=== PATIENT | male | born 1975 | race Caucasian/White ===

== ENCOUNTER 2016-09-24 17:18 | Inpatient (IN) | payer MEDICAID, SELFPAY ==
[~2016-09-24] VITALS: Ht 188 cm; Wt 85.2 kg
[~2016-09-24 17:18] MED LIST: CELE20TA OR; NEUR300C OR; aleve; aleve PO
[2016-09-24 19:24] LABS: MEAN CORPUSCULAR HEMOGLOBIN 28.6 pg (27.0-33.0); MEAN CORPUSCULAR HGB CONC 33.3 g/dl (32.0-36.5); MEAN CORPUSCULAR VOLUME 85.8 fl (80.0-96.0); RED CELL DISTRIBUTION WIDTH 14.5 % (11.5-14.5); WHITE BLOOD COUNT 9.8 K/mm3 (4.0-10.0)
[2016-09-24 19:34] LABS: AMPHETAMINES LEVEL URINE NEGATIVE (NEGATIVE); BENZODIAZEPINES URINE NEGATIVE (NEGATIVE); COCAINE METABOLITE URINE NEGATIVE (NEGATIVE); CONTROL LINE INT CTR LINE PRESENT; METHADONE URINE NEGATIVE (NEGATIVE); OPIATES URINE NEGATIVE (NEGATIVE); TRICYCLIC ANTIDEPRESS URINE NEGATIVE (NEGATIVE)
[2016-09-24 19:52] LABS: ALBUMIN 4.2 GM/DL (3.2-5.2); ALBUMIN/GLOBULIN RATIO 1.31 (1.00-1.93); ALKALINE PHOSPHATASE 61 U/L (45-117); ALT/SGPT 21 U/L (12-78); ANION GAP 9 MEQ/L (8-16); AST/SGOT 15 U/L (15-37); BILIRUBIN,DIRECT 0.1 MG/DL (0.0-0.2); BILIRUBIN,TOTAL 0.3 MG/DL (0.2-1.0); BLOOD UREA NITROGEN 20 MG/DL (7-18); CALCIUM LEVEL 9.2 MG/DL (8.5-10.1); CARBON DIOXIDE LEVEL 30 MEQ/L (21-32); CHLORIDE LEVEL 103 MEQ/L (98-107); CREATININE FOR GFR 1.19 MG/DL (0.70-1.30); GLOMERULAR FILTRATION RATE > 60.0 (>60); GLUCOSE, FASTING 125 MG/DL (70-105); POTASSIUM SERUM 4.1 MEQ/L (3.5-5.1); SODIUM LEVEL 142 MEQ/L (136-145); TOTAL PROTEIN 7.4 GM/DL (6.4-8.2)
[2016-09-24] MEDS ORDERED: MOM 30ML SUSPENSION UDC PO PRN (20:15)
[2016-09-24] MEDS ORDERED: traZODone 50 MG TAB PO PRN (20:15)
[2016-09-24] MEDS ORDERED: MAALOX 30 ML SUSP *UDC PO PRN (20:15)
[2016-09-24] MEDS ORDERED: ACETAMINOPHEN TAB 650MG DOSE (2X325MG) PO PRN (20:15)
[2016-09-24 20:41] VITALS: BP 131/80
--- NOTE | 2016-09-24 20:48 | EDDOCDS ---
Physician Documentation [facility] Name: Brenda Sweeney Age: 41 yrs Sex: Male : 1975 Arrival Date: 09/24/2016 Time: 17:18 Bed [facility] Private MD: NO PRIMARY PHYSICIAN, . Disposition: 09/24/16 20:26 Hospitalization ordered by Phani Downing for Inpatient Admission. Preliminary diagnosis is Adjustment disorder with depressed mood. - Bed requested for Admit. - Status is Inpatient Admission. slm - Condition is Stable. - Problem is new. - Symptoms are unchanged. Historical: - Allergies: PENICILLINS (Hives); - Home Meds: 1. none - PMHx: Depression; Degenerative disc disease; herniated discs C6-7; - PSHx: left eye FB; - Social history: Smoking status: Patient uses tobacco products, current every day smoker. No barriers to communication noted, The patient speaks fluent Mexican. - Family history: Not pertinent. - : The pt / caregiver states he / she is not on anticoagulants. Home medication list is obtained from the patient. - Exposure Risk Screening:: None identified. Vital Signs: 09/24 17:19 BP 152 / 92; Pulse 112; Resp 20; Temp 96.0; Pulse Ox 99% ; Weight 81.65 kg / 180.01 elp lbs; Height 6 ft. 2 in. (187.96 cm); Pain 0/10; 20:28 BP 145 / 91; Pulse 83; Resp 18; Temp 97.5(O); Pulse Ox 99% ; Pain 0/10; mas 17:19 Body Mass Index 23.11 (81.65 kg, 187.96 cm) elp MDM: 17:31 REGULAR DIET PLASTIC ROBERTS+DIET ordered. EDMS 17:38 Consult PFS/PSA/Cable Dispatcher ordered. br1 17:38 Consult PFS/PSA/Cable Dispatcher: Patient's case requires discussion with on-call br1 Psychiatrist ordered. 17:38 PSA/PFS to call Nursing Lean Manager, to enter patient data on [place] Safe Act if patient br1 involuntarily admitted or transferred for SI or HI ordered. 17:38 Confirm accurate psychiatric medication list and times of last dosage ordered. br1 17:38 Detain Pt Until Medically/PFS Cleared ordered. br1 17:40 Ethyl Alcohol (ethanol) Ordered. EDMS 18:39 Acetaminophen Level Ordered. EDMS 18:39 Basic Metabolic Profile Ordered. EDMS 18:39 Complete Blood Count Ordered. EDMS 18:39 Drug Eval Toxicology ED Only Ordered. EDMS 18:39 Liver Profile Ordered. EDMS 18:39 Salicylate Level Ordered. EDMS 18:39 Thyroid Stimulating Hormone Ordered. EDMS 19:51 Complete Blood Count Reviewed. br1 19:51 Drug Eval Toxicology ED Only Reviewed. br1 20:08 Financial registration complete. zo 20:10 Consult PFS/PSA/Cable Dispatcher complete. ml4 20:10 Consult PFS/PSA/Cable Dispatcher: Patient's case requires discussion with on-call ml4 Psychiatrist complete. 20:10 PSA/PFS to call Nursing Lean Manager, to enter patient data [place] Safe [place] if patient ml4 involuntarily admitted or transferred for SI or HI complete. 20:13 Admit to [facility]: ordered. EDMS 20:14 REGULAR DIET ordered. EDMS 20:15 [facility] Legal paperwork was scanned into [employer] and attached to record. ml4 20:21 Acetaminophen Level Reviewed. br1 20:21 Basic Metabolic Profile Reviewed. br1 20:21 Salicylate Level Reviewed. br1 20:21 Liver Profile Reviewed. br1 20:21 Thyroid Stimulating Hormone Reviewed. br1 20:45 ETHYL ALCOHOL (ETHANOL) Ordered. EDMS Signatures: Dispatcher [employer] EDMS Jennie Olea, PSA PSA ml4 Nathan Pierre Brian, MD MD br1 Leti De La Vega, RN RN Martnie Do LPN LPN slm The chart was reviewed and I authenticate all verbal orders and agree with the evaluation and treatment provided.Corrections: (The following items were deleted from the chart) 17:42 17:40 ACETAMINOPHEN LEVEL+LAB ordered. EDMS EDMS 17:42 17:40 BASIC METABOLIC PROFILE+LAB ordered. EDMS EDMS 17:42 17:40 COMPLETE BLOOD COUNT+LAB ordered. EDMS EDMS 17:42 17:40 DRUG EVAL TOXICOLOGY ED ONLY+LAB ordered. EDMS EDMS MTDD
--- NOTE | 2016-09-24 20:49 | EDDOCDS ---
Nurse's Notes [facility] Name: Brenda Sweeney Age: 41 yrs Sex: Male : 1975 Arrival Date: 09/24/2016 Time: 17:18 Bed [facility] Private MD: NO PRIMARY PHYSICIAN, . Diagnosis: Adjustment disorder with depressed mood Presentation: 09/24 17:22 Presenting complaint: Patient states: increased depression over past couple weeks with jjr some SI. Mental Health Triage Level: Level 2: The patient displays active suicidal ideations. Adult Sepsis Screening: The patient does not have new or worsening altered mentation. Patient's respiratory rate is less than 22. Systolic blood pressure is greater than 100. Patient has a qSOFA score of 0- Negative Sepsis Screen. Suicide/Homicide risk assessment- The patient admits to and/or has been reported to be having suicidal ideations. The patient reports that he/she has not been admitted to an inpatient mental health facility in the last 30 days. The patient reports that he/she has a recent or current history of substance abuse. The patient reports that he/she has a prior history of suicide attempt and/or organized plan. Status: Patient is not a visitor services representative or dependent. Transition of care: patient was not received from another setting of care. 17:22 Acuity: ALO Level 3 jjr 17:22 Method Of Arrival: Walkin/Carried/Asstd jjr Triage Assessment: 17:24 General: Appears in no apparent distress, Behavior is appropriate for age, cooperative. jjr Pain: Denies pain. Pt Declines HIV testing. Historical: - Allergies: PENICILLINS (Hives); - Home Meds: 1. none - PMHx: Depression; Degenerative disc disease; herniated discs C6-7; - PSHx: left eye FB; - Social history: Smoking status: Patient uses tobacco products, current every day smoker. No barriers to communication noted, The patient speaks fluent Slovenian. - Family history: Not pertinent. - : The pt / caregiver states he / she is not on anticoagulants. Home medication list is obtained from the patient. - Exposure Risk Screening:: None identified. Screenin:17 Screening information is obtained from the patient. Fall risk: No risks identified. slm Assistance ADL's: requires no assistance with activities of daily living. Nutritional screening: No deficits noted. Advance Directives: Currently, there is no health care proxy. There is no active DNR order. There is no living will. There is no Power of Hot Metal Mixer Operator. Advance directive information has not previously been placed in an [facility] medical record. Further advance directive information is declined. 20:30 Abuse/DV Screen: The patient / caregiver reports he/she is: not in a situation that slm causes fear, pain or injury. home support is adequate. Assessment: 19:17 General: Appears in no apparent distress, comfortable, Behavior is appropriate for age, slm cooperative, quiet. General:. Respiratory: Airway is patent Respiratory effort is even, unlabored. Derm: Skin is pink, warm & dry. 19:18 General: pt sitting on stretcher quietly labs done at this time pt denies needs slm security observing . 20:09 General: Appears in no apparent distress, comfortable, Behavior is appropriate for age, slm cooperative, quiet, pt sitting on stretcher security observing . 20:29 Reassessment: Patient appears in no apparent distress at this time. [facility] Mental Health Eval: 18:40 Mental health consult is initiated at 18:30. Status: The patient is not a ml4 visitor services representative or dependent. [facility] Behavioral Health: The patient is not an established patient of [facility] Behavioral Health. Referral Information: Evaluation referral is generated by the patient himself / herself. The patient was referred for evaluation because fleeting thoughts of suicide with no specific plan. . Subjective: The patients chief complaint is pt states, "I'm just really depressed and I want to ." Pt reports suffering from suicide for the past 2 wks with no specific plan. Suicidal triggers include having relational problems with family, along with being homeless. Admits being homeless for one year in [place], then decided to move back to [place] July(2015) hoping his family would help him out. States he's been living with his Mother since July, but now has left her residence due to on-going relational problems. Pt states, "she's an alcoholic and treats me bad." Other stressors include reflecting back on his mistakes this past summer where he was abusing Meth. Admits having trouble grasping the fact he was smoking meth and feels guilty. Pt appears very depressed at bedside, tearful, continues to voice SI, no plan. . Delusions are denied. Patient's mood is depressed, hopeless, Hallucinations are denied. Mental Health history: ADHD, alcohol abuse, depression, abusing methamphetamine. Mental Health Admissions: [facility], 01/18/12 and d/c 01/24/12 after SI with plan to jump in front of a car. He was also hospitalized to [facility] following a suicide attempt(10 Vicodin tablets mixed with alcohol) on 03/26/03 and d/c 03/31/03 Current Outpatient Mental Health Services: None. Current living environment is Family / Home Support: poor family support homeless. The patient is . Patient presents to Emergency Department with the following symptoms within the past 2 weeks: agitation, anger, anxiety, decreased appetite, depressed mood, drug abuse, excessive guilt, feelings of helplessness/hopelessness, non-compliance, poor concentration, relational problem, sleep disturbance - insomnia, suicidal ideation with no plan. Substance abuse: Patient uses marijuana one joint monthly Patient uses tobacco less than a 1/2 a pack Frequency daily. Mental status exam: Patients appearance is appropriate, Patient's behavior is cooperative, Speech is slow. Affect is flat. Mood is depressed. Hallucinations are denied. Appetite is poor. Memory is good. Energy level is normal. Content of thought is depressive. due to active SI with no plan. Thought process is intact. Cognitive level is oriented to person, place, time and situation Patient's insight is fair. Judgement is fair. Rapport with interviewer is good. Suicidal Ideation is present with no specific plan. Homicidal ideation is denied. Disposition: Medically cleared for disposition by Ezekiel Murphy MD. Narrative: Awaiting psychiatric consult... 20:05 Disposition: Psychiatric Consult is performed by phone with Dr Phain Downing MD. [facility] ml4 Admission Criteria: The patient is experiencing suicidal ideation. The patient requires continuous observation and/or control to protect self, others or property. The patient's care requires a multi-modal treatment plan under close supervision and coordination due to the complexity and severity of the patient's symptoms. The patient requires administration and monitoring of psychoactive medications by skilled medical providers due to the side effects of the psychoactive medications or significant dosage adjustments. Legal Status: Patient's legal status will be Emergency admission: [place] Safe Act: [place] Safe Act is applicable to this patient. The patient poses a risk to self or other and the Nursing Animal Trainer has been notified. He/She will enter the patient's data. DSM-V Differential Diagnosis: Adjustment Disorder (F43.2) with depressed mood (F43.21). Narrative: Notice of Status and Rights, FAQ, and Bill of Rights was given at bedside. Vital Signs: 17:19 BP 152 / 92; Pulse 112; Resp 20; Temp 96.0; Pulse Ox 99% ; Weight 81.65 kg; Height 6 elp ft. 2 in. (187.96 cm); Pain 0/10; 20:28 BP 145 / 91; Pulse 83; Resp 18; Temp 97.5(O); Pulse Ox 99% ; Pain 0/10; mas 17:19 Body Mass Index 23.11 (81.65 kg, 187.96 cm) elp Vitals: 17:19 Log In Time: September 24, 2016 at 17:17. RN notified that patient meets Red Flag elp criteria. ED Course: 17:19 Patient visited by Amy Ortiz PCA. elp 17:19 NO PRIMARY PHYSICIAN, . is Private Physician. elp 17:19 Patient moved to Waiting elp 17:21 Patient visited by Amy Ortiz PCA. elp 17:23 Triage Initiated jjr 17:25 Patient moved to [facility] jjr 17:28 Ezekiel Murphy MD is Attending Physician. br1 17:35 Patient visited by Flavia Franklin PCA. tmm1 17:51 Patient visited by Flavia Franklin PCA. tmm1 18:06 Patient visited by Flavia Franklin PCA. tmm1 18:13 Patient visited by Flavia Franklin PCA. tmm1 18:17 Patient visited by Ezekiel Murphy MD. br1 18:27 Patient visited by Flavia Franklin PCA. tmm1 18:44 Patient visited by Flavia Franklin PCA. tmm1 18:56 Patient visited by Flavia Franklin PCA. tmm1 19:10 Patient visited by Viraj Cortez, Security Aide. pjf 19:17 Martine Hickman LPN is Primary Nurse. slm 19:19 Patient visited by Martine Hickman LPN. slm 19:20 Acetaminophen Level Sent. slm 19:20 Basic Metabolic Profile Sent. slm 19:20 Complete Blood Count Sent. slm 19:20 Drug Eval Toxicology ED Only Sent. slm 19:20 Liver Profile Sent. slm 19:20 Salicylate Level Sent. slm 19:20 Thyroid Stimulating Hormone Sent. slm 19:20 Ethyl Alcohol (ethanol) Sent. slm 19:30 Patient visited by Ehsan Cleaning. mas 19:48 Patient visited by Ehsan Cleaning. mas 20:02 Patient visited by Martine Hickman LPN. [facility] 20:15 [facility] Legal paperwork was scanned into [employer] and attached to record. ml4 20:16 Patient visited by Ehsan Cleaning. mas 20:26 Phani Downing MD is Hospitalizing Provider. br1 20:29 Patient visited by Ehsan Cleaning. mas 20:30 Patient visited by Martine Hickman LPN. slm 20:30 The patient / caregiver is instructed regarding the plan of care and ED course. Patient slm has correct armband on for positive identification. Placed in psych safe attire. Bed in low position. Call light in reach. Security observing. 20:30 No IV's were initiated during this patient's visit. No procedures done that require slm assistance. 20:45 Patient visited by Ehsan Cleaning. [facility] Attachments: 20:15 E Legal paperwork ml4 Order Results: Lab Order: Acetaminophen Level; SPEC'M 09/24/16 19:14 Test: ACETAMINOPHEN LEVEL; Value: < 2.0; Range: 10.0-30.0; Abnormal: Below low normal; Units: UG/ML; Status: F Lab Order: Basic Metabolic Profile; SPEC'M 09/24/16 19:14 Test: GLUCOSE, FASTING; Value: 125; Range: 70-105; Abnormal: Above high normal; Units: MG/DL; Status: F Test: BLOOD UREA NITROGEN; Value: 20; Range: 7-18; Abnormal: Above high normal; Units: MG/DL; Status: F Test: CREATININE FOR GFR; Value: 1.19; Range: 0.70-1.30; Units: MG/DL; Status: F Test: GLOMERULAR FILTRATION RATE; Value: > 60.0; Range: >60; Status: F Test: SODIUM LEVEL; Value: 142; Range: 136-145; Units: MEQ/L; Status: F Test: POTASSIUM SERUM; Value: 4.1; Range: 3.5-5.1; Units: MEQ/L; Status: F Test: CHLORIDE LEVEL; Value: 103; Range: 98-107; Units: MEQ/L; Status: F Test: CARBON DIOXIDE LEVEL; Value: 30; Range: 21-32; Units: MEQ/L; Status: F Test: ANION GAP; Value: 9; Range: 8-16; Units: MEQ/L; Status: F Test: CALCIUM LEVEL; Value: 9.2; Range: 8.5-10.1; Units: MG/DL; Status: F Test Note: ; Units are mL/min/1.73 m2 Chronic Kidney Disease Staging per NKF: Stage I & II GFR >=60 Normal to Mildly Decreased Stage III GFR 30-59 Moderately Decreased Stage IV GFR 15-29 Severely Decreased Stage V GFR <15 Very Little GFR Left ESRD GFR <15 on PAYROLL ADMINISTRATOR Lab Order: Complete Blood Count; [facility]' 09/24/16 19:14 Test: WHITE BLOOD COUNT; Value: 9.8; Range: 4.0-10.0; Units: K/mm3; Status: F Test: RED BLOOD COUNT; Value: 5.23; Range: 4.30-6.10; Units: M/mm3; Status: F Test: HEMOGLOBIN; Value: 15.0; Range: 14.0-18.0; Units: g/dl; Status: F Test: HEMATOCRIT; Value: 44.9; Range: 42.0-52.0; Units: %; Status: F Test: MEAN CORPUSCULAR VOLUME; Value: 85.8; Range: 80.0-96.0; Units: fl; Status: F Test: MEAN CORPUSCULAR HEMOGLOBIN; Value: 28.6; Range: 27.0-33.0; Units: pg; Status: F Test: MEAN CORPUSCULAR HGB CONC; Value: 33.3; Range: 32.0-36.5; Units: g/dl; Status: F Test: RED CELL DISTRIBUTION WIDTH; Value: 14.5; Range: 11.5-14.5; Units: %; Status: F Test: PLATELET COUNT, AUTOMATED; Value: 324; Range: 150-450; Units: k/mm3; Status: F Lab Order: Drug Eval Toxicology ED Only; SPEC'M 09/24/16 19:14 Test: AMPHETAMINES LEVEL URINE; Value: NEGATIVE; Range: NEGATIVE; Status: F Test: BARBITURATES URINE; Value: NEGATIVE; Range: NEGATIVE; Status: F Test: BENZODIAZEPINES URINE; Value: NEGATIVE; Range: NEGATIVE; Status: F Test: CANNABINOIDS URINE; Value: NEGATIVE; Range: NEGATIVE; Status: F Test: COCAINE METABOLITE URINE; Value: NEGATIVE; Range: NEGATIVE; Status: F Test: METHADONE URINE; Value: NEGATIVE; Range: NEGATIVE; Status: F Test: OPIATES URINE; Value: NEGATIVE; Range: NEGATIVE; Status: F Test: TRICYCLIC ANTIDEPRESS URINE; Value: NEGATIVE; Range: NEGATIVE; Status: F Test Note: ; ALL PRESUMPTIVE POSITIVE FINDINGS ARE UNCONFIRMED NORMAL VALUES THRESHOLD IN NG/ML AMPHETAMINES 1000 METHAMPHETAMINES 1000 BARBITURATES 300 BENZODIAZEPINES 300 CANNABINOIDS (THC) 50 COCAINE METABOLITE 300 METHADONE 300 OPIATES 300 PHENCYCLIDINE 25 TRICYCLIC ANTIDEPRESSANTS 1000 RESULTS ARE FOR MEDICAL PURPOSES ONLY. ALL URINE SPECIMENS WILL BE SAVED FOR 3 DAYS. IF CONFIRMATION OF A PRESUMPTIVE POSTIVE SCREEN RESULT IS DESIRED, CALL CHEMISTRY ([phone]) AND REQUEST URINE TO BE SENT TO REFERENCE LAB. FOR A LIST OF CLOSELY RELATED COMPOUNDS PLEASE CALL THE LAB. Lab Order: Liver Profile; SPEC'M 09/24/16 19:14 Test: AST/SGOT; Value: 15; Range: 15-37; Units: U/L; Status: F Test: ALT/SGPT; Value: 21; Range: 12-78; Units: U/L; Status: F Test: ALKALINE PHOSPHATASE; Value: 61; Range: 45-117; Units: U/L; Status: F Test: BILIRUBIN,TOTAL; Value: 0.3; Range: 0.2-1.0; Units: MG/DL; Status: F Test: BILIRUBIN,DIRECT; Value: 0.1; Range: 0.0-0.2; Units: MG/DL; Status: F Test: TOTAL PROTEIN; Value: 7.4; Range: 6.4-8.2; Units: GM/DL; Status: F Test: ALBUMIN; Value: 4.2; Range: 3.2-5.2; Units: GM/DL; Status: F Test: ALBUMIN/GLOBULIN RATIO; Value: 1.31; Range: 1.00-1.93; Status: F Lab Order: Salicylate Level; SPEC'M 09/24/16 19:14 Test: SALICYLATE LEVEL; Value: < 1.7; Range: 5.0-30.0; Abnormal: Below low normal; Units: MG/DL; Status: F Lab Order: Thyroid Stimulating Hormone; SPEC'M 09/24/16 19:14 Test: THYROID STIMULATING HORMONE; Value: 0.593; Range: 0.358-3.740; Units: uIU/ML; Status: F Outcome: 20:26 Decision to Hospitalize by Provider. br1 20:29 Discharge Assessment: Patient awake, alert and oriented x 3. No cognitive and/or slm functional deficits noted. Patient verbalized understanding of disposition instructions. patient administered narcotics - no. The following High Risk Discharge criteria are identified: None. Admitted to Psych accompanied by tech, via wheelchair, with chart. Condition: stable. No special radiology studies were completed. Property removed, inventory done, secured in belongings bag- placed in locked locker. 20:47 Patient left the ED. slm Signatures: Viraj Cortez, Security Aide Securpsobeidaf Jennie Olea, PSA PSA ml4 Ezekiel Murphy MD MD br1 Leti De La Vega, RN RN Ehsan Prakash Theresa, MEMORY CARE DIRECTOR MEMORY CARE DIRECTOR tmm1 Patchen, Amy, MEMORY CARE DIRECTOR MEMORY CARE DIRECTOR elp Martine Hickman,BILINGUAL ACCOUNT MANAGER BILINGUAL ACCOUNT MANAGER slm MTDD
[2016-09-25 06:08] VITALS: BP 102/58
[2016-09-25] MEDS ORDERED: NICOTINE 21MG/24HR 1 EA TRANSDERMAL TD SCH (09:00)
[2016-09-25] MEDS: SERTRALINE HCL 50 MG TAB PO SCH (10:20)
[2016-09-25 18:00] VITALS: BP 142/68
[2016-09-26 06:47] VITALS: BP 117/72
[2016-09-26] MEDS: SERTRALINE HCL 50 MG TAB PO SCH (08:28)
--- NOTE | 2016-09-26 10:48 | HPE ---
DATE OF ADMISSION: HISTORY OF PRESENT ILLNESS: Please refer to psychiatric history and evaluation for further details on this admission. This examination and history is intended for medical issues, which may need treatment, followup or consultation on this 41-year-old male. PRIMARY CARE PROVIDER: Currently he has none. ALLERGIES: PENICILLIN. SOCIAL HISTORY: He is . Her lives alone. He stays at home. ETOH, he has a history of alcohol abuse. He states he only drinks once or twice a year now. Smoking, he smokes one pack of cigarettes per day. Recreational drug use, he was using methamphetamine (meth) daily, states he has not used it for two months. Occasionally smokes marijuana. HOME MEDICATIONS: None. PAST MEDICAL HISTORY: Degenerative joint disease. PAST SURGICAL HISTORY: Removal of foreign body left eye. FAMILY HISTORY: Mother has he states alcohol problems. LABORATORY STUDIES: CBC was normal. Electrolytes were normal. BUN 20, creatinine 1.19, urine toxicology was negative. REVIEW OF SYSTEMS: Ten system review was done. Other than occasional back pain he had no complaints. PHYSICAL EXAMINATION: GENERAL: 41-year-old cooperative male in no acute distress. The patient is awake, alert and oriented times three. VITAL SIGNS: Height 74 inches, weight 81.6 kilograms, Body maximum index (BMI) 23.1, blood pressure 140/68, pulse 78, respirations 16, temperature 96.9. HEENT: Pupils equal, round, reactive to light. Extraocular muscles intact. Cornea and sclerae clear. Conjunctiva is normal. No facial asymmetry. Pharynx, tongue and gum is pink and moist. Tongue is midline. NECK: Neck is supple without lymphadenopathy. No thyromegaly. No goiter. CHEST: Clear to auscultation without wheeze or retraction. HEART: Heart is regular. ABDOMEN: Benign. Bowel sounds positive. Genitourinary ()/Rectal: Not done. Extremities: Equal strength with full range of motion. No clubbing, cyanosis, or edema. Peripheral pulses are equal and palpable bilaterally. SKIN: Warm and dry. IMPRESSION AND PLAN: 1. Psychiatric plan per psychiatry. 2. Nicotine patch available. 3. Degenerative joint disease currently stable. 4. No acute medical issues.
[2016-09-26 18:00] VITALS: BP 135/75
--- NOTE | 2016-09-26 21:48 | EDDOCDS ---
Nurse's Notes [facility] Name: Brenda Sweeney Age: 41 yrs Sex: Male : 1975 Arrival Date: 09/24/2016 Time: 17:18 Bed [facility] Private MD: NO PRIMARY PHYSICIAN, . Diagnosis: Adjustment disorder with depressed mood Presentation: 09/24 17:22 Presenting complaint: Patient states: increased depression over past couple weeks with jjr some SI. Mental Health Triage Level: Level 2: The patient displays active suicidal ideations. Adult Sepsis Screening: The patient does not have new or worsening altered mentation. Patient's respiratory rate is less than 22. Systolic blood pressure is greater than 100. Patient has a qSOFA score of 0- Negative Sepsis Screen. Suicide/Homicide risk assessment- The patient admits to and/or has been reported to be having suicidal ideations. The patient reports that he/she has not been admitted to an inpatient mental health facility in the last 30 days. The patient reports that he/she has a recent or current history of substance abuse. The patient reports that he/she has a prior history of suicide attempt and/or organized plan. Status: Patient is not a service coordinator or dependent. Transition of care: patient was not received from another setting of care. 17:22 Acuity: ALO Level 3 jjr 17:22 Method Of Arrival: Walkin/Carried/Asstd jjr Triage Assessment: 17:24 General: Appears in no apparent distress, Behavior is appropriate for age, cooperative. jjr Pain: Denies pain. Pt Declines HIV testing. Historical: - Allergies: PENICILLINS (Hives); - Home Meds: 1. none - PMHx: Depression; Degenerative disc disease; herniated discs C6-7; - PSHx: left eye FB; - Social history: Smoking status: Patient uses tobacco products, current every day smoker. No barriers to communication noted, The patient speaks fluent Maori. - Family history: Not pertinent. - : The pt / caregiver states he / she is not on anticoagulants. Home medication list is obtained from the patient. - Exposure Risk Screening:: None identified. Screenin:17 Screening information is obtained from the patient. Fall risk: No risks identified. slm Assistance ADL's: requires no assistance with activities of daily living. Nutritional screening: No deficits noted. Advance Directives: Currently, there is no health care proxy. There is no active DNR order. There is no living will. There is no Power of Real Time Analyst. Advance directive information has not previously been placed in an [facility] medical record. Further advance directive information is declined. 20:30 Abuse/DV Screen: The patient / caregiver reports he/she is: not in a situation that slm causes fear, pain or injury. home support is adequate. Assessment: 19:17 General: Appears in no apparent distress, comfortable, Behavior is appropriate for age, slm cooperative, quiet. General:. Respiratory: Airway is patent Respiratory effort is even, unlabored. Derm: Skin is pink, warm & dry. 19:18 General: pt sitting on stretcher quietly labs done at this time pt denies needs slm security observing . 20:09 General: Appears in no apparent distress, comfortable, Behavior is appropriate for age, slm cooperative, quiet, pt sitting on stretcher security observing . 20:29 Reassessment: Patient appears in no apparent distress at this time. [facility] Mental Health Eval: 18:40 Mental health consult is initiated at 18:30. Status: The patient is not a ml4 service coordinator or dependent. [facility] Behavioral Health: The patient is not an established patient of [facility] Behavioral Health. Referral Information: Evaluation referral is generated by the patient himself / herself. The patient was referred for evaluation because fleeting thoughts of suicide with no specific plan. . Subjective: The patients chief complaint is pt states, "I'm just really depressed and I want to ." Pt reports suffering from suicide for the past 2 wks with no specific plan. Suicidal triggers include having relational problems with family, along with being homeless. Admits being homeless for one year in [place], then decided to move back to [place] July(2015) hoping his family would help him out. States he's been living with his Mother since July, but now has left her residence due to on-going relational problems. Pt states, "she's an alcoholic and treats me bad." Other stressors include reflecting back on his mistakes this past summer where he was abusing Meth. Admits having trouble grasping the fact he was smoking meth and feels guilty. Pt appears very depressed at bedside, tearful, continues to voice SI, no plan. . Delusions are denied. Patient's mood is depressed, hopeless, Hallucinations are denied. Mental Health history: ADHD, alcohol abuse, depression, abusing methamphetamine. Mental Health Admissions: [facility], 01/18/12 and d/c 01/24/12 after SI with plan to jump in front of a car. He was also hospitalized to [facility] following a suicide attempt(10 Vicodin tablets mixed with alcohol) on 03/26/03 and d/c 03/31/03 Current Outpatient Mental Health Services: None. Current living environment is Family / Home Support: poor family support homeless. The patient is . Patient presents to Emergency Department with the following symptoms within the past 2 weeks: agitation, anger, anxiety, decreased appetite, depressed mood, drug abuse, excessive guilt, feelings of helplessness/hopelessness, non-compliance, poor concentration, relational problem, sleep disturbance - insomnia, suicidal ideation with no plan. Substance abuse: Patient uses marijuana one joint monthly Patient uses tobacco less than a 1/2 a pack Frequency daily. Mental status exam: Patients appearance is appropriate, Patient's behavior is cooperative, Speech is slow. Affect is flat. Mood is depressed. Hallucinations are denied. Appetite is poor. Memory is good. Energy level is normal. Content of thought is depressive. due to active SI with no plan. Thought process is intact. Cognitive level is oriented to person, place, time and situation Patient's insight is fair. Judgement is fair. Rapport with interviewer is good. Suicidal Ideation is present with no specific plan. Homicidal ideation is denied. Disposition: Medically cleared for disposition by Ezekiel Murphy MD. Narrative: Awaiting psychiatric consult... 20:05 Disposition: Psychiatric Consult is performed by phone with Dr Phani Downing MD. [facility] ml4 Admission Criteria: The patient is experiencing suicidal ideation. The patient requires continuous observation and/or control to protect self, others or property. The patient's care requires a multi-modal treatment plan under close supervision and coordination due to the complexity and severity of the patient's symptoms. The patient requires administration and monitoring of psychoactive medications by skilled medical providers due to the side effects of the psychoactive medications or significant dosage adjustments. Legal Status: Patient's legal status will be Emergency admission: [place] Safe Act: [place] Safe Act is applicable to this patient. The patient poses a risk to self or other and the Nursing Opticianry Teacher has been notified. He/She will enter the patient's data. DSM-V Differential Diagnosis: Adjustment Disorder (F43.2) with depressed mood (F43.21). Narrative: Notice of Status and Rights, FAQ, and Bill of Rights was given at bedside. Vital Signs: 17:19 BP 152 / 92; Pulse 112; Resp 20; Temp 96.0; Pulse Ox 99% ; Weight 81.65 kg; Height 6 elp ft. 2 in. (187.96 cm); Pain 0/10; 20:28 BP 145 / 91; Pulse 83; Resp 18; Temp 97.5(O); Pulse Ox 99% ; Pain 0/10; mas 17:19 Body Mass Index 23.11 (81.65 kg, 187.96 cm) elp Vitals: 17:19 Log In Time: September 24, 2016 at 17:17. RN notified that patient meets Red Flag elp criteria. ED Course: 17:19 Patient visited by Amy Ortiz PCA. elp 17:19 NO PRIMARY PHYSICIAN, . is Private Physician. elp 17:19 Patient moved to Waiting elp 17:21 Patient visited by Amy Ortiz PCA. elp 17:23 Triage Initiated jjr 17:25 Patient moved to [facility] jjr 17:28 Ezekiel Murphy MD is Attending Physician. br1 17:35 Patient visited by Flavia Franklin PCA. tmm1 17:51 Patient visited by Flavia Franklin PCA. tmm1 18:06 Patient visited by Flavia Franklin PCA. tmm1 18:13 Patient visited by Flavia Franklin PCA. tmm1 18:17 Patient visited by Ezekiel Murphy MD. br1 18:27 Patient visited by Flavia Franklin PCA. tmm1 18:44 Patient visited by Flavia Franklin PCA. tmm1 18:56 Patient visited by Flavia Franklin PCA. tmm1 19:10 Patient visited by Viraj Cortez, Security Aide. pjf 19:17 Martine Hickman LPN is Primary Nurse. slm 19:19 Patient visited by Martine Hickman LPN. slm 19:20 Acetaminophen Level Sent. slm 19:20 Basic Metabolic Profile Sent. slm 19:20 Complete Blood Count Sent. slm 19:20 Drug Eval Toxicology ED Only Sent. slm 19:20 Liver Profile Sent. slm 19:20 Salicylate Level Sent. slm 19:20 Thyroid Stimulating Hormone Sent. slm 19:20 Ethyl Alcohol (ethanol) Sent. slm 19:30 Patient visited by Ehsan Cleaning. mas 19:48 Patient visited by Ehsan Cleaning. mas 20:02 Patient visited by Martine Hickman LPN. slm 20:15 E Legal paperwork was scanned into [employer] and attached to record. ml4 20:16 Patient visited by Ehsan Cleaning. mas 20:26 Phani Downing MD is Hospitalizing Provider. br1 20:29 Patient visited by Ehsan Cleaning. mas 20:30 Patient visited by Martine Hickman LPN. slm 20:30 The patient / caregiver is instructed regarding the plan of care and ED course. Patient slm has correct armband on for positive identification. Placed in psych safe attire. Bed in low position. Call light in reach. Security observing. 20:30 No IV's were initiated during this patient's visit. No procedures done that require slm assistance. 20:45 Patient visited by Ehsan Cleaning. mas 21:06 [facility] Payment Agreement was scanned into [employer] and attached to record. zo 09/25 20:56 T-Sheet-- Draft Copy was scanned into [employer] and attached to record. klr Attachments: 09/24 20:15 E Legal paperwork ml4 Order Results: Lab Order: Acetaminophen Level; SPEC'M 09/24/16 19:14 Test: ACETAMINOPHEN LEVEL; Value: < 2.0; Range: 10.0-30.0; Abnormal: Below low normal; Units: UG/ML; Status: F Lab Order: Basic Metabolic Profile; SPEC'M 09/24/16 19:14 Test: GLUCOSE, FASTING; Value: 125; Range: 70-105; Abnormal: Above high normal; Units: MG/DL; Status: F Test: BLOOD UREA NITROGEN; Value: 20; Range: 7-18; Abnormal: Above high normal; Units: MG/DL; Status: F Test: CREATININE FOR GFR; Value: 1.19; Range: 0.70-1.30; Units: MG/DL; Status: F Test: GLOMERULAR FILTRATION RATE; Value: > 60.0; Range: >60; Status: F Test: SODIUM LEVEL; Value: 142; Range: 136-145; Units: MEQ/L; Status: F Test: POTASSIUM SERUM; Value: 4.1; Range: 3.5-5.1; Units: MEQ/L; Status: F Test: CHLORIDE LEVEL; Value: 103; Range: 98-107; Units: MEQ/L; Status: F Test: CARBON DIOXIDE LEVEL; Value: 30; Range: 21-32; Units: MEQ/L; Status: F Test: ANION GAP; Value: 9; Range: 8-16; Units: MEQ/L; Status: F Test: CALCIUM LEVEL; Value: 9.2; Range: 8.5-10.1; Units: MG/DL; Status: F Test Note: ; Units are mL/min/1.73 m2 Chronic Kidney Disease Staging per NKF: Stage I & II GFR >=60 Normal to Mildly Decreased Stage III GFR 30-59 Moderately Decreased Stage IV GFR 15-29 Severely Decreased Stage V GFR <15 Very Little GFR Left ESRD GFR <15 on MANAGER CASH Lab Order: Complete Blood Count; SPEC'M 09/24/16 19:14 Test: WHITE BLOOD COUNT; Value: 9.8; Range: 4.0-10.0; Units: K/mm3; Status: F Test: RED BLOOD COUNT; Value: 5.23; Range: 4.30-6.10; Units: M/mm3; Status: F Test: HEMOGLOBIN; Value: 15.0; Range: 14.0-18.0; Units: g/dl; Status: F Test: HEMATOCRIT; Value: 44.9; Range: 42.0-52.0; Units: %; Status: F Test: MEAN CORPUSCULAR VOLUME; Value: 85.8; Range: 80.0-96.0; Units: fl; Status: F Test: MEAN CORPUSCULAR HEMOGLOBIN; Value: 28.6; Range: 27.0-33.0; Units: pg; Status: F Test: MEAN CORPUSCULAR HGB CONC; Value: 33.3; Range: 32.0-36.5; Units: g/dl; Status: F Test: RED CELL DISTRIBUTION WIDTH; Value: 14.5; Range: 11.5-14.5; Units: %; Status: F Test: PLATELET COUNT, AUTOMATED; Value: 324; Range: 150-450; Units: k/mm3; Status: F Lab Order: Drug Eval Toxicology ED Only; SPEC'M 09/24/16 19:14 Test: AMPHETAMINES LEVEL URINE; Value: NEGATIVE; Range: NEGATIVE; Status: F Test: BARBITURATES URINE; Value: NEGATIVE; Range: NEGATIVE; Status: F Test: BENZODIAZEPINES URINE; Value: NEGATIVE; Range: NEGATIVE; Status: F Test: CANNABINOIDS URINE; Value: NEGATIVE; Range: NEGATIVE; Status: F Test: COCAINE METABOLITE URINE; Value: NEGATIVE; Range: NEGATIVE; Status: F Test: METHADONE URINE; Value: NEGATIVE; Range: NEGATIVE; Status: F Test: OPIATES URINE; Value: NEGATIVE; Range: NEGATIVE; Status: F Test: TRICYCLIC ANTIDEPRESS URINE; Value: NEGATIVE; Range: NEGATIVE; Status: F Test Note: ; ALL PRESUMPTIVE POSITIVE FINDINGS ARE UNCONFIRMED NORMAL VALUES THRESHOLD IN NG/ML AMPHETAMINES 1000 METHAMPHETAMINES 1000 BARBITURATES 300 BENZODIAZEPINES 300 CANNABINOIDS (THC) 50 COCAINE METABOLITE 300 METHADONE 300 OPIATES 300 PHENCYCLIDINE 25 TRICYCLIC ANTIDEPRESSANTS 1000 RESULTS ARE FOR MEDICAL PURPOSES ONLY. ALL URINE SPECIMENS WILL BE SAVED FOR 3 DAYS. IF CONFIRMATION OF A PRESUMPTIVE POSTIVE SCREEN RESULT IS DESIRED, CALL CHEMISTRY ([phone]) AND REQUEST URINE TO BE SENT TO REFERENCE LAB. FOR A LIST OF CLOSELY RELATED COMPOUNDS PLEASE CALL THE LAB. Lab Order: Liver Profile; SPEC'M 09/24/16 19:14 Test: AST/SGOT; Value: 15; Range: 15-37; Units: U/L; Status: F Test: ALT/SGPT; Value: 21; Range: 12-78; Units: U/L; Status: F Test: ALKALINE PHOSPHATASE; Value: 61; Range: 45-117; Units: U/L; Status: F Test: BILIRUBIN,TOTAL; Value: 0.3; Range: 0.2-1.0; Units: MG/DL; Status: F Test: BILIRUBIN,DIRECT; Value: 0.1; Range: 0.0-0.2; Units: MG/DL; Status: F Test: TOTAL PROTEIN; Value: 7.4; Range: 6.4-8.2; Units: GM/DL; Status: F Test: ALBUMIN; Value: 4.2; Range: 3.2-5.2; Units: GM/DL; Status: F Test: ALBUMIN/GLOBULIN RATIO; Value: 1.31; Range: 1.00-1.93; Status: F Lab Order: Salicylate Level; SPEC'M 09/24/16 19:14 Test: SALICYLATE LEVEL; Value: < 1.7; Range: 5.0-30.0; Abnormal: Below low normal; Units: MG/DL; Status: F Lab Order: Thyroid Stimulating Hormone; SPEC'M 09/24/16 19:14 Test: THYROID STIMULATING HORMONE; Value: 0.593; Range: 0.358-3.740; Units: uIU/ML; Status: F Lab Order: ETHYL ALCOHOL (ETHANOL); SPEC'M 09/24/16 19:12 Test: ETHYL ALCOHOL (ETHANOL); Value: < 0.003; Range: 0.000-0.010; Units: %; Status: F Outcome: 09/24 20:26 Decision to Hospitalize by Provider. br1 20:29 Discharge Assessment: Patient awake, alert and oriented x 3. No cognitive and/or slm functional deficits noted. Patient verbalized understanding of disposition instructions. patient administered narcotics - no. The following High Risk Discharge criteria are identified: None. Admitted to Psych accompanied by tech, via wheelchair, with chart. Condition: stable. No special radiology studies were completed. Property removed, inventory done, secured in belongings bag- placed in locked locker. 20:47 Patient left the ED. slm Signatures: Viraj Cortez, Security Aide Secotff Jennie Olea, PSA PSA ml4 Nathan Pierre Brian, MD MD br1 Leti De La Vega, GEORGE RN Ehsan Prakash Theresa, SPRAY FOAM INSTALLER SPRAY FOAM INSTALLER tmm1 Diana, Amy, SPRAY FOAM INSTALLER SPRAY FOAM INSTALLER elp Martine Hickman,MOLD BUILDER MOLD BUILDER slm Marilee Francis Chart Complete MTDD
--- NOTE | 2016-09-26 21:48 | EDDOCDS ---
Physician Documentation [facility] Name: Brenda Sweeney Age: 41 yrs Sex: Male : 1975 Arrival Date: 09/24/2016 Time: 17:18 Bed [facility] Private MD: NO PRIMARY PHYSICIAN, . Disposition: 09/24/16 20:26 Hospitalization ordered by Phani Downing for Inpatient Admission. Preliminary diagnosis is Adjustment disorder with depressed mood. - Bed requested for Admit. - Status is Inpatient Admission. slm - Condition is Stable. - Problem is new. - Symptoms are unchanged. Historical: - Allergies: PENICILLINS (Hives); - Home Meds: 1. none - PMHx: Depression; Degenerative disc disease; herniated discs C6-7; - PSHx: left eye FB; - Social history: Smoking status: Patient uses tobacco products, current every day smoker. No barriers to communication noted, The patient speaks fluent Libyan. - Family history: Not pertinent. - : The pt / caregiver states he / she is not on anticoagulants. Home medication list is obtained from the patient. - Exposure Risk Screening:: None identified. Vital Signs: 09/24 17:19 BP 152 / 92; Pulse 112; Resp 20; Temp 96.0; Pulse Ox 99% ; Weight 81.65 kg / 180.01 elp lbs; Height 6 ft. 2 in. (187.96 cm); Pain 0/10; 20:28 BP 145 / 91; Pulse 83; Resp 18; Temp 97.5(O); Pulse Ox 99% ; Pain 0/10; mas 17:19 Body Mass Index 23.11 (81.65 kg, 187.96 cm) elp MDM: 17:31 REGULAR DIET PLASTIC ROBERTS+DIET ordered. EDMS 17:38 Consult PFS/PSA/Wreath Maker ordered. br1 17:38 Consult PFS/PSA/Wreath Maker: Patient's case requires discussion with on-call br1 Psychiatrist ordered. 17:38 PSA/PFS to call Nursing Sap Director, to enter patient data on [place] Safe Act if patient br1 involuntarily admitted or transferred for SI or HI ordered. 17:38 Confirm accurate psychiatric medication list and times of last dosage ordered. br1 17:38 Detain Pt Until Medically/PFS Cleared ordered. br1 17:40 Ethyl Alcohol (ethanol) Ordered. EDMS 18:39 Acetaminophen Level Ordered. EDMS 18:39 Basic Metabolic Profile Ordered. EDMS 18:39 Complete Blood Count Ordered. EDMS 18:39 Drug Eval Toxicology ED Only Ordered. EDMS 18:39 Liver Profile Ordered. EDMS 18:39 Salicylate Level Ordered. EDMS 18:39 Thyroid Stimulating Hormone Ordered. EDMS 19:51 Complete Blood Count Reviewed. br1 19:51 Drug Eval Toxicology ED Only Reviewed. br1 20:08 Financial registration complete. zo 20:10 Consult PFS/PSA/Wreath Maker complete. ml4 20:10 Consult PFS/PSA/Wreath Maker: Patient's case requires discussion with on-call ml4 Psychiatrist complete. 20:10 PSA/PFS to call Nursing Sap Director, to enter patient data on [place] Safe Act if patient ml4 involuntarily admitted or transferred for SI or HI complete. 20:13 Admit to [facility]: ordered. EDMS 20:14 REGULAR DIET ordered. EDMS 20:15 [facility] Legal paperwork was scanned into [employer] and attached to record. ml4 20:21 Acetaminophen Level Reviewed. br1 20:21 Basic Metabolic Profile Reviewed. br1 20:21 Salicylate Level Reviewed. br1 20:21 Liver Profile Reviewed. br1 20:21 Thyroid Stimulating Hormone Reviewed. br1 20:45 ETHYL ALCOHOL (ETHANOL) Ordered. EDMS 21:06 [facility] Payment Agreement was scanned into [employer] and attached to record. zo 09/25 20:56 T-Sheet-- Draft Copy was scanned into [employer] and attached to record. klr Signatures: Dispatcher [employer] EDMS Jennie Olea, PSA PSA ml4 Nathan Pierre Brian, MD MD br1 Leti De La Vega, GEORGE RN Martine Do LPN LPN slm Redder, Kathie klr The chart was reviewed and I authenticate all verbal orders and agree with the evaluation and treatment provided.Corrections: (The following items were deleted from the chart) 09/24 17:42 17:40 ACETAMINOPHEN LEVEL+LAB ordered. EDMS EDMS 17:42 17:40 BASIC METABOLIC PROFILE+LAB ordered. EDMS EDMS 17:42 17:40 COMPLETE BLOOD COUNT+LAB ordered. EDMS EDMS 17:42 17:40 DRUG EVAL TOXICOLOGY ED ONLY+LAB ordered. EDMS EDMS Attachments: 21:06 [facility] Payment Agreement zo 09/25 20:56 T-Sheet-- Draft Copy klr Chart Complete MTDD
--- NOTE | 2016-09-26 21:48 | EDDOCDS ---
Physician Documentation [facility] Name: Brenda Sweeney Age: 41 yrs Sex: Male : 1975 Arrival Date: 09/24/2016 Time: 17:18 Bed [facility] Private MD: NO PRIMARY PHYSICIAN, . Disposition: 09/24/16 20:26 Hospitalization ordered by Phani Downing for Inpatient Admission. Preliminary diagnosis is Adjustment disorder with depressed mood. - Bed requested for Admit. - Status is Inpatient Admission. slm - Condition is Stable. - Problem is new. - Symptoms are unchanged. Historical: - Allergies: PENICILLINS (Hives); - Home Meds: 1. none - PMHx: Depression; Degenerative disc disease; herniated discs C6-7; - PSHx: left eye FB; - Social history: Smoking status: Patient uses tobacco products, current every day smoker. No barriers to communication noted, The patient speaks fluent Northern Irish. - Family history: Not pertinent. - : The pt / caregiver states he / she is not on anticoagulants. Home medication list is obtained from the patient. - Exposure Risk Screening:: None identified. Vital Signs: 09/24 17:19 BP 152 / 92; Pulse 112; Resp 20; Temp 96.0; Pulse Ox 99% ; Weight 81.65 kg / 180.01 elp lbs; Height 6 ft. 2 in. (187.96 cm); Pain 0/10; 20:28 BP 145 / 91; Pulse 83; Resp 18; Temp 97.5(O); Pulse Ox 99% ; Pain 0/10; mas 17:19 Body Mass Index 23.11 (81.65 kg, 187.96 cm) elp MDM: 17:31 REGULAR DIET PLASTIC ROBERTS+DIET ordered. EDMS 17:38 Consult PFS/PSA/Animal Surgeon ordered. br1 17:38 Consult PFS/PSA/Animal Surgeon: Patient's case requires discussion with on-call br1 Psychiatrist ordered. 17:38 PSA/PFS to call Nursing Sheet Layer, to enter patient data [place] Safe [place] if patient br1 involuntarily admitted or transferred for SI or HI ordered. 17:38 Confirm accurate psychiatric medication list and times of last dosage ordered. br1 17:38 Detain Pt Until Medically/PFS Cleared ordered. br1 17:40 Ethyl Alcohol (ethanol) Ordered. EDMS 18:39 Acetaminophen Level Ordered. EDMS 18:39 Basic Metabolic Profile Ordered. EDMS 18:39 Complete Blood Count Ordered. EDMS 18:39 Drug Eval Toxicology ED Only Ordered. EDMS 18:39 Liver Profile Ordered. EDMS 18:39 Salicylate Level Ordered. EDMS 18:39 Thyroid Stimulating Hormone Ordered. EDMS 19:51 Complete Blood Count Reviewed. br1 19:51 Drug Eval Toxicology ED Only Reviewed. br1 20:08 Financial registration complete. zo 20:10 Consult PFS/PSA/Animal Surgeon complete. ml4 20:10 Consult PFS/PSA/Animal Surgeon: Patient's case requires discussion with on-call ml4 Psychiatrist complete. 20:10 PSA/PFS to call Nursing Sheet Layer, to enter patient data [place] if patient ml4 involuntarily admitted or transferred for SI or HI complete. 20:13 Admit to [facility]: ordered. EDMS 20:14 REGULAR DIET ordered. EDMS 20:15 [facility] Legal paperwork was scanned into [employer] and attached to record. ml4 20:21 Acetaminophen Level Reviewed. br1 20:21 Basic Metabolic Profile Reviewed. br1 20:21 Salicylate Level Reviewed. br1 20:21 Liver Profile Reviewed. br1 20:21 Thyroid Stimulating Hormone Reviewed. br1 20:45 ETHYL ALCOHOL (ETHANOL) Ordered. EDMS 21:06 [place] Payment Agreement was scanned into [employer] and attached to record. zo 09/25 20:56 T-Sheet-- Draft Copy was scanned into [employer] and attached to record. klr Signatures: Dispatcher [employer] EDMS Jennie Olea, PSA PSA ml4 Nathan Pierre Brian, MD MD br1 Leti De La Vega, GEORGE RN Martine Do LPN LPN slm Redder, Kathie klr The chart was reviewed and I authenticate all verbal orders and agree with the evaluation and treatment provided.Corrections: (The following items were deleted from the chart) 09/24 17:42 17:40 ACETAMINOPHEN LEVEL+LAB ordered. EDMS EDMS 17:42 17:40 BASIC METABOLIC PROFILE+LAB ordered. EDMS EDMS 17:42 17:40 COMPLETE BLOOD COUNT+LAB ordered. EDMS EDMS 17:42 17:40 DRUG EVAL TOXICOLOGY ED ONLY+LAB ordered. EDMS EDMS Attachments: 21:06 [facility] Payment Agreement zo 09/25 20:56 T-Sheet-- Draft Copy klr Chart Complete MTDD
[2016-09-27 06:37] VITALS: BP 144/66
[2016-09-27] MEDS: SERTRALINE HCL 50 MG TAB PO SCH (08:43)
[2016-09-27 18:00] VITALS: BP 135/65
[2016-09-27] MEDS ORDERED: QUEtiapine FUMARATE 100 MG TAB PO SCH (21:00)
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
[2016-09-28 06:30] VITALS: BP 119/65
[2016-09-28] MEDS ORDERED: buPROPion 75 MG TAB PO SCH ×2 (08:00→21:00)
[2016-09-28 18:00] VITALS: BP 131/75
[2016-09-28] MEDS ORDERED: diphenhydrAMINE 50 MG CAP PO PRN (19:30)
[2016-09-29 06:42] VITALS: BP 128/63
[2016-09-29 18:00] VITALS: BP 145/70
--- NOTE | 2016-09-29 22:53 | IPNPDOC ---
[facility] Progress Note Progress Note DATE OF SERVICE: 09/27/16 Subjective: Patient reports improving mood. He reports fair sleep last night. Patient expresses happiness with having a dx which explains why he behaves and experiences the mood issues he does. Patient reports his inability to express his feelings, his constant feeling of being on guard, his paranoia is understandable now. He reports having feelings of guilt, but was counseled to not berate himself for a behavior he did unintentionally, symptomatic of PTSD. Patient acknowledged understanding. Patient is med compliance and denies s/e's. Patient does indorse increased anxiety on the new unit and reports increased frequency of cravings to use illicit substances. He reports no issues on the unit with peers or staff. He reports no RIOS, CP, Abd pain, or N/V/C /D. Objective: VITAL SIGNS: See below. NEW TEST RESULTS: None CURRENT MEDICATIONS: See below. MENTAL STATUS EXAMINATION: Patient is a 41-year-old male who appears stated age, calm and cooperative, in no acute distress Speech: Is regular rate and rhythm, spontaneous Thought processes: Linear, Goal directed. Thought content: Appreciative of care received at [facility], mildly anxious on starting new in substance rehab program Description of abnormal or psychotic thoughts: No perceptual issues noted or reported. Judgment: fair. Insight: fair Orientation to time, place and person. Recent and remote memory: Intact. Immediate short-term and long-term memory is: intact. Attention span and concentration: fair. Language: Normal. Fund of knowledge: good. Mood: Euthymic Affect: Bright Assessment: PTSD Amphetamine use d/o, severe Cannabis use d/o Plan: ----- - Continue Venlafaxine 75 mg by mouth daily for PTSD symptoms. - Continue Depakote 250mg po BID for PTSD mood/anger symptoms. TIME SPENT: [30] minutes. Vital Signs Vital Signs Date Time Temp Pulse Resp B/P Pulse Ox O2 Delivery O2 Flow Rate FiO2 09/29/16 18:00 97.3 75 16 145/70 Current Medications Current Medications Medications (Trade) Dose Ordered Sig/Mike Route PRN Reason Start Time Stop Time Status Last Admin Dose Admin Acetaminophen (Tylenol Tab) 650 mg Q6HP PRN PO HEADACHE or DISCOMFORT 09/24/16 20:15 10/24/16 20:14 09/27/16 15:00 Al Hydrox/Mg Hydrox/Simethicone (Mylanta) 30 ml Q4HP PRN PO HEARTBURN/INDIGESTION 09/24/16 20:15 10/24/16 20:14 Bupropion HCl (Wellbutrin) 75 mg BID PO 09/28/16 08:00 09/28/16 10:03 DC 09/28/16 07:39 Bupropion HCl (Wellbutrin) 75 mg BID PO 09/28/16 21:00 09/28/16 21:00 DC Diphenhydramine HCl (Benadryl) 50 mg Q4HP PRN PO ITCHING 09/28/16 19:30 10/28/16 19:29 09/28/16 20:22 Home Med (Med Rec Complete!) ASDIRECTED XX 09/24/16 21:00 09/24/16 21:00 DC Magnesium Hydroxide (Milk Of Magnesia) 30 ml DAILYPRN PRN PO CONSTIPATION 09/24/16 20:15 10/24/16 20:14 Nicotine (Nicoderm Cq 21mg) 1 patch DAILY TD 09/25/16 09:00 09/25/16 09:00 DC Quetiapine Fumarate (SEROquel) 100 mg QHS PO 09/27/16 21:00 09/28/16 19:25 DC 09/27/16 21:23 Sertraline HCl (Zoloft) 50 mg DAILY PO 09/25/16 09:00 09/27/16 20:31 DC 09/27/16 08:43 Trazodone HCl (Desyrel) 50 mg QHSP PRN PO INSOMNIA 09/24/16 20:15 09/27/16 20:31 DC 09/25/16 21:07 Allergies Coded Allergies: Penicillins (Verified Allergy, Intermediate, HIVES, 11/29/12) Penicillins Cross Reactors (Verified Allergy, Intermediate, HIVES, 11/29/12) PETER DANIELLE MD Sep 29, 2016 22:53
[2016-09-29] MEDS: DIVALPROEX 250 MG TAB PO SCH (23:01)
[2016-09-30 06:43] VITALS: BP 141/68
[2016-09-30] MEDS: VENLAFAXINE **XR** 75MG CAPSULE PO SCH (08:26)
--- NOTE | 2016-09-30 11:59 | IPNPDOC ---
[facility] Progress Note Progress Note DATE OF SERVICE: 09/28/16 Subjective: Patient reports his mood as "pretty good" today. Patient reports applying and hopes to be admitted prior to discharge is his focus. He reports fair appetite. He reports fair sleep last night. Patient reports ongoing cravings, triggered by thoughts of his mother and not reaching his potential in life. Patient is med compliance and denies s/e's. Patient denies SI/HI and AH/VH. Objective: VITAL SIGNS: See below. NEW TEST RESULTS: None CURRENT MEDICATIONS: See below. MENTAL STATUS EXAMINATION: Patient is a 41-year-old male who appears stated age, calm and cooperative, in no acute distress Speech: Is regular rate and rhythm, spontaneous Thought processes: Linear, Goal directed. Thought content: focused on admission into an inpt [facility] Description of abnormal or psychotic thoughts: No perceptual issues noted or reported. Judgment: fair. Insight: fair Orientation to time, place and person. Recent and remote memory: Intact. Immediate short-term and long-term memory is: intact. Attention span and concentration: fair. Language: Normal. Fund of knowledge: good. Mood: Euthymic Affect: broad Assessment: PTSD Amphetamine use d/o, severe Cannabis use d/o Plan: ----- - Continue Venlafaxine 75 mg by mouth daily for PTSD symptoms. - Continue Depakote 250mg po BID for PTSD mood/anger symptoms. TIME SPENT: [30] minutes. Vital Signs Vital Signs Date Time Temp Pulse Resp B/P Pulse Ox O2 Delivery O2 Flow Rate FiO2 09/30/16 06:43 96.3 75 16 141/68 Current Medications Current Medications Medications (Trade) Dose Ordered Sig/Mike Route PRN Reason Start Time Stop Time Status Last Admin Dose Admin Acetaminophen (Tylenol Tab) 650 mg Q6HP PRN PO HEADACHE or DISCOMFORT 09/24/16 20:15 10/24/16 20:14 09/27/16 15:00 Al Hydrox/Mg Hydrox/Simethicone (Mylanta) 30 ml Q4HP PRN PO HEARTBURN/INDIGESTION 09/24/16 20:15 10/24/16 20:14 Bupropion HCl (Wellbutrin) 75 mg BID PO 09/28/16 08:00 09/28/16 10:03 DC 09/28/16 07:39 Bupropion HCl (Wellbutrin) 75 mg BID PO 09/28/16 21:00 09/28/16 21:00 DC Diphenhydramine HCl (Benadryl) 50 mg Q4HP PRN PO ITCHING 09/28/16 19:30 10/28/16 19:29 09/28/16 20:22 Divalproex Sodium (Depakote) 250 mg QHS PO 09/29/16 21:00 10/29/16 20:59 09/29/16 23:01 Home Med (Med Rec Complete!) ASDIRECTED XX 09/24/16 21:00 09/24/16 21:00 DC Magnesium Hydroxide (Milk Of Magnesia) 30 ml DAILYPRN PRN PO CONSTIPATION 09/24/16 20:15 10/24/16 20:14 Nicotine (Nicoderm Cq 21mg) 1 patch DAILY TD 09/25/16 09:00 09/25/16 09:00 DC Quetiapine Fumarate (SEROquel) 100 mg QHS PO 09/27/16 21:00 09/28/16 19:25 DC 09/27/16 21:23 Sertraline HCl (Zoloft) 50 mg DAILY PO 09/25/16 09:00 09/27/16 20:31 DC 09/27/16 08:43 Trazodone HCl (Desyrel) 50 mg QHSP PRN PO INSOMNIA 09/24/16 20:15 09/27/16 20:31 DC 09/25/16 21:07 Venlafaxine HCl (Effexor Xr) 75 mg DAILY PO 09/30/16 09:00 10/30/16 08:59 09/30/16 08:26 Allergies Coded Allergies: Penicillins (Verified Allergy, Intermediate, HIVES, 413) Penicillins Cross Reactors (Verified Allergy, Intermediate, HIVES, 11/29/13) PETER DANIELLE MD Sep 30, 2016 11:59 Allergies Coded Allergies: Penicillins (Verified Allergy, Intermediate, HIVES, /13) Penicillins Cross Reactors (Verified Allergy, Intermediate, HIVES, 13) PETER DANIELLE MD Sep 30, 2016 11:59
--- NOTE | 2016-09-30 11:59 | IPNPDOC ---
[facility] Progress Note Progress Note DATE OF SERVICE: 09/29/16 Subjective: Patient reports his mood as "good" today. Patient reports improving mood, some anxiety today. Patient reports he is apprehensive about calling his mom, afraid she will drop his mood. Patient wants to inform her of his application to inpatient rehab programs. He reports no other issues. Patient is more social with peers, visible more in the dayroom. He reports fair appetite. He reports fair sleep last night. Patient reports ongoing cravings. Patient is med compliance and denies s/e's. Patient denies SI/ HI and AH/VH. Objective: VITAL SIGNS: See below. NEW TEST RESULTS: None CURRENT MEDICATIONS: See below. MENTAL STATUS EXAMINATION: Patient is a 41-year-old male who appears stated age, calm and cooperative, in no acute distress Speech: Is regular rate and rhythm, spontaneous Thought processes: Linear, Goal directed. Thought content: apprehensive about calling his mom, afraid she will drop his mood Description of abnormal or psychotic thoughts: No perceptual issues noted or reported. Judgment: fair. Insight: fair Orientation to time, place and person. Recent and remote memory: Intact. Immediate short-term and long-term memory is: intact. Attention span and concentration: fair. Language: Normal. Fund of knowledge: good. Mood: Euthymic Affect: broad Assessment: PTSD Amphetamine use d/o, severe Cannabis use d/o Plan: ----- - Continue Venlafaxine 75 mg by mouth daily for PTSD symptoms. - Continue Depakote 250mg po BID for PTSD mood/anger symptoms. TIME SPENT: 30 minutes. Vital Signs Vital Signs Date Time Temp Pulse Resp B/P Pulse Ox O2 Delivery O2 Flow Rate FiO2 09/30/16 06:43 96.3 75 16 141/68 Current Medications Current Medications Medications (Trade) Dose Ordered Sig/Mike Route PRN Reason Start Time Stop Time Status Last Admin Dose Admin Acetaminophen (Tylenol Tab) 650 mg Q6HP PRN PO HEADACHE or DISCOMFORT 09/24/16 20:15 10/24/16 20:14 09/27/16 15:00 Al Hydrox/Mg Hydrox/Simethicone (Mylanta) 30 ml Q4HP PRN PO HEARTBURN/INDIGESTION 09/24/16 20:15 10/24/16 20:14 Bupropion HCl (Wellbutrin) 75 mg BID PO 09/28/16 08:00 09/28/16 10:03 DC 09/28/16 07:39 Bupropion HCl (Wellbutrin) 75 mg BID PO 09/28/16 21:00 09/28/16 21:00 DC Diphenhydramine HCl (Benadryl) 50 mg Q4HP PRN PO ITCHING 09/28/16 19:30 10/28/16 19:29 09/28/16 20:22 Divalproex Sodium (Depakote) 250 mg QHS PO 09/29/16 21:00 10/29/16 20:59 09/29/16 23:01 Home Med (Med Rec Complete!) ASDIRECTED XX 09/24/16 21:00 09/24/16 21:00 DC Magnesium Hydroxide (Milk Of Magnesia) 30 ml DAILYPRN PRN PO CONSTIPATION 09/24/16 20:15 10/24/16 20:14 Nicotine (Nicoderm Cq 21mg) 1 patch DAILY TD 09/25/16 09:00 09/25/16 09:00 DC Quetiapine Fumarate (SEROquel) 100 mg QHS PO 09/27/16 21:00 09/28/16 19:25 DC 09/27/16 21:23 Sertraline HCl (Zoloft) 50 mg DAILY PO 09/25/16 09:00 09/27/16 20:31 DC 09/27/16 08:43 Trazodone HCl (Desyrel) 50 mg QHSP PRN PO INSOMNIA 09/24/16 20:15 09/27/16 20:31 DC 09/25/16 21:07 Venlafaxine HCl (Effexor Xr) 75 mg DAILY PO 09/30/16 09:00 10/30/16 08:59 09/30/16 08:26 Allergies Coded Allergies: Penicillins (Verified Allergy, Intermediate, HIVES, 11/29/12) Penicillins Cross Reactors (Verified Allergy, Intermediate, HIVES, 11/29/12) PETER DANIELLE MD Sep 30, 2016 11:59 Sertraline HCl (Zoloft) 50 mg DAILY PO 09/25/16 09:00 09/27/16 20:31 DC 09/27/16 08:43 Trazodone HCl (Desyrel) 50 mg QHSP PRN PO INSOMNIA 09/24/16 20:15 09/27/16 20:31 DC 09/25/16 21:07 Venlafaxine HCl (Effexor Xr) 75 mg DAILY PO 09/30/16 09:00 10/30/16 08:59 09/30/16 08:26 Allergies Coded Allergies: Penicillins (Verified Allergy, Intermediate, HIVES, 11/29/12) Penicillins Cross Reactors (Verified Allergy, Intermediate, HIVES, 11/29/12) PETER DANIELLE MD Sep 30, 2016 11:59
--- NOTE | 2016-09-30 12:00 | IPNPDOC ---
[facility] Progress Note Progress Note DATE OF SERVICE: 09/30/16 Subjective: Patient reports his mood as "pretty good" today. Patient reports much improved mood and anxiety today. Patient reports he will likely discharge to [facility] inpatient [facility] on . Patient reports being happy with insights / coping skills gained from groups. Patient continues to be more social with peers, visible more in the dayroom. He reports fair appetite. He reports fair sleep last night. Patient reports ongoing cravings. Patient is med compliance and denies s/e's. Patient denies SI/HI and AH/VH. Objective: VITAL SIGNS: See below. NEW TEST RESULTS: None CURRENT MEDICATIONS: See below. MENTAL STATUS EXAMINATION: Patient is a 41-year-old male who appears stated age, calm and cooperative, in no acute distress Speech: Is regular rate and rhythm, spontaneous Thought processes: Linear, Goal directed. Thought content: happy with insights / coping skills gained from groups Description of abnormal or psychotic thoughts: No perceptual issues noted or reported. Judgment: fair. Insight: fair Orientation to time, place and person. Recent and remote memory: Intact. Immediate short-term and long-term memory is: intact. Attention span and concentration: fair. Language: Normal. Fund of knowledge: good. Mood: Euthymic Affect: broad Assessment: PTSD Amphetamine use d/o, severe Cannabis use d/o Plan: ----- - Continue Venlafaxine 75 mg by mouth daily for PTSD symptoms. - Continue Depakote 250mg po BID for PTSD mood/anger symptoms. - Observe patient over the weekend at current med doses as patient displaying benefit to meds. Estimated date of discharge: Monday10/04/16 TIME SPENT: 30 minutes. Vital Signs Vital Signs Date Time Temp Pulse Resp B/P Pulse Ox O2 Delivery O2 Flow Rate FiO2 09/30/16 06:43 96.3 75 16 141/68 Current Medications Current Medications Medications (Trade) Dose Ordered Sig/Mike Route PRN Reason Start Time Stop Time Status Last Admin Dose Admin Acetaminophen (Tylenol Tab) 650 mg Q6HP PRN PO HEADACHE or DISCOMFORT 09/24/16 20:15 10/24/16 20:14 09/27/16 15:00 Al Hydrox/Mg Hydrox/Simethicone (Mylanta) 30 ml Q4HP PRN PO HEARTBURN/INDIGESTION 09/24/16 20:15 10/24/16 20:14 Bupropion HCl (Wellbutrin) 75 mg BID PO 09/28/16 08:00 09/28/16 10:03 DC 09/28/16 07:39 Bupropion HCl (Wellbutrin) 75 mg BID PO 09/28/16 21:00 09/28/16 21:00 DC Diphenhydramine HCl (Benadryl) 50 mg Q4HP PRN PO ITCHING 09/28/16 19:30 10/28/16 19:29 09/28/16 20:22 Divalproex Sodium (Depakote) 250 mg QHS PO 09/29/16 21:00 10/29/16 20:59 09/29/16 23:01 Home Med (Med Rec Complete!) ASDIRECTED XX 09/24/16 21:00 09/24/16 21:00 DC Magnesium Hydroxide (Milk Of Magnesia) 30 ml DAILYPRN PRN PO CONSTIPATION 09/24/16 20:15 10/24/16 20:14 Nicotine (Nicoderm Cq 21mg) 1 patch DAILY TD 09/25/16 09:00 09/25/16 09:00 DC Quetiapine Fumarate (SEROquel) 100 mg QHS PO 09/27/16 21:00 09/28/16 19:25 DC 09/27/16 21:23 Sertraline HCl (Zoloft) 50 mg DAILY PO 09/25/16 09:00 09/27/16 20:31 DC 09/27/16 08:43 Trazodone HCl (Desyrel) 50 mg QHSP PRN PO INSOMNIA 09/24/16 20:15 09/27/16 20:31 DC 09/25/16 21:07 Venlafaxine HCl (Effexor Xr) 75 mg DAILY PO 09/30/16 09:00 10/30/16 08:59 09/30/16 08:26 Allergies Coded Allergies: Penicillins (Verified Allergy, Intermediate, HIVES, 11/29/12) Penicillins Cross Reactors (Verified Allergy, Intermediate, HIVES, 11/29/12) PETER DANIELLE MD Sep 30, 2016 12:00
[2016-09-30 18:00] VITALS: BP 145/93
[2016-09-30] MEDS: DIVALPROEX 250 MG TAB PO SCH (20:17)
[2016-10-01 06:39] VITALS: BP 121/62
[2016-10-01] MEDS: VENLAFAXINE **XR** 75MG CAPSULE PO SCH (08:26)
[2016-10-01 18:00] VITALS: BP 173/77
[2016-10-01] MEDS: DIVALPROEX 250 MG TAB PO SCH (20:03)
[2016-10-02 06:23] VITALS: BP 122/67
[2016-10-02] MEDS: VENLAFAXINE **XR** 75MG CAPSULE PO SCH (08:27)
[2016-10-02 18:00] VITALS: BP 150/79
[2016-10-02] MEDS: DIVALPROEX 250 MG TAB PO SCH (20:39)
[2016-10-03 06:30] VITALS: BP 139/67
[2016-10-03] MEDS: VENLAFAXINE **XR** 75MG CAPSULE PO SCH (08:19)
--- NOTE | 2016-10-03 16:10 | IPNPDOC ---
[facility] Progress Note Progress Note DATE OF SERVICE: 10/03/16 Subjective: Patient reports his mood as "real good" today. Patient is full in affect and smiles at times during the interview. Narcisa reports being anxious about new living arrangements and new set of peers as patient will discharge and be admitted to an inpatient [facility] tomorrow. He reports no other concerns. Patient reports fair appetite. He reports fair sleep last night. Patient reports ongoing cravings. Patient is med compliance and denies s/e's. Patient denies SI/HI and AH/VH. Objective: VITAL SIGNS: See below. NEW TEST RESULTS: None CURRENT MEDICATIONS: See below. MENTAL STATUS EXAMINATION: Patient is a 41-year-old male who appears stated age, calm and cooperative, in no acute distress Speech: Is regular rate and rhythm, spontaneous Thought processes: Linear, Goal directed. Thought content: anxious about new living arrangements and new set of peers as patient will discharge and be admitted to and inpatient [facility]. Description of abnormal or psychotic thoughts: No perceptual issues noted or reported. Judgment: fair. Insight: fair Orientation to time, place and person. Recent and remote memory: Intact. Immediate short-term and long-term memory is: intact. Attention span and concentration: fair. Language: Normal. Fund of knowledge: good. Mood: Euthymic Affect: full Assessment: PTSD Amphetamine use d/o, severe Cannabis use d/o Plan: ----- - Continue Venlafaxine 75 mg by mouth daily for PTSD symptoms. - Increase Depakote from 250mg to 500mg po QHS for PTSD mood/anger symptoms. Estimated date of discharge: Monday10/04/16 TIME SPENT: 30 minutes. Vital Signs Vital Signs Date Time Temp Pulse Resp B/P Pulse Ox O2 Delivery O2 Flow Rate FiO2 10/03/16 06:30 97.4 61 18 139/67 Current Medications Current Medications Medications (Trade) Dose Ordered Sig/Mike Route PRN Reason Start Time Stop Time Status Last Admin Dose Admin Acetaminophen (Tylenol Tab) 650 mg Q6HP PRN PO HEADACHE or DISCOMFORT 09/24/16 20:15 10/24/16 20:14 09/27/16 15:00 Al Hydrox/Mg Hydrox/Simethicone (Mylanta) 30 ml Q4HP PRN PO HEARTBURN/INDIGESTION 09/24/16 20:15 10/24/16 20:14 Bupropion HCl (Wellbutrin) 75 mg BID PO 09/28/16 08:00 09/28/16 10:03 DC 09/28/16 07:39 Bupropion HCl (Wellbutrin) 75 mg BID PO 09/28/16 21:00 09/28/16 21:00 DC Diphenhydramine HCl (Benadryl) 50 mg Q4HP PRN PO ITCHING 09/28/16 19:30 10/28/16 19:29 09/28/16 20:22 Divalproex Sodium (Depakote) 250 mg QHS PO 09/29/16 21:00 10/29/16 20:59 10/02/16 20:39 Home Med (Med Rec Complete!) ASDIRECTED XX 09/24/16 21:00 09/24/16 21:00 DC Magnesium Hydroxide (Milk Of Magnesia) 30 ml DAILYPRN PRN PO CONSTIPATION 09/24/16 20:15 10/24/16 20:14 Nicotine (Nicoderm Cq 21mg) 1 patch DAILY TD 09/25/16 09:00 09/25/16 09:00 DC Quetiapine Fumarate (SEROquel) 100 mg QHS PO 09/27/16 21:00 09/28/16 19:25 DC 09/27/16 21:23 Sertraline HCl (Zoloft) 50 mg DAILY PO 09/25/16 09:00 09/27/16 20:31 DC 09/27/16 08:43 Trazodone HCl (Desyrel) 50 mg QHSP PRN PO INSOMNIA 09/24/16 20:15 09/27/16 20:31 DC 09/25/16 21:07 Venlafaxine HCl (Effexor Xr) 75 mg DAILY PO 09/30/16 09:00 10/30/16 08:59 10/03/16 08:19 Allergies Coded Allergies: Penicillins (Verified Allergy, Intermediate, HIVES, 11/29/12) Penicillins Cross Reactors (Verified Allergy, Intermediate, HIVES, 11/29/12) PETER DANIELLE MD Oct 03, 2016 16:09
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
[2016-10-03 18:15] VITALS: BP 127/60
[2016-10-03] MEDS ORDERED: DIVALPROEX 500 MG TAB PO SCH (21:00)
[2016-10-04 06:23] VITALS: BP 121/61
[2016-10-04] MEDS ORDERED: DEPA1TAB3 PO (07:45)
[2016-10-04] MEDS ORDERED: EFFE75CA75 PO (07:45)
[2016-10-04] MEDS: VENLAFAXINE **XR** 75MG CAPSULE PO SCH (08:19)
== END 2016-10-04 08:55 | DRG 755 ==
LOC: M ED 17:18 → M PSY 20:35
PROVIDERS: ADMIT Psychiatry & Neurology Psychiatry; ATTEND Psychiatry & Neurology Psychiatry
DX: F43.10 Post-traumatic stress disorder, unspecified (principal); F17.210 Nicotine dependence, cigarettes, uncomplicated; F15.90 Other stimulant use, unspecified, uncomplicated; F12.90 Cannabis use, unspecified, uncomplicated; Z88.0 Allergy status to penicillin

== ENCOUNTER 2017-01-12 03:31 | Inpatient (IN) | payer OTHER ==
[~2017-01-12] VITALS: Ht 188 cm; Wt 89.8 kg
[~2017-01-12 03:31] MED LIST changes: +DEPA1TAB3 PO; +EFFE75CA75 PO
[2017-01-12 04:11] LABS: MEAN CORPUSCULAR HEMOGLOBIN 30.1 pg (27.0-33.0); MEAN CORPUSCULAR HGB CONC 33.8 g/dl (32.0-36.5); RED CELL DISTRIBUTION WIDTH 12.9 % (11.5-14.5); WHITE BLOOD COUNT 7.7 K/mm3 (4.0-10.0)
[2017-01-12 04:30] LABS: METHADONE URINE NEGATIVE (NEGATIVE)
[2017-01-12 04:39] LABS: ALBUMIN 4.3 GM/DL (3.2-5.2); ALKALINE PHOSPHATASE 55 U/L (45-117); ALT/SGPT 24 U/L (12-78); ANION GAP 11 MEQ/L (8-16); AST/SGOT 15 U/L (15-37); BILIRUBIN,DIRECT < 0.1 MG/DL (0.0-0.2); BILIRUBIN,TOTAL 0.2 MG/DL (0.2-1.0); BLOOD UREA NITROGEN 14 MG/DL (7-18); CALCIUM LEVEL 8.6 MG/DL (8.5-10.1); CARBON DIOXIDE LEVEL 22 MEQ/L (21-32); CHLORIDE LEVEL 111 MEQ/L (98-107); CREATININE FOR GFR 1.18 MG/DL (0.70-1.30); GLOMERULAR FILTRATION RATE > 60.0 (>60); GLUCOSE, FASTING 82 MG/DL (70-105); POTASSIUM SERUM 3.9 MEQ/L (3.5-5.1); SODIUM LEVEL 144 MEQ/L (136-145); TOTAL PROTEIN 7.6 GM/DL (6.4-8.2)
[2017-01-12 16:48] VITALS: BP 135/70
[2017-01-12] MEDS ORDERED: ACETAMINOPHEN TAB 650MG DOSE (2X325MG) PO PRN (18:15)
[2017-01-12] MEDS ORDERED: MOM 30ML SUSPENSION UDC PO PRN (18:15)
[2017-01-12] MEDS ORDERED: MAALOX 30 ML SUSP *UDC PO PRN (18:15)
[2017-01-12] MEDS ORDERED: OLANZapine ORAL DISINTEGRATING TAB 5MG PO PRN (18:15)
[2017-01-12] MEDS ORDERED: zolPIDEM TARTRATE 10MG TAB PO ONE (18:15)
[2017-01-13 06:27] VITALS: BP 121/65
--- NOTE | 2017-01-13 09:37 | HPEPDOC ---
Medical History and Physical Date of Admission January 12, 2017 at 12:38 History and Physical PCP: None ATTENDING: Dr. Angelito Rodriguez HPI: 41yoM admitted to [facility] for other specified depressive disorder, being medically examined today. No acute medical complaints today. Denies any fevers, chills, weakness, fatigue, RIOS, CP, SOB, cough, palpitations, abdominal pain, N/V /D or changes in bowel or bladder habits. PMHx: Anxiety Depression Cervical DDD Substance use PSHX: Left eye foreign body SOCHX: Resides in: [facility] Marital Status: Single Kids: 2 Employment: Unemployed Tobacco use: Denies ETOH: Denies Illicit Drugs: Methamphetamine, states he last used 08/12. Attended rehabilitation at [facility]. IV Drug Use: Methamphetamine Tattoos done unprofessionally: Denies FAMHX: Mother: Alive, well age secondary to Father: Alive, well Siblings: Alive, well Children: Alive, well Unexpected deaths due to medical reasons: None. ROS: As noted in HPI, otherwise 11pt ROS of systems reviewed and unremarkable. PE: GEN: 41yoM, appears stated age. Well-nourished, well developed. No acute distress. Alert and oriented x 3. Flat affect, avoids answering questions, avoids eye contact. HEENT: Normocephalic, atraumatic. Pupils are equal, round, and reactive to light. Extraocular movements are intact. No nystagmus appreciated. Sclera are nonicteric. Conjunctiva without injection. Nose midline. Nasal turbinates without bogginess. EACs both patent BL. TMs both visualized and toussaint with good cone of light, no bulging or erythema. No facial asymmetry. Moist mucous membranes. Dentition fair. Pharynx pink and moist, no cobblestoning. Neck supple , trachea midline. No lymphadenopathy or thyromegaly appreciated. CHEST: Regular rate and rhythm, +S1, +S2 LUNGS: Clear to auscultation bilaterally. No wheezes, rales, or rhonchi. Breathing appears symmetric and easy. Patient is speaking in full sentences. No accessory muscle use. ABD: Round, soft, non-tender, non-distended. +Bowel sounds throughout. No rebound or guarding. No costovertebral angle tenderness. EXT: Pulses 2+ bilaterally dorsalis pedis and radial. No lower extremity edema appreciated. SKIN: [place], dry, warm. Capillary refill <2sec. No rashes. NEURO: Alert and oriented x 3. Cranial nerves III-XII are intact. No focal deficits appreciated. EKG: Pending. A&P: 41yoM admitted to [facility] for other specified depressive disorder 1. Psych. Plan per Psychiatry. Obtain baseline EKG to assure the safety of psychiatric medications as they can prolong the QT interval. 2. History of cervical DDD. Tylenol as needed. Patient denies any pain at this time. 3. History of IVDU. Patient declines HIV/hepatitis screening stating it was completed at rehabilitation earlier this year. Patient states this testing was negative. 4. Follow up. No Primary Care Provider. Will attempt to establish PCP on discharge. 5. Substance use. Per psychiatry. 6. Staff member Jeison present throughout exam. Vital Signs Vital Signs Date Time Temp Pulse Resp B/P (MAP) Pulse Ox O2 Delivery O2 Flow Rate FiO2 01/13/17 06:27 97.6 56 18 121/65 (83) 01/12/17 16:48 96 Room Air Laboratory Data Labs 24H Item Value Date Time White Blood Count 7.7 K/mm3 01/12/17357 Red Blood Count 5.27 M/mm3 01/12/17357 Hemoglobin 15.9 g/dl 01/12/17357 Hematocrit 46.9 % 01/12/17357 Mean Corpuscular Volume 89.0 fl 01/12/17357 Mean Corpuscular Hemoglobin 30.1 pg 01/12/17357 Mean Corpuscular Hemoglobin Concent 33.8 g/dl 01/12/17357 Red Cell Distribution Width 12.9 % 01/12/17357 Platelet Count 369 k/mm3 01/12/17357 Sodium Level 144 MEQ/L 01/12/17357 Potassium Level 3.9 MEQ/L 01/12/17357 Chloride Level 111 MEQ/L H 01/12/17357 Carbon Dioxide Level 22 MEQ/L 01/12/17357 Anion Gap 11 MEQ/L 01/12/17357 Blood Urea Nitrogen 14 MG/DL 01/12/17357 Creatinine 1.18 MG/DL 01/12/17357 Glomerular Filtration Rate > 60.0 01/12/17357 Fasting Glucose 82 MG/DL 01/12/17357 Calcium Level 8.6 MG/DL 01/12/17357 Total Bilirubin 0.2 MG/DL 01/12/17357 Direct Bilirubin < 0.1 MG/DL 01/12/17357 Aspartate Amino Transf (AST/SGOT) 15 U/L 01/12/17357 Alanine Aminotransferase (ALT/SGPT) 24 U/L 01/12/17357 Alkaline Phosphatase 55 U/L 01/12/17357 Total Protein 7.6 GM/DL 01/12/17357 Albumin 4.3 GM/DL 01/12/17357 Albumin/Globulin Ratio 1.30 01/12/17357 Thyroid Stimulating Hormone (TSH) 2.770 uIU/ML 01/12/17357 Salicylates Level < 1.7 MG/DL L 01/12/17357 Urine Opiates Screen NEGATIVE 01/12/17399 Urine Methadone Screen NEGATIVE 01/12/17399 Acetaminophen Level < 2.0 UG/ML L 01/12/17357 Urine Barbiturates Screen NEGATIVE 01/12/17 0400 Urine Phencyclidine Screen NEGATIVE 01/12/17399 Urine Amphetamines Screen NEGATIVE 01/12/17399 Urine Benzodiazepines Screen NEGATIVE 01/12/17399 Urine Cocaine Metabolite Screen NEGATIVE 01/12/17399 Urine Cannabinoids Screen NEGATIVE 01/12/17399 Ethyl Alcohol Level 0.179 % H 01/12/17357 Home Medications No Active Prescriptions or Reported Meds Allergies Coded Allergies: Penicillins (Verified Allergy, Intermediate, HIVES, 11/29/12) Penicillins Cross Reactors (Verified Allergy, Intermediate, HIVES, 11/29/12) Quetiapine (Verified Adverse Reaction, Intermediate, Insomnia and restless legs, 01/12/17) Trazodone (Verified Adverse Reaction, Intermediate, Insomnia and restless legs, 01/12/17) Pat Yu January 13, 2017 09:37
[2017-01-13] MEDS ORDERED: VENLAFAXINE **XR** 37.5 MG CAPSULE PO ONE (12:30)
[2017-01-13] MEDS: hydrOXYzine 50 MG TAB PO PRN (13:20)
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
--- NOTE | 2017-01-13 17:12 | ECGEPIP ---
Stationary ECG Study [facility] Test Date: 2017-01-13 Pat Name: JANAE QUINN Department: Room: [place] [address] Gender: M Telecom Analyst: BARBARA : 1975 Requested By: Pat Yu Order Number: [id number] Reading MD: Lynette Rainey Measurements Intervals [place] Rate: 77 P: 62 DE: 159 QRS: 79 QRSD: 105 T: 67 QT: 377 QTc: 427 Interpretive Statements SINUS RHYTHM WITH SINUS ARRHYTHMIA POSSIBLE LEFT ATRIAL ENLARGEMENT RATE SLOWER MORE MARKED EARLY REPOLAR CHANGES Electronically Signed On 01-13-2017 17:11:57 EDT by Lynette Rainey
[2017-01-13 18:02] VITALS: BP 138/65
[2017-01-13] MEDS ORDERED: DIVALPROEX 250MG *ER* TAB PO SCH (21:00)
[2017-01-13] MEDS ORDERED: zolPIDEM TARTRATE 10MG TAB PO ONE (21:30)
[2017-01-14 06:31] VITALS: BP 131/86
[2017-01-14] MEDS: hydrOXYzine 50 MG TAB PO PRN ×2 (08:02→22:01)
[2017-01-14] MEDS: VENLAFAXINE **XR** 75MG CAPSULE PO SCH (08:02)
[2017-01-14] MEDS ORDERED: LIDOCAINE 5% (LIDODERM) PATCH TD PRN (12:30)
[2017-01-14] MEDS ORDERED: IBUPROFEN 600 MG TAB PO PRN (12:30)
[2017-01-14 18:06] VITALS: BP 134/72
[2017-01-14] MEDS: **NOTE PATIENT COMMENT** MISC XX SCH (21:07)
[2017-01-14] MEDS: DIVALPROEX 500MG *ER* TAB PO SCH (22:01)
--- NOTE | 2017-01-14 22:32 | MHIPNPDOC ---
[facility] Progress Note Progress Note DATE OF SERVICE: 01/14/17 INTERVAL HISTORY: Medication Side effects: the patient reports no side effects from venlafaxine or Depakote Behavior/events: has been reclusive to his room sleeping the majority of the day. It was seen later in the day doing arts and crafts playing a guitar. Group Attendance: has attended groups Psychiatric Symptoms: reports that his sleeping problems continue as well as his depression and anxiety. He describes it is improving since the restart of his venlafaxine and Depakote. Describes that he had stopped taking it as an outpatient as he felt "better". He was able to identify that this was the treatment being effective and that he perceived incorrectly. VITAL SIGNS: See below. NEW TEST RESULTS: See below CURRENT MEDICATIONS: See below. MENTAL STATUS EXAMINATION: General: disheveled Speech: sparse Thought processes: coherent Thought content: reserved Abstract reasoning, and computation: intact Description of associations: intact Description of abnormal or psychotic thoughts:Denies any suicidal or homicidal ideation. Denies any auditory or visual hallucinations. Does not appear to be responding to internal stimuli. Does not appear to be endorsing any bizarre or paranoid ideation. Judgment: limited Insight: limited Orientation: alert and oriented times 3 Recent and remote memory: intact Attention span and concentration: intact Fund of knowledge: adequate Mood: "fine" Affect: blunted DIAGNOSES: 1. Unspecified depressive disorder. 2. Poly substance use disorder, severe 3. Unspecified anxiety disorder. ASSESSMENT: improving MANAGEMENT PLAN: Medications: continued venlafaxine and Depakote current dosages. Liver function tests are normal Psychotherapy: encourage group Social: none Misc: none Disposition: The patient will need of further inpatient stay to address medication restart severe depressive symptoms. TIME SPENT: 15 minutes. Vital Signs Vital Signs Date Time Temp Pulse Resp B/P (MAP) Pulse Ox O2 Delivery O2 Flow Rate FiO2 01/14/17 18:06 98.3 72 18 134/72 (92) 01/12/17 16:48 96 Room Air Current Medications Current Medications Acetaminophen (Tylenol Tab) 650 mg Q6HP PRN PO HEADACHE or DISCOMFORT Last administered on 01/13/17t 20:15; Start 01/12/17 at 18:15; Stop 02/11/17 at 18:14 Al Hydrox/Mg Hydrox/Simethicone (Mylanta) 30 ml Q4HP PRN PO HEARTBURN/ INDIGESTION; Start 01/12/17 at 18:15; Stop 02/11/17 at 18:14 Divalproex Sodium (Depakote Er) 250 mg QHS PO Last administered on 01/13/17 21 :09; Start 01/13/17 at 21:00; Stop 01/13/17 at 22:00; Status DC Divalproex Sodium (Depakote Er) 500 mg QHS PO Last administered on 01/14/17 22 :01; Start 01/14/17 at 21:00; Stop 02/13/17 at 20:59 Home Med (Med Rec Complete!) ASDIRECTED XX ; Start 01/12/17 at 12:00; Stop at 12:00; Status DC Hydroxyzine HCl (Atarax) 50 mg Q6HP PRN PO ANXIETY/AGITATION Last administered on 01/14/17 22:01; Start 01/13/17 at 12:30; Stop 02/12/17 at 12:29 Ibuprofen (Advil) 600 mg Q8HP PRN PO PAIN; Start 01/14/17 at 12:30; Stop at 12:29 Lidocaine (Lidoderm Patch) 1 patch DAILY PRN TD BACK PAIN Last administered on 01/14/17 16:41; Start 01/14/17 at 12:30; Stop 02/13/17 at 12:29 Magnesium Hydroxide (Milk Of Magnesia) 30 ml DAILYPRN PRN PO CONSTIPATION; Start 01/12/17 at 18:15; Stop 02/11/17 at 18:14 Non-Formulary Medication ( See Comment Field Below ) REMOVE LIDODERM PATCH... DAILY@21 XX Last administered on 01/14/17 21:07; Start 01/14/17 at 21 :00; Stop 02/13/17 at 20:59 Olanzapine (ZyPREXA ZYDIS) 5 mg Q4HP PRN PO ANXIETY; Start 01/12/17 at 18: 15; Stop 01/13/17 at 12:32; Status DC Venlafaxine HCl (Effexor Xr) 75 mg QAM PO Last administered on 01/14/17 08 :02; Start 01/14/17 at 09:00; Stop 02/13/17 at 08:59 Allergies Coded Allergies: Penicillins (Verified Allergy, Intermediate, HIVES, 11/29/12) Penicillins Cross Reactors (Verified Allergy, Intermediate, HIVES, 11/29/12) Quetiapine (Verified Adverse Reaction, Intermediate, Insomnia and restless legs, 01/12/17) Trazodone (Verified Adverse Reaction, Intermediate, Insomnia and restless legs, 01/12/17) GME ATTESTATION My preceptor for this patient encounter was physically present in the building during the encounter and was fully available. As needed, all aspects of the patient interview, examination, medical decision making process, and medical care plan development were reviewed and approved by the preceptor. Preceptor is aware and concurs with the plan as stated in the body of this note and will attest to such by his/her cosignature. JOHN SANCHEZ DO January 14, 2017 22:32
[2017-01-15 06:23] VITALS: BP 142/74
[2017-01-15] MEDS: VENLAFAXINE **XR** 75MG CAPSULE PO SCH (08:12)
[2017-01-15 18:00] VITALS: BP 123/63
[2017-01-15] MEDS: DIVALPROEX 500MG *ER* TAB PO SCH (20:39)
[2017-01-15] MEDS: hydrOXYzine 50 MG TAB PO PRN (20:39)
[2017-01-15] MEDS: **NOTE PATIENT COMMENT** MISC XX SCH (20:40)
[2017-01-16 06:00] VITALS: BP_SYST 115; BP_SYST 118; BP_DIAS 63; BP_DIAS 75
[2017-01-16] MEDS: VENLAFAXINE **XR** 75MG CAPSULE PO SCH (08:07)
--- NOTE | 2017-01-16 08:46 | MHIPNPDOC ---
[facility] Progress Note Progress Note DATE OF SERVICE: 01/16/17 HISTORY: Patient is a 41-year-old male, who presented to the ER after experiencing suicidal ideation with plan to jump in the river. Per ER report, patient went to [facility] of the [place] after consuming alcohol and contemplated ending his life. Patient states he has been admitted for psychiatric treatment to [facility] 3 in the past, was last discharged in August 2016, then attended inpatient substance abuse treatment 30 days, he continued to take his medications for approximately one month after that, then stopped medications due to feeling he no longer needed them. Semaphore Operator met with patient today to assess treatment progress on the inpatient unit. Patient reports current anxiety level of 4/10, depression 5/10, notes he feels "better," denies suicidal and homicidal ideation, denies audiovisual hallucinations, denies urge to engage in self-injurious behavior. Patient indicates medication restart of venlafaxine and Depakote is helping to reduce symptoms of irritability, impulsivity, and mood lability, denies medication side effects and denies need for dosing adjustment. Patient states he struggled with sleep over the weekend but last night took his PRN hydroxyzine for symptoms of anxiety at bedtime, notes medication worked well and also improved his sleep, denies nightmares symptoms, and further denies need for alternative sleep aid. Patient reports improvement in energy level, concentration and focus , and appetite. Patient states his girlfriend visited over the weekend noting visit was "a big relief," states he is uncertain but thinks he may discharge to home with her when prepared. Patient presents with no signs of acute distress at time of interaction. PAST MEDICAL/SURGICAL HISTORY: Cervical DDD and history of left eye foreign body. Patient denies history of seizure or head injury. Labs on admission indicated elevated chloride. UDS EtOH 0.179 01/13/17 EKG sinus rhythm with sinus arrhythmia possible left atrial enlargement rate slower more marked early repolarization changes. Patient is asymptomatic and PA is aware. Repeat LFTs and Depakote level on 01/18/17 MENTAL STATUS EXAMINATION: General appearance: Patient is a 41-year old male, who is less withdrawn and lethargic, appears less disheveled, dressed in hospital clothing, makes fair eye contact, ambulates with steady gait, appears stated age. Speech: Regular rate, rhythm, low volume, coherent, some delay. Thought processes: Linear, logical, goal-directed. Thought content: Rational, logical, no paranoia noted at time of assessment. Abstract reasoning and computation: Appear intact. Description of associations: Intact. Description of abnormal or psychotic thoughts: Denies current suicidal or homicidal ideation, denies auditory or visual hallucinations, does not appear to be responding to internal stimuli, does not endorse bizarre or paranoid ideation, and denies preoccupation with violence or obsessions. Judgment: Limited. Insight: Limited, some improvement noted. Orientation: A and O 3. Recent and remote memory: Appear intact. Attention span and concentration: Adequate. Fund of knowledge: Appears adequate. Mood: "I'm feeling a little better today, I'm hoping my girlfriend let me move back." Patient appears less depressed and less anxious, no mood lability noted Affect: Blunted DIAGNOSES: Unspecified mood disorder, polysubstance use disorder, rule out MDD, rule out bipolar disorder, rule out anxiety disorder, rule out ADHD, rule out PTSD ASSESSMENT: Patient appears to be adjusting to unit, remains isolative to room at times, but is at other times visible, engages selectively with peers and staff, is participating in most unit programming. Patient reports symptoms improvement with restart of Depakote and Effexor, denies medication side effects and is declining dosing adjustment. Patient denies irritability, agitation, impulsivity, and mood lability, further denies symptoms of suicidal or homicidal thinking and verbalizes awareness of how to access supportive services on the unit if needed. The importance of medication compliance was again reviewed with patient who verbalized understanding. Will monitor patient's response to medications and for medication side effects, and will evaluate patient's safety, resolution of suicidal thinking, and discharge readiness. Patient minimizes alcohol abuse, continues to deny need for inpatient or outpatient substance abuse treatment. Patient reiterates today that his discharge destination remains unknown due to patient not knowing if he can return home with girlfriend and not wanting to return home with mother who is reportedly a chronic and excessive alcohol consumer, indicates he may present to [facility] is homeless for assistance. HCR case management and TLS referrals have been initiated, and patient indicates he wants to go to [facility] for outpatient psychotherapy and medication management services. Patient is aware that discharge is tentatively planned for mid to late of this week. MANAGEMENT PLAN: Continue Depakote ER 500 mg po q hs, Effexor XR 75 mg po q am, and hydroxyzine 50 mg Po q 6 hours PRN anxiety/agitation Repeat LFTs and Depakote level on 01/18/17 Maintain safety precautions Patient to attend groups and participate in unit programming to develop coping strategies Engage patient in discharge planning process and arrange meeting with support system to ensure safe discharge planning when appropriate Patient to follow up with PCM upon discharge TIME SPENT: 35 minutes Vital Signs Vital Signs Date Time Temp Pulse Resp B/P (MAP) Pulse Ox O2 Delivery O2 Flow Rate FiO2 01/16/17 06:00 97.9 59 16 118/63 (81) 01/12/17 16:48 96 Room Air Current Medications Current Medications Acetaminophen (Tylenol Tab) 650 mg Q6HP PRN PO HEADACHE or DISCOMFORT Last administered on 01/13/17 20:15; Start 01/12/17 at 18:15; Stop 02/11/17 at 18:14 Al Hydrox/Mg Hydrox/Simethicone (Mylanta) 30 ml Q4HP PRN PO HEARTBURN/ INDIGESTION; Start 01/12/17 at 18:15; Stop 02/11/17 at 18:14 Divalproex Sodium (Depakote Er) 250 mg QHS PO Last administered on 01/13/17 21 :09; Start 01/13/17 at 21:00; Stop 01/13/17 at 22:00; Status DC Divalproex Sodium (Depakote Er) 500 mg QHS PO Last administered on 01/15/17 20 :39; Start 01/14/17 at 21:00; Stop 02/13/17 at 20:59 Home Med (Med Rec Complete!) ASDIRECTED XX ; Start 01/12/17 at 12:00; Stop at 12:00; Status DC Hydroxyzine HCl (Atarax) 50 mg Q6HP PRN PO ANXIETY/AGITATION Last administered on 01/15/17 20:39; Start 01/13/17 at 12:30; Stop 02/12/17 at 12:29 Ibuprofen (Advil) 600 mg Q8HP PRN PO PAIN; Start 01/14/17 at 12:30; Stop at 12:29 Lidocaine (Lidoderm Patch) 1 patch DAILY PRN TD BACK PAIN Last administered on 01/14/17 16:41; Start 01/14/17 at 12:30; Stop 02/13/17 at 12:29 Magnesium Hydroxide (Milk Of Magnesia) 30 ml DAILYPRN PRN PO CONSTIPATION; Start 01/12/17 at 18:15; Stop 02/11/17 at 18:14 Non-Formulary Medication ( See Comment Field Below ) REMOVE LIDODERM PATCH... DAILY@21 XX Last administered on 01/14/17 21:07; Start 01/14/17 at 21 :00; Stop 02/13/17 at 20:59 Olanzapine (ZyPREXA ZYDIS) 5 mg Q4HP PRN PO ANXIETY; Start 01/12/17 at 18: 15; Stop 01/13/17 at 12:32; Status DC Venlafaxine HCl (Effexor Xr) 75 mg QAM PO Last administered on 01/16/17 08 :07; Start 01/14/17 at 09:00; Stop 02/13/17 at 08:59 Allergies Coded Allergies: Penicillins (Verified Allergy, Intermediate, HIVES, 11/29/12) Penicillins Cross Reactors (Verified Allergy, Intermediate, HIVES, 11/29/12) Quetiapine (Verified Adverse Reaction, Intermediate, Insomnia and restless legs, 01/12/17) Trazodone (Verified Adverse Reaction, Intermediate, Insomnia and restless legs, 01/12/17) Eliza Marinelli January 16, 2017 08:46
[2017-01-16 18:00] VITALS: BP 136/68
[2017-01-16] MEDS: **NOTE PATIENT COMMENT** MISC XX SCH (20:52)
[2017-01-16] MEDS: hydrOXYzine 50 MG TAB PO PRN (20:53)
[2017-01-16] MEDS: DIVALPROEX 500MG *ER* TAB PO SCH (20:53)
--- NOTE | 2017-01-16 21:33 | IPN ---
DATE OF VISIT: 01/15/2017 MEDICATION SIDE EFFECTS: The patient reports no side effects from Venlafaxine or Depakote. BEHAVIOR EVENTS: The patient has been isolated in his room, he has not been socializing or interacting much with staff or peers; although he has attended groups. PSYCHIATRIC SYMPTOMS: Her reports that his anxiety and post traumatic stress disorder (PTSD) symptoms have improved although he stills feels depressed but he denies suicidal ideations. He wakes up during the night with a panic attack but he cannot remember dreams. He believes that he is doing better now that he has been taking his venlafaxine and Depakote. He was seen with his upon his request and both of them admitted that he has stopped taking his medications several months ago and he has not taken them for a long time while he decided to stop them, that was in proximity about two months ago. Now that he is taking them he is beginning to feel that he is improving. MENTAL STATUS EXAMINATION: He presented to the interview room dressed in personal clothes, disheveled, with poor eye contact. He does not speak much, only what is necessary but he is not incoherent, he is not tangential and he is not circumstantial. Thought content negative for homicidal ideation, negative for psychotic thoughts and negative for active suicidal thoughts or passive suicidal thoughts. DESCRIPTION OF CONSULTATION: Abstract reasoning and computation intact. DESCRIPTION OF ABNORMAL OR PSYCHOTIC THOUGHTS: Not present. Insight and judgment are poor. ORIENTATION: He is alert and oriented times three. Recent and remote memory is intact. Attention span and concentration intact. Fund of knowledge full. Mood "better." Affect constricted. DIAGNOSES: 1. Unspecified depressive disorder. 2. Polysubstance use disorder severe. 3. Unspecified anxiety disorder. ASSESSMENT: Improving. MANAGEMENT PLAN: Continue venlafaxine and Depakote at the current dosages. Liver function tests are normal but at the end of this week he should be evaluated again. At the end of this week, he should reconsider the next blood draw for liver function tests. PSYCHOTHERAPY : Encourage groups. PLAN: The patient will need to continue to be hospitalized to stabilize him with medications and with psychotherapy. TIME SPENT: 50 minutes.
[2017-01-17 06:44] VITALS: BP 116/58
[2017-01-17] MEDS: VENLAFAXINE **XR** 75MG CAPSULE PO SCH (08:27)
--- NOTE | 2017-01-17 09:18 | MHIPNPDOC ---
[facility] [place] Progress Note DATE OF SERVICE: 01/17/17 HISTORY: Patient is a 41-year-old male, who presented to the ER after experiencing suicidal ideation with plan to jump in the river. Per ER report, patient went to [facility] of the [employer] after consuming alcohol and contemplated ending his life. Patient states he has been admitted for psychiatric treatment to [facility] 3 in the past, was last discharged in August 2016, then attended inpatient substance abuse treatment 30 days, he continued to take his medications for approximately one month after that, then stopped medications due to feeling he no longer needed them. Birth Certificate Clerk met with patient today to assess treatment progress on the inpatient unit. Patient reports current anxiety level of 2/10, depression 2/10, notes he experienced notable improvement symptoms of anxiety and depression, denies suicidal and homicidal ideation, denies audiovisual hallucinations, denies urge to engage in self-injurious behavior. Patient indicates medication restart of venlafaxine and Depakote is "very helpful" in reducing symptoms of irritability , impulsivity, and mood lability, denies medication side effects and denies need for dosing adjustment. Patient reports improvement to sleep with utilization of hydroxyzine hs, denies nightmares symptoms, indicates he no longer has need for alternative sleep aid. Patient reports improvement in energy level, concentration and focus, and appetite. Patient reiterates today he and girlfriend have resolved relationship tension and plan is for him now to discharge back home with her. Patient presents with no signs of acute distress at time of interaction. PAST MEDICAL/SURGICAL HISTORY: Cervical DDD and history of left eye foreign body. Patient denies history of seizure or head injury. Labs on admission indicated elevated chloride. UDS EtOH 0.179 01/13/17 EKG sinus rhythm with sinus arrhythmia possible left atrial enlargement rate slower more marked early repolarization changes. Patient is asymptomatic, clinical consultation sought, patient to follow-up outpatient. Repeat LFTs and Depakote level on 01/18/17 MENTAL STATUS EXAMINATION: General appearance: Patient is a 41-year old male, who is less engageable, presents with adequate hygiene, dressed in hospital clothing, makes adequate eye contact, ambulates with steady gait, appears stated age. Speech: Regular rate, rhythm, normal volume, coherent, spontaneous Thought processes: Linear, logical, goal-directed. Thought content: Rational, logical, no paranoia noted at time of assessment. Abstract reasoning and computation: Appear intact. Description of associations: Intact. Description of abnormal or psychotic thoughts: Denies current suicidal or homicidal ideation, denies auditory or visual hallucinations, does not appear to be responding to internal stimuli, does not endorse bizarre or paranoid ideation, and denies preoccupation with violence or obsessions. Judgment: Adequate, has improved during treatment Insight: Fair, has improved during treatment Orientation: A and O 3. Recent and remote memory: Appear intact. Attention span and concentration: Adequate. Fund of knowledge: Appears adequate. Mood: "I'm feeling better; I'm excited about going home." Patient appears less depressed and less anxious, no mood lability noted Affect: Constricted, brightens at times, congruent with mood DIAGNOSES: Unspecified mood disorder, polysubstance use disorder, rule out MDD, rule out bipolar disorder, rule out anxiety disorder, rule out ADHD, rule out PTSD ASSESSMENT: Patient has adjusted to unit, remains quiet but is visible and engageable, socializes with select peers, attends groups. Patient reports symptoms improvement with restart of Depakote and Effexor, denies medication side effects and is declining dosing adjustment. Patient denies irritability, agitation, impulsivity, and mood lability, further denies symptoms of suicidal or homicidal thinking and verbalizes awareness of how to access supportive services on the unit if needed. The importance of medication compliance was again reviewed with patient who verbalized understanding. Patient today verbalizes some insight into events and behavior which led to current hospitalization, however, continues to decline participation in inpatient or outpatient substance abuse treatment post discharge noting he has completed treatment before. Patient denies he currently has substance abuse problem, reiterates he had been clean and sober since completing rehabilitation until recent relapse on alcohol which he attributes to being around alcoholic mother. Will continue to monitor patient's response to medications and for medication side effects, and will evaluate patient's safety, resolution of suicidal thinking, and discharge readiness. Patient indicates today he and girlfriend have discussed discharge and plan is for patient to discharge to home with girlfriend with whom he was living until recently moving in with mother. Patient remains interested in receiving HCR case management and TLS referral has been completed for outpatient psychotherapy and medication management services. Patient is aware the family meeting has been scheduled for tomorrow in preparation for tentative discharge to home tomorrow. MANAGEMENT PLAN: Continue Depakote ER 500 mg po q hs, Effexor XR 75 mg po q am, and hydroxyzine 50 mg Po q 6 hours PRN anxiety/agitation Repeat LFTs and Depakote level on 01/18/17 Maintain safety precautions Patient to attend groups and participate in unit programming to develop coping strategies Engage patient in discharge planning process and arrange meeting with support system to ensure safe discharge planning when appropriate Patient to follow up with PCM upon discharge TIME SPENT: 35 minutes Vital Signs Vital Signs Date Time Temp Pulse Resp B/P (MAP) Pulse Ox O2 Delivery O2 Flow Rate FiO2 01/17/17 06:44 97.9 56 16 116/58 (77) 01/12/17 16:48 96 Room Air Current Medications Current Medications Acetaminophen (Tylenol Tab) 650 mg Q6HP PRN PO HEADACHE or DISCOMFORT Last administered on 01/13/17 20:15; Start 01/12/17 at 18:15; Stop 02/11/17 at 18:14 Al Hydrox/Mg Hydrox/Simethicone (Mylanta) 30 ml Q4HP PRN PO HEARTBURN/ INDIGESTION; Start 01/12/17 at 18:15; Stop 02/11/17 at 18:14 Divalproex Sodium (Depakote Er) 250 mg QHS PO Last administered on 01/13/17 21 :09; Start 01/13/17 at 21:00; Stop 01/13/17 at 22:00; Status DC Divalproex Sodium (Depakote Er) 500 mg QHS PO Last administered on 01/16/17 20 :53; Start 01/14/17 at 21:00; Stop 02/13/17 at 20:59 Home Med (Med Rec Complete!) ASDIRECTED XX ; Start 01/12/17 at 12:00; Stop at 12:00; Status DC Hydroxyzine HCl (Atarax) 50 mg Q6HP PRN PO ANXIETY/AGITATION Last administered on 01/16/17 20:53; Start 01/13/17 at 12:30; Stop 02/12/17 at 12:29 Ibuprofen (Advil) 600 mg Q8HP PRN PO PAIN; Start 01/14/17 at 12:30; Stop at 12:29 Lidocaine (Lidoderm Patch) 1 patch DAILY PRN TD BACK PAIN Last administered on 01/14/17 16:41; Start 01/14/17 at 12:30; Stop 02/13/17 at 12:29 Magnesium Hydroxide (Milk Of Magnesia) 30 ml DAILYPRN PRN PO CONSTIPATION; Start 01/12/17 at 18:15; Stop 02/11/17 at 18:14 Non-Formulary Medication ( See Comment Field Below ) REMOVE LIDODERM PATCH... DAILY@21 XX Last administered on 01/14/17 21:07; Start 01/14/17 at 21 :00; Stop 02/13/17 at 20:59 Olanzapine (ZyPREXA ZYDIS) 5 mg Q4HP PRN PO ANXIETY; Start 01/12/17 at 18: 15; Stop 01/13/17 at 12:32; Status DC Venlafaxine HCl (Effexor Xr) 75 mg QAM PO Last administered on 01/17/17 08 :27; Start 01/14/17 at 09:00; Stop 02/13/17 at 08:59 Allergies Coded Allergies: Penicillins (Verified Allergy, Intermediate, HIVES, 11/29/12) Penicillins Cross Reactors (Verified Allergy, Intermediate, HIVES, 11/29/12) Quetiapine (Verified Adverse Reaction, Intermediate, Insomnia and restless legs, 01/12/17) Trazodone (Verified Adverse Reaction, Intermediate, Insomnia and restless legs, 01/12/17) Eliza Marinelli January 17, 2017 09:18
[2017-01-17 18:00] VITALS: BP 137/65
[2017-01-17] MEDS: **NOTE PATIENT COMMENT** MISC XX SCH (21:00)
[2017-01-17] MEDS: DIVALPROEX 500MG *ER* TAB PO SCH (21:20)
[2017-01-18 06:40] VITALS: BP 132/58
[2017-01-18 08:13] LABS: ALBUMIN 3.9 GM/DL (3.2-5.2); ALBUMIN/GLOBULIN RATIO 1.3 (1.00-1.93); BILIRUBIN,DIRECT 0.1 MG/DL (0.0-0.2); BILIRUBIN,TOTAL 0.5 MG/DL (0.2-1.0); TOTAL PROTEIN 6.9 GM/DL (6.4-8.2)
[2017-01-18] MEDS: VENLAFAXINE **XR** 75MG CAPSULE PO SCH (08:27)
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
[2017-01-18] MEDS ORDERED: HYDRO50TAB PO (11:30)
[2017-01-18] MEDS ORDERED: DEPA500T2 PO (11:30)
[2017-01-18] MEDS ORDERED: VENL75CA PO (11:30)
== END 2017-01-18 15:15 | disposition home or self-care (01) | DRG 753 ==
LOC: M ED 04:48 → M ED INP 12:38 → M PSY 16:42
PROVIDERS: ADMIT Psychiatry & Neurology Psychiatry; ATTEND Psychiatry & Neurology Psychiatry
DX: F39 Unspecified mood [affective] disorder (principal); F32.9 Major depressive disorder, single episode, unspecified; F31.9 Bipolar disorder, unspecified; F41.9 Anxiety disorder, unspecified; F90.9 Attention-deficit hyperactivity disorder, unspecified type; F43.10 Post-traumatic stress disorder, unspecified; Z88.0 Allergy status to penicillin; Z79.899 Other long term (current) drug therapy; Z88.8 Allergy status to other drugs, medicaments and biological substances; M50.90 Cervical disc disorder, unspecified, unspecified cervical region

== ENCOUNTER 2017-02-03 15:45 | Emergency (ER) | payer OTHER ==
[~2017-02-03] VITALS: Ht 188 cm; Wt 90.7 kg
[~2017-02-03 15:45] MED LIST changes: +DEPA500T2 PO; +HYDRO50TAB PO; +VENL75CA PO
[2017-02-03] MEDS ORDERED: NORCO, ANEXSIA 5/325MG TABLET (HYDROcodone/ACETAMINOPHEN) PO ONE (17:00)
[2017-02-03] MEDS ORDERED: KETOROLAC 60 MG/2 ML VIAL (J1885) IM ONE (17:00)
--- NOTE | 2017-02-03 17:57 | REP ---
Right ribs and PA chest: Comparison is the PA and lateral chest dated 05/20/2012. Right ribs four views: There is no rib fracture or other rib abnormality. PA chest: There is no pneumothorax, hemothorax or pulmonary contusion. Lung restrepo are clear. Cardiac size is normal. The nehemiah, mediastinum, bony thorax unremarkable. No change from the comparison study. Signed by Rashid Inman MD 02/03/2017 05:48 P
[2017-02-03] MEDS ORDERED: NORCOTAB PO (18:04)
[2017-02-03] MEDS ORDERED: NAPR500T2 PO (18:04)
[2017-02-03 18:16] VITALS: BP 137/89
== END 2017-02-03 18:17 | disposition home or self-care (01) ==
LOC: M ED 18:05
DX: S20.211A Contusion of right front wall of thorax, initial encounter (principal); X58.XXXA Exposure to other specified factors, initial encounter; Y92.89 Other specified places as the place of occurrence of the external cause; Y93.83 Activity, rough housing and horseplay; Y99.8 Other external cause status; G89.29 Other chronic pain; M54.9 Dorsalgia, unspecified; F41.9 Anxiety disorder, unspecified; F33.9 Major depressive disorder, recurrent, unspecified; D68.59 Other primary thrombophilia; Z79.899 Other long term (current) drug therapy; Z88.0 Allergy status to penicillin; Z88.8 Allergy status to other drugs, medicaments and biological substances; Z87.891 Personal history of nicotine dependence

== ENCOUNTER 2017-10-31 15:15 | Inpatient (IN) | payer SELFPAY ==
[2017-10-31 16:53] LABS: HEMATOCRIT 50.1 % (42.0-52.0); HEMOGLOBIN 16.9 g/dl (14.0-18.0); MEAN CORPUSCULAR HEMOGLOBIN 29.5 pg (27.0-33.0); MEAN CORPUSCULAR HGB CONC 33.7 g/dl (32.0-36.5); MEAN CORPUSCULAR VOLUME 87.4 fl (80.0-96.0); PLATELET COUNT, AUTOMATED 373 10^3/uL (150-450); RED BLOOD COUNT 5.73 10^6/uL (4.30-6.10); WHITE BLOOD COUNT 11.8 10^3/uL (4.0-10.0)
[2017-10-31 17:11] LABS: ACETAMINOPHEN LEVEL < 2.0 UG/ML (10.0-30.0); ALBUMIN 4.6 GM/DL (3.2-5.2); ALBUMIN/GLOBULIN RATIO 1.39 (1.00-1.93); ALKALINE PHOSPHATASE 50 U/L (45-117); ALT/SGPT 26 U/L (12-78); ANION GAP 9 MEQ/L (8-16); AST/SGOT 20 U/L (7-37); BILIRUBIN,DIRECT 0.1 MG/DL (0.0-0.2); BILIRUBIN,TOTAL 0.6 MG/DL (0.2-1.0); BLOOD UREA NITROGEN 23 MG/DL (7-18); CALCIUM LEVEL 9.7 MG/DL (8.5-10.1); CARBON DIOXIDE LEVEL 26 MEQ/L (21-32); CHLORIDE LEVEL 108 MEQ/L (98-107); CREATININE FOR GFR 1.16 MG/DL (0.70-1.30); ETHYL ALCOHOL (ETHANOL) < 0.003 % (0.000-0.010); GLOMERULAR FILTRATION RATE > 60.0 (>60); GLUCOSE, FASTING 88 MG/DL (70-100); POTASSIUM SERUM 4.2 MEQ/L (3.5-5.1); SALICYLATE LEVEL < 1.7 MG/DL (5.0-30.0); SODIUM LEVEL 143 MEQ/L (136-145); TOTAL PROTEIN 7.9 GM/DL (6.4-8.2)
[2017-10-31 17:15] LABS: AMPHETAMINES LEVEL URINE NEGATIVE (NEGATIVE); BARBITURATES URINE NEGATIVE (NEGATIVE); BENZODIAZEPINES URINE NEGATIVE (NEGATIVE); CANNABINOIDS URINE POSITIVE (NEGATIVE); COCAINE METABOLITE URINE NEGATIVE (NEGATIVE); METHADONE URINE NEGATIVE (NEGATIVE); OPIATES URINE NEGATIVE (NEGATIVE); PHENCYCLIDINE URINE NEGATIVE (NEGATIVE)
[2017-10-31] MEDS ORDERED: MAALOX 30 ML SUSP *UDC PO (18:30)
[2017-10-31] MEDS ORDERED: MOM 30ML SUSPENSION UDC PO (18:30)
[2017-10-31] MEDS ORDERED: traZODone 50 MG TAB PO (18:30)
[2017-10-31] MEDS ORDERED: zolPIDEM TARTRATE 10MG TAB PO (22:00)
[2017-11-01] MEDS ORDERED: hydrOXYzine 50 MG TAB PO (09:45)
[2017-11-01] MEDS: INFLUENZA QUADRIVALENT PF VACCINE 0.5ML SYRINGE (90686) IM (10:24)
[2017-11-01] MEDS: PARoxetine 10MG TABLET PO (10:24)
[2017-11-01 10:38] LABS: BASO # 0.1 10^3/uL (0.0-0.2); BASO % 0.6 % (0.0-1.0); EOS # 0.4 10^3/uL (0.0-0.50); EOS % 4.5 % (0.0-3.0); HEMATOCRIT 50.3 % (42.0-52.0); HEMOGLOBIN 17.1 g/dl (14.0-18.0); IMMATURE GRANULOCYTE % 0.5 % (0-3.0); LYMPH # 2.8 10^3/uL (1.5-4.5); MEAN CORPUSCULAR HEMOGLOBIN 29.7 pg (27.0-33.0); MEAN CORPUSCULAR VOLUME 87.5 fl (80.0-96.0); MONO # 0.7 10^3/uL (0.0-0.8); MONO % 7.7 % (0.0-5.0); NEUTROPHILS # 4.6 10^3/uL (1.8-7.7); NEUTROPHILS % 53.7 % (36.0-66.0); PLATELET COUNT, AUTOMATED 371 10^3/uL (150-450); RED BLOOD COUNT 5.75 10^6/uL (4.30-6.10); RED CELL DISTRIBUTION WIDTH 12.8 % (11.5-14.5); WHITE BLOOD COUNT 8.6 10^3/uL (4.0-10.0)
[2017-11-01 11:08] LABS: ALBUMIN 4.6 GM/DL (3.2-5.2); ALBUMIN/GLOBULIN RATIO 1.39 (1.00-1.93); ALKALINE PHOSPHATASE 53 U/L (45-117); ALT/SGPT 25 U/L (12-78); ANION GAP 8 MEQ/L (8-16); AST/SGOT 21 U/L (7-37); BILIRUBIN,TOTAL 0.8 MG/DL (0.2-1.0); BLOOD UREA NITROGEN 22 MG/DL (7-18); CALCIUM LEVEL 9.5 MG/DL (8.5-10.1); CARBON DIOXIDE LEVEL 29 MEQ/L (21-32); CHLORIDE LEVEL 102 MEQ/L (98-107); CREATININE FOR GFR 1.14 MG/DL (0.70-1.30); GLOMERULAR FILTRATION RATE > 60.0 (>60); GLUCOSE, FASTING 79 MG/DL (70-100); POTASSIUM SERUM 4.5 MEQ/L (3.5-5.1); SODIUM LEVEL 139 MEQ/L (136-145); TOTAL PROTEIN 7.9 GM/DL (6.4-8.2)
[2017-11-01 15:23] LABS: KETONE, URINE AUTO RFX NEGATIVE (NEGATIVE); LEUKOCYTE ESTERASE UR AUTO RFX NEGATIVE (NEGATIVE); MUCUS, URINE RFX SMALL (NEGATIVE); NITRITE, URINE AUTO RFX NEGATIVE (NEGATIVE); RBC, URINE AUTO RFX 0 /HPF (0-3); SPECIFIC GRAVITY UR AUTO RFX 1.015 (1.002-1.035); SQUAM EPITHELIAL CELL UR AURFX 0 /HPF (0-6); WBC, URINE AUTO RFX 0 /HPF (0-3)
[2017-11-01] MEDS: ACETAMINOPHEN TAB 650MG DOSE (2X325MG) PO (18:50)
[2017-11-01] MEDS: hydrOXYzine 50 MG TAB PO (21:43)
[2017-11-02] MEDS: PARoxetine 10MG TABLET PO (08:45)
[2017-11-02] MEDS: ESCITALOPRAM OXALATE 5MG TABLET (LEXAPRO) PO (14:43)
[2017-11-03] MEDS: ESCITALOPRAM OXALATE 5MG TABLET (LEXAPRO) PO (08:14)
[2017-11-03] MEDS: ESCITALOPRAM OXALATE 10 MG TAB (LEXAPRO) PO (09:00)
[2017-11-03] MEDS: hydrOXYzine 50 MG TAB PO (22:23)
[2017-11-04] MEDS: ESCITALOPRAM OXALATE 10 MG TAB (LEXAPRO) PO (08:38)
[2017-11-05] MEDS: ESCITALOPRAM OXALATE 10 MG TAB (LEXAPRO) PO (09:02)
[2017-11-05] MEDS: hydrOXYzine 50 MG TAB PO (21:45)
[2017-11-06] MEDS: ESCITALOPRAM OXALATE 10 MG TAB (LEXAPRO) PO (08:26)
== END 2017-11-06 13:15 | disposition home or self-care (01) | DRG 755 ==
LOC: M ED 15:15 → M ED INP 18:16 → M PSY 20:45
DX: F43.23 Adjustment disorder with mixed anxiety and depressed mood (principal); F19.94 Other psychoactive substance use, unspecified with psychoactive substance-induced mood disorder; F12.20 Cannabis dependence, uncomplicated; R10.9 Unspecified abdominal pain; Z88.0 Allergy status to penicillin; Z88.8 Allergy status to other drugs, medicaments and biological substances

== ENCOUNTER 2017-12-22 12:34 | Emergency (ER) | payer OTHER, SELFPAY ==
[2017-12-22] MEDS: NAPROXEN 250 MG TAB PO (13:04)
[2017-12-22 13:12] LABS: BASO # 0.1 10^3/uL (0.0-0.2); BASO % 0.5 % (0.0-1.0); EOS # 0.5 10^3/uL (0.0-0.50); HEMATOCRIT 44.2 % (42.0-52.0); HEMOGLOBIN 14.8 g/dl (13.5-17.5); IMMATURE GRANULOCYTE % 0.5 % (0-3.0); LYMPH # 2.6 10^3/uL (1.5-4.5); MEAN CORPUSCULAR HEMOGLOBIN 29.7 pg (27.0-33.0); MEAN CORPUSCULAR HGB CONC 33.5 g/dl (32.0-36.5); MEAN CORPUSCULAR VOLUME 88.8 fl (80.0-96.0); MONO # 0.9 10^3/uL (0.0-0.8); MONO % 7.1 % (0.0-5.0); NEUTROPHILS # 8.4 10^3/uL (1.8-7.7); NEUTROPHILS % 66.9 % (36.0-66.0); PLATELET COUNT, AUTOMATED 367 10^3/uL (150-450); RED BLOOD COUNT 4.98 10^6/uL (4.30-6.10); RED CELL DISTRIBUTION WIDTH 13.3 % (11.5-14.5); WHITE BLOOD COUNT 12.5 10^3/uL (4.0-10.0)
[2017-12-22 13:36] LABS: ANION GAP 7 MEQ/L (8-16); BLOOD UREA NITROGEN 17 MG/DL (7-18); CARBON DIOXIDE LEVEL 25 MEQ/L (21-32); CHLORIDE LEVEL 111 MEQ/L (98-107); CREATININE FOR GFR 0.95 MG/DL (0.70-1.30); GLOMERULAR FILTRATION RATE > 60.0 (>60); GLUCOSE, FASTING 92 MG/DL (70-100); POTASSIUM SERUM 4.4 MEQ/L (3.5-5.1); SODIUM LEVEL 143 MEQ/L (136-145); URIC ACID 4.6 MG/DL (3.5-7.2)
== END 2017-12-22 14:15 | disposition home or self-care (01) ==
LOC: M ED 12:34
DX: S66.911A Strain of unspecified muscle, fascia and tendon at wrist and hand level, right hand, initial encounter (principal); X58.XXXA Exposure to other specified factors, initial encounter; Y92.89 Other specified places as the place of occurrence of the external cause; D68.51 Activated protein C resistance; Z87.891 Personal history of nicotine dependence; Z88.8 Allergy status to other drugs, medicaments and biological substances; Z88.0 Allergy status to penicillin; Z79.899 Other long term (current) drug therapy
CPT/HCPCS: 84550

== ENCOUNTER 2018-02-01 09:17 | Emergency (ER) | payer OTHER | END 2018-02-01 10:06 | disposition home or self-care (01) | LOC: M ED 09:17 | DX: H65.03 Acute serous otitis media, bilateral (principal); J30.9 Allergic rhinitis, unspecified; Z88.0 Allergy status to penicillin; Z88.8 Allergy status to other drugs, medicaments and biological substances; F17.210 Nicotine dependence, cigarettes, uncomplicated | CPT/HCPCS: 87880 ==

== ENCOUNTER 2018-04-12 23:24 | Inpatient (IN) | payer OTHER ==
[2018-04-12] MEDS: LORazepam 2 MG/ML VIAL (J2060) IM (23:30)
[2018-04-12] MEDS: HALOPERIDOL 5 MG/ML VIAL (J1630) IM (23:43)
[2018-04-12] MEDS: diphenhydrAMINE INJ 50MG/ML VIAL (J1200) IM (23:43)
[2018-04-13 00:39] LABS: HEMATOCRIT 50.4 % (42.0-52.0); MEAN CORPUSCULAR HGB CONC 33.7 g/dl (32.0-36.5); MEAN CORPUSCULAR VOLUME 88.9 fl (80.0-96.0); PLATELET COUNT, AUTOMATED 356 10^3/uL (150-450); RED BLOOD COUNT 5.67 10^6/uL (4.30-6.10); RED CELL DISTRIBUTION WIDTH 13.6 % (11.5-14.5); WHITE BLOOD COUNT 8.6 10^3/uL (4.0-10.0)
[2018-04-13 00:52] LABS: ALBUMIN 3.9 GM/DL (3.2-5.2); ALBUMIN/GLOBULIN RATIO 1.18 (1.00-1.93); ALKALINE PHOSPHATASE 55 U/L (45-117); ALT/SGPT 24 U/L (12-78); ANION GAP 11 MEQ/L (8-16); AST/SGOT 16 U/L (7-37); BILIRUBIN,DIRECT < 0.1 MG/DL (0.0-0.2); BILIRUBIN,TOTAL 0.3 MG/DL (0.2-1.0); BLOOD UREA NITROGEN 14 MG/DL (7-18); CALCIUM LEVEL 8.6 MG/DL (8.5-10.1); CARBON DIOXIDE LEVEL 23 MEQ/L (21-32); CHLORIDE LEVEL 107 MEQ/L (98-107); CREATININE FOR GFR 0.95 MG/DL (0.70-1.30); ETHYL ALCOHOL (ETHANOL) 0.022 % (0.000-0.010); GLOMERULAR FILTRATION RATE > 60.0 (>60); GLUCOSE, FASTING 88 MG/DL (70-100); POTASSIUM SERUM 3.8 MEQ/L (3.5-5.1); SALICYLATE LEVEL 4.3 MG/DL (5.0-30.0); SODIUM LEVEL 141 MEQ/L (136-145); TOTAL PROTEIN 7.2 GM/DL (6.4-8.2)
[2018-04-13 00:54] LABS: ACETAMINOPHEN LEVEL < 2.0 UG/ML (10.0-30.0)
[2018-04-13 05:04] LABS: AMPHETAMINES LEVEL URINE NEGATIVE (NEGATIVE); BARBITURATES URINE NEGATIVE (NEGATIVE); BENZODIAZEPINES URINE NEGATIVE (NEGATIVE); CANNABINOIDS URINE POSITIVE (NEGATIVE); COCAINE METABOLITE URINE NEGATIVE (NEGATIVE); METHADONE URINE NEGATIVE (NEGATIVE); OPIATES URINE NEGATIVE (NEGATIVE); PHENCYCLIDINE URINE NEGATIVE (NEGATIVE)
[2018-04-13] MEDS: NICOTINE 21MG/24HR 1 EA TRANSDERMAL TD (09:00)
[2018-04-13] MEDS ORDERED: MOM 30ML SUSPENSION UDC PO (09:30)
[2018-04-13] MEDS ORDERED: MAALOX 30 ML SUSP *UDC PO (09:30)
[2018-04-13] MEDS ORDERED: traZODone 50 MG TAB PO (09:30)
[2018-04-13] MEDS: PROPRANOLOL 10 MG TAB PO ×2 (15:05→21:00)
[2018-04-13] MEDS: ESCITALOPRAM OXALATE 10 MG TAB (LEXAPRO) PO (21:00)
[2018-04-14] MEDS: NICOTINE 21MG/24HR 1 EA TRANSDERMAL TD (09:00)
[2018-04-14] MEDS: PROPRANOLOL 10 MG TAB PO ×4 (09:00→20:34)
[2018-04-14] MEDS: hydrOXYzine 50 MG TAB PO (11:26)
[2018-04-14] MEDS ORDERED: LORazepam 2 MG TAB As Ordered (13:09)
[2018-04-14] MEDS: LORazepam 2 MG TAB PO (13:16)
[2018-04-14] MEDS: ESCITALOPRAM OXALATE 10 MG TAB (LEXAPRO) PO (20:33)
[2018-04-14] MEDS: DOXEPIN 25 MG CAP PO (21:11)
[2018-04-15] MEDS: NICOTINE 21MG/24HR 1 EA TRANSDERMAL TD (08:45)
[2018-04-15] MEDS: PROPRANOLOL 10 MG TAB PO ×3 (08:45→20:29)
[2018-04-15 09:34] LABS: BEDSIDE GLUCOSE 115 MG/DL (70-105)
[2018-04-15] MEDS ORDERED: HALOPERIDOL 5 MG TAB PO (10:45)
[2018-04-15] MEDS: ACETAMINOPHEN TAB 650MG DOSE (2X325MG) PO (17:46)
[2018-04-15] MEDS: ESCITALOPRAM OXALATE 10 MG TAB (LEXAPRO) PO (20:29)
[2018-04-15] MEDS: DOXEPIN 25 MG CAP PO (21:42)
[2018-04-16] MEDS: NICOTINE 21MG/24HR 1 EA TRANSDERMAL TD (08:17)
[2018-04-16] MEDS: PROPRANOLOL 10 MG TAB PO ×3 (08:17→20:49)
[2018-04-16] MEDS: HALOPERIDOL 5 MG TAB PO ×2 (11:55→20:49)
[2018-04-16] MEDS: ESCITALOPRAM OXALATE 10 MG TAB (LEXAPRO) PO (20:49)
[2018-04-17] MEDS: NICOTINE 21MG/24HR 1 EA TRANSDERMAL TD (09:00)
[2018-04-17] MEDS: HALOPERIDOL 5 MG TAB PO ×2 (09:03→21:14)
[2018-04-17] MEDS: PROPRANOLOL 10 MG TAB PO ×3 (09:04→21:00)
[2018-04-17] MEDS: ESCITALOPRAM OXALATE 10 MG TAB (LEXAPRO) PO (21:14)
[2018-04-18] MEDS: NICOTINE 21MG/24HR 1 EA TRANSDERMAL TD (08:04)
[2018-04-18] MEDS: HALOPERIDOL 5 MG TAB PO (08:04)
[2018-04-18] MEDS: PROPRANOLOL 10 MG TAB PO (08:06)
== END 2018-04-18 13:00 | disposition home or self-care (01) | DRG 755 ==
LOC: M PSY 04-17 19:26 → M ED 23:24 → M ED INP 04-13 09:25 → M PSY 04-13 10:30
DX: F43.22 Adjustment disorder with anxiety (principal); R45.850 Homicidal ideations; R45.851 Suicidal ideations; F23 Brief psychotic disorder; Z79.899 Other long term (current) drug therapy; Z88.0 Allergy status to penicillin; Z88.8 Allergy status to other drugs, medicaments and biological substances; F17.210 Nicotine dependence, cigarettes, uncomplicated; M50.30 Other cervical disc degeneration, unspecified cervical region

== ENCOUNTER 2018-05-29 17:59 | Emergency (ER) | payer OTHER ==
[2018-05-29] MEDS: KETOROLAC TROMETHAMINE 10 MG TAB PO (19:46)
== END 2018-05-29 19:50 | disposition home or self-care (01) ==
LOC: M ED 17:59
DX: S60.221A Contusion of right hand, initial encounter (principal); W23.0XXA Caught, crushed, jammed, or pinched between moving objects, initial encounter; Y92.009 Unspecified place in unspecified non-institutional (private) residence as the place of occurrence of the external cause; D68.51 Activated protein C resistance; F33.9 Major depressive disorder, recurrent, unspecified; F41.9 Anxiety disorder, unspecified; F17.200 Nicotine dependence, unspecified, uncomplicated; Z88.8 Allergy status to other drugs, medicaments and biological substances; Z88.0 Allergy status to penicillin; Z79.899 Other long term (current) drug therapy
CPT/HCPCS: 73130

== ENCOUNTER 2018-09-13 08:11 | Emergency (ER) | payer OTHER ==
[~2018-09-13] VITALS: Ht 188 cm; Wt 84.1 kg
[~2018-09-13 08:11] MED LIST changes: +DIVA250T67; +DOXE25CA PO; +EFFE75CA2 PO; -EFFE75CA75 PO; +ESCI10TA2 PO; +ESCI20TA; +FLON1SPR; +HALO5TA PO; +KETO10TAB PO; +LEXA1TAB2 PO; +MOBI15TA PO; +MUCI600T37 PO; +NAPR-50 PO; +NAPR-885 PO; +NORCOTAB PO; +PROP10TA56 PO; +RANI15TA PO; +ROBA500T PO; +SUDA30TA8 PO; -VENL75CA PO; +VENL75CA2 PO; +ZYRT10CA5 PO
[2018-09-13] MEDS ORDERED: ACET32TAB PO (08:15)
[2018-09-13] MEDS ORDERED: KETOROLAC TROMETHAMINE 10 MG TAB PO ONE (09:00)
[2018-09-13] MEDS ORDERED: LIDOCAINE VISCOUS 2% SOLN 15ML UDC MT ONE (09:00)
[2018-09-13] MEDS ORDERED: CLINDAMYCIN 150 MG CAP PO ONE (09:00)
[2018-09-13] MEDS ORDERED: KETO10TAB PO (09:19)
[2018-09-13] MEDS ORDERED: NORCOTAB PO (09:19)
[2018-09-13] MEDS ORDERED: CLEO300C2 PO (09:19)
[2018-09-13 09:26] VITALS: BP 118/70
== END 2018-09-13 09:28 | disposition home or self-care (01) ==
LOC: M ED 08:11
DX: K04.7 Periapical abscess without sinus (principal); S02.5XXA Fracture of tooth (traumatic), initial encounter for closed fracture; X58.XXXA Exposure to other specified factors, initial encounter; Y92.9 Unspecified place or not applicable; Y93.9 Activity, unspecified; Y99.9 Unspecified external cause status; D68.2 Hereditary deficiency of other clotting factors; F41.9 Anxiety disorder, unspecified; F32.9 Major depressive disorder, single episode, unspecified; Z72.0 Tobacco use; Z88.0 Allergy status to penicillin; Z88.8 Allergy status to other drugs, medicaments and biological substances

== ENCOUNTER 2018-10-31 11:36 | Inpatient (IN) | payer OTHER ==
[~2018-10-31] VITALS: Ht 188 cm; Wt 81.4 kg
[2018-10-31] MEDS: NICOTINE 21MG/24HR 1 EA TRANSDERMAL TD SCH (09:00)
[~2018-10-31 11:36] MED LIST changes: +ACET32TAB PO; +CLEO300C2 PO
[2018-10-31 13:20] LABS: HEMOGLOBIN 16.1 g/dl (13.5-17.5); MEAN CORPUSCULAR HEMOGLOBIN 29.1 pg (27.0-33.0); MEAN CORPUSCULAR HGB CONC 32.9 g/dl (32.0-36.5); MEAN CORPUSCULAR VOLUME 88.6 fl (80.0-96.0); PLATELET COUNT, AUTOMATED 347 10^3/uL (150-450); RED BLOOD COUNT 5.53 10^6/uL (4.30-6.10); WHITE BLOOD COUNT 8.6 10^3/uL (4.0-10.0)
[2018-10-31 13:46] LABS: AMPHETAMINES LEVEL URINE NEGATIVE (NEGATIVE); BARBITURATES URINE NEGATIVE (NEGATIVE); BENZODIAZEPINES URINE NEGATIVE (NEGATIVE); CANNABINOIDS URINE POSITIVE (NEGATIVE); COCAINE METABOLITE URINE POSITIVE (NEGATIVE); METHADONE URINE NEGATIVE (NEGATIVE); OPIATES URINE NEGATIVE (NEGATIVE); PHENCYCLIDINE URINE NEGATIVE (NEGATIVE)
[2018-10-31 14:10] LABS: ACETAMINOPHEN LEVEL < 2.0 UG/ML (10.0-30.0); ALBUMIN 3.8 GM/DL (3.2-5.2); ALT/SGPT 19 U/L (12-78); BILIRUBIN,DIRECT 0.1 MG/DL (0.0-0.2); BILIRUBIN,TOTAL 0.2 MG/DL (0.2-1.0); BLOOD UREA NITROGEN 13 MG/DL (7-18); CALCIUM LEVEL 8.4 MG/DL (8.5-10.1); CARBON DIOXIDE LEVEL 29 MEQ/L (21-32); CHLORIDE LEVEL 111 MEQ/L (98-107); CREATININE FOR GFR 1.14 MG/DL (0.70-1.30); ETHYL ALCOHOL (ETHANOL) < 0.003 % (0.000-0.010); GLOMERULAR FILTRATION RATE > 60.0 (>60); GLUCOSE, FASTING 88 MG/DL (70-100); POTASSIUM SERUM 4.2 MEQ/L (3.5-5.1); SALICYLATE LEVEL 3.5 MG/DL (5.0-30.0); SODIUM LEVEL 142 MEQ/L (136-145); TOTAL PROTEIN 6.7 GM/DL (6.4-8.2)
[2018-10-31] MEDS ORDERED: MAALOX 30 ML SUSP *UDC PO PRN (15:00)
[2018-10-31] MEDS ORDERED: ACETAMINOPHEN TAB 650MG DOSE (2X325MG) PO PRN (15:00)
[2018-10-31] MEDS ORDERED: MOM 30ML SUSPENSION UDC PO PRN (15:00)
[2018-10-31] MEDS ORDERED: traZODone 50 MG TAB PO PRN (15:00)
[2018-10-31 16:12] VITALS: BP 135/84
[2018-11-01 06:39] VITALS: BP 148/81
[2018-11-01] MEDS: NICOTINE 21MG/24HR 1 EA TRANSDERMAL TD SCH (09:00)
--- NOTE | 2018-11-01 09:42 | HPEPDOC ---
[facility] Medical History & Physical Date of Admission Oct 31, 2018 History and Physical PCP: None ATTENDING: Dr. Isi Proctor HPI: 43yoM admitted to [facility] for unspecified depression, being medically examined today. Pt reported in ED that he had stopped his psych meds about 8 mo ago because he did not feel he needed them. Pt reports no verbalized concerns at this time. Denies any fevers, chills, weakness, fatigue, RIOS, CP, SOB, cough, palpitations, abdominal pain, N/V/D or changes in bowel or bladder habits. PMHx: Anxiety Depression H/O SI Cervical DDD Substance use Factor V deficiency. Pt denies any bleeding. PSHX: Left eye foreign body SOCHX: Resides in: [facility] Marital Status: Single Kids: 2 Employment: unemployed Tobacco use: 1 ppd ETOH: denies Illicit Drugs: Marijuana daily. History of Methamphetamine. Attended re habilitation at [facility] in past. IV Drug Use: Methamphetamine in past. Tattoos done unprofessionally: Denies FAMHX: Mother: Alive, well Father: Alive, well Siblings: Alive, well Children: Alive, well Unexpected deaths due to medical reasons: None. ROS: As noted in HPI, otherwise 11pt ROS of systems reviewed and unremarkable. Pt denies any recent bleeding, epistaxis, bruising. PE: GEN: 43yoM, appears stated age. Appears unkept. No acute distress. Alert and o riented x 3. Flat affect, 1-2 word answers, avoids eye contact. HEENT: Normocephalic, atraumatic. Pupils are equal, round, and reactive to light. Extraocular movements are intact. No nystagmus appreciated. Sclera are nonicteric. Conjunctiva without injection. Nose midline. Nasal turbinates without bogginess. EACs both patent BL. TMs both visualized and toussaint with good cone of light, no bulging or erythema. No facial asymmetry. Moist mucous membranes. Dentition fair. Pharynx pink and moist. Neck supple, trachea midline. No lymphadenopathy or thyromegaly appreciated. CHEST: Regular rate and rhythm, +S1, +S2 LUNGS: Clear to auscultation bilaterally. No wheezes, rales, or rhonchi. Breathing appears symmetric and easy. Patient is speaking in full sentences. No accessory muscle use. ABD: Round, soft, mild tenderness in the left lower quadrant and right lower quadrant diffusely, non-distended. +Bowel sounds throughout. No rebound or guarding. No costovertebral angle tenderness. EXT: Pulses 2+ bilaterally dorsalis pedis and radial. No lower extremity edema appreciated. SKIN: [place], dry, warm. Capillary refill <2sec. No rashes. NEURO: Alert and oriented x 3. Cranial nerves III-XII are intact. No focal deficits appreciated. EKG: SINUS BRADYCARDIA otherwise within normal limits Electronically Signed On 04-13-2018 16:37:12 EDT by Angelito Lea A&P: 43yoM admitted to [facility] for unspecified depression. 1. Psych. Plan per Psychiatry. EKG on file. 2. History of cervical DDD. Tylenol as needed. Patient denies any pain at this time. 3. History of IVDU. Patient declines HIV/hepatitis screening. Patient states previous testing was negative. 4. Follow up. No Primary Care Provider. Will attempt to establish PCP on discharge. 5. Substance use. Management per psychiatry. 6. Staff member Ed present throughout exam. Vital Signs Vital Signs Date Time Temp Pulse Resp B/P (MAP) Pulse Ox O2 Delivery O2 Flow Rate FiO2 11/01/18 06:39 99.1 56 14 148/81 (103) 10/31/18 15:23 97 Room Air Laboratory Data Labs 24H Laboratory Tests 2 10/31/18 12:14: Urine Amphetamines Screen NEGATIVE, Urine Benzodiazepines Screen NEGATIVE, Urine Opiates Screen NEGATIVE, Urine Methadone Screen NEGATIVE, Urine Barbiturates Screen NEGATIVE, Urine Phencyclidine Screen NEGATIVE, Urine Cocaine Metabolite Screen POSITIVEH, Urine Cannabinoids Screen POSITIVEH 10/31/18 12:59: Nucleated Red Blood Cells % (auto) 0.0, Anion Gap 2L, Glomerular Filtration Rate > 60.0, Calcium Level 8.4L, Aspartate Amino Transf (AST/SGOT) 17, Alanine Aminotransferase (ALT/SGPT) 19, Alkaline Phosphatase 51, Total Bilirubin 0.2, Direct Bilirubin 0.1, Total Protein 6.7, Albumin 3.8, Albumin/Globulin Ratio 1.31, Thyroid Stimulating Hormone (TSH) 0.560, Salicylates Level 3.5L, Acetaminophen Level < 2.0L, Ethyl Alcohol Level < 0.003 CBC/BMP Laboratory Tests 10/31/18 12:59 Red Blood Count 5.53, Mean Corpuscular Volume 88.6, Mean Corpuscular Hemoglobin 29.1, Mean Corpuscular Hemoglobin Concent 32.9, Red Cell Distribution Width 13.2 Home Medications No Active Prescriptions or Reported Meds Allergies Coded Allergies: Penicillins (Verified Allergy, Intermediate, HIVES, 11/29/12) Penicillins Cross Reactors (Verified Allergy, Intermediate, HIVES, 11/29/12) Quetiapine (Verified Adverse Reaction, Intermediate, Insomnia and restless legs, 01/12/17) Trazodone (Verified Adverse Reaction, Intermediate, Insomnia and restless legs, 01/12/17) Pat Yu Nov 01, 2018 09:42
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
[2018-11-01] MEDS: DULoxetine 30 MG CAP (CYMBALTA) PO SCH (11:36)
[2018-11-01 18:00] VITALS: BP 139/83
[2018-11-02 06:00] VITALS: BP 102/64
[2018-11-02] MEDS: DULoxetine 30 MG CAP (CYMBALTA) PO SCH (09:02)
[2018-11-02 18:04] VITALS: BP 132/83
[2018-11-02] MEDS: MIRTAZAPINE 15 MG TAB PO SCH (21:00)
--- NOTE | 2018-11-02 21:42 | MHIPNPDOC ---
[facility] Progress Note Progress Note DATE OF SERVICE: 11/02/18 HISTORY: CHIEF COMPLAINT: "I can't live like this anymore" HISTORY OF PRESENT ILLNESS: Patient is a 43-year-old male, who according to ED report: PT comes to ED stating he has been depressed overwhelmed for over a month. He states he does not wish to actively kill himself but is hopeful that he wouldn't wake up in the morning or that a truck would hit and kill him. He states he ended a relationship about a month ago as he didn't want to deal with it anymore. He currently is suffering with racing thoughts, paranoia and social anxiety to the point he rarely leaves his home. PT has flat affect and feels if discharged he will be at risk of harming himself "I can't live like this anymore". PT decided about 8 months ago to wean himself off all of his medications without notifying his psychiatrist via the [facility] as he no longer felt he needed them. PT cannot CFS" VITAL SIGNS: See below. NEW TEST RESULTS: See below CURRENT MEDICATIONS: See below. MENTAL STATUS EXAMINATION: General Appearance: unkempt, appears stated age, hospital scrubs/clothing Build: average Demeanor: defiant, angry, irritable Eye Contact: poor Activity: psychomotor retardation, patient is laying in be and states: "I won't get up, I won't attend groups" Behavior: defiant, angry, uncooperative Speech: clear, spontaneous, normal rate. rhythm, tone an volume Mood: angry/irritable Mood angry Affect: congruent with mood Thought Process: logical/linear, intact Thought Content (Delusions): admits to feel "paranoid"at times Thought Content (Other): admits to have suicidal thoughts where he wishes to be (passive SI) Thought Content (Aggressive): none reported Perception (Hallucinations): none reported Perception (Other): flashbacks Cognition (Impairment of): none reported Cognition(Intelligence Est.): average Oriented: Awake, Alert, Oriented times three Insight: poor Judgment: Fair Psychosis: Denies Diagnoses 1. Other specified mood disorder 2. Social Anxiety disorder 3. Panic disorder 4. PTSD 5. cocaine use disorder 6. Marihuana use disorder 7. R/O substance induced mood disorder ASSESSMENT: Patient is angry and irritable today. He is laying in bed saying that he won't attend groups, he says nobody will make him attend, complains about how cold the lounge feels, about the noise. Says that he is going to request being discharged and transferred somewhere else because "this place sucks". Patient tested positive for cocaine and marihuana while at the ED. Yesterday he reported some symptoms that could be congruent with bipolar disorder, or with borderline personality or with a substance induced mood disorder. I believe he might be experiencing the "cocaine crash", depression that people experience after stopping cocaine and probably will feel irritable and depressed for some time. Will increase Abilify, will start him on Remeron 30 mgs PO QHS at bedtime and Inderal 10 mgs PO TIDP for anxiety/agitation/panic attacks MANAGEMENT PLAN: Cymbalta 30 mgs PO QAM Abilify 2.5 mgs PO QAM Abilify 5 mgs Po QHS Remeron 30 mgs PO QHS Propranolol 10 mgs PO TIDP for anxiety/agitation/panic attacks TIME SPENT: 15 minutes. Vital Signs Vital Signs Date Time Temp Pulse Resp B/P (MAP) Pulse Ox O2 Delivery O2 Flow Rate FiO2 11/02/18 18:04 98.1 62 16 132/83 (99) 10/31/18 15:23 97 Room Air Current Medications Current Medications Acetaminophen (Tylenol Tab) 650 mg Q6HP PRN PO HEADACHE or DISCOMFORT; Start 10/31/18 at 15:00 Al Hydrox/Mg Hydrox/Simethicone (Mylanta) 30 ml Q4HP PRN PO HEARTBURN/INDIG ESTION; Start 10/31/18 at 15:00 Aripiprazole (AbiLIFY) 2.5 mg BID PO Last administered on 11/02/18at 09:02; Start 11/01/18 at 09:00; Stop 11/02/18 at 13:19; Status DC Aripiprazole (AbiLIFY) 2.5 mg QAM PO ; Start 11/03/18 at 09:00 Aripiprazole (AbiLIFY) 5 mg QHS PO Last administered on 11/02/18at 21:07; Start 11/02/18 at 21:00 Duloxetine HCl (Cymbalta) 30 mg QAM PO Last administered on 11/02/18at 09:02; Start 11/01/18 at 09:00; Stop 11/02/18 at 13:29; Status DC Duloxetine HCl (Cymbalta) 40 mg DAILY PO ; Start 11/03/18 at 09:00 Home Med (Med Rec Complete!) ASDIRECTED XX ; Start 10/31/18 at 15:30; Stop 10/31/18 at 15:30; Status DC Magnesium Hydroxide (Milk Of Magnesia) 30 ml DAILYPRN PRN PO CONSTIPATION; Start 10/31/18 at 15:00 Nicotine (Nicoderm Cq 21mg) 1 patch DAILY TD ; Start 10/31/18 at 09:00; Stop 11/01/18 at 10:39; Status DC Trazodone HCl (Desyrel) 50 mg QHSP PRN PO INSOMNIA; Start 10/31/18 at 15:00; Status Cancel Allergies Coded Allergies: Penicillins (Verified Allergy, Intermediate, HIVES, 11/29/12) Penicillins Cross Reactors (Verified Allergy, Intermediate, HIVES, 11/29/12) Quetiapine (Verified Adverse Reaction, Intermediate, Insomnia and restless legs, 01/12/17) Trazodone (Verified Adverse Reaction, Intermediate, Insomnia and restless legs, 01/12/17) FLORIDALMA SLADE MD Nov 02, 2018 21:24
[2018-11-02] MEDS ORDERED: PROPRANOLOL 10 MG TAB PO PRN (21:45)
[2018-11-03 06:18] VITALS: BP 140/81
[2018-11-03] MEDS: NICOTINE 21MG/24HR 1 EA TRANSDERMAL TD SCH (08:10)
[2018-11-03] MEDS: DULoxetine 20 MG CAP (CYMBALTA) PO SCH (08:12)
[2018-11-03 18:37] VITALS: BP 144/76
[2018-11-03] MEDS: MIRTAZAPINE 15 MG TAB PO SCH (20:33)
[2018-11-04 06:13] VITALS: BP 124/80
[2018-11-04] MEDS: NICOTINE 21MG/24HR 1 EA TRANSDERMAL TD SCH (08:41)
[2018-11-04] MEDS: DULoxetine 20 MG CAP (CYMBALTA) PO SCH (08:42)
[2018-11-04 18:00] VITALS: BP 142/90
[2018-11-04] MEDS: MIRTAZAPINE 15 MG TAB PO SCH (20:28)
[2018-11-05 06:20] VITALS: BP 144/88
[2018-11-05] MEDS: PILL CRUSHER/CUTTER 1 EACH XX PRN (08:34)
[2018-11-05] MEDS: DULoxetine 20 MG CAP (CYMBALTA) PO SCH (08:35)
[2018-11-05] MEDS: NICOTINE 21MG/24HR 1 EA TRANSDERMAL TD SCH (08:36)
[2018-11-05] MEDS ORDERED: MIRTAZAPINE 15 MG TAB PO PRN (14:30)
--- NOTE | 2018-11-05 15:47 | IPN ---
DATE: 11/04/2018 The patient today states that he is still having a lot of anxiety, but he is not as depressed. He says that his mood is about a 5 out of 10 where the closest to 10 is the most depressed. Today, he says that he is trying to keep himself up as opposed to yesterday when he was sleeping more through the day. MENTAL STATUS EXAMINATION: He is alert and oriented times three. Eye contact is fair. Psychomotor activity is decreased. He is verbally spontaneous. There is no formal thought disorder noted. Mood is anxious and depressed. Affect is full range and appropriate. He is not psychotic, suicidal or homicidal. Concentration is fair. Memory intact. Insight and judgment fair. DIAGNOSES: 1. Unspecified mood disorder. 2. Social anxiety. 3. Panic disorder. 4. Posttraumatic stress disorder (PTSD). TREATMENT PLAN: We will continue to monitor the patient for continued elevation and stabilization of his mood and for continued resolution of any suicidal ideations. We will await further response from his Cymbalta and Abilify, which were just started.
--- NOTE | 2018-11-05 15:50 | MHIPN ---
DATE: 11/03/2018 The patient today states "My anxiety is pretty high." He is also depressed. His mood is 8/10, where the closest to 10 is the most depressed. He is feeling hopeless and helpless. He says he has been sleeping most of the day. MENTAL STATUS EXAMINATION: He is alert and oriented times three. Eye contact is fair. Psychomotor activity is decreased. He is verbally spontaneous. There is no formal thought disorder noted. Mood is depressed and anxious. Affect full range and appropriate. He is not psychotic, suicidal, homicidal. Concentration is fair. Memory intact. Insight and judgment is fair. DIAGNOSES: 1. Other specified mood disorder. 2. Social anxiety panic disorder. 3. Posttraumatic stress disorder (PTSD). TREATMENT PLAN: The patient just has started on Cymbalta and Abilify and so we will wait for the clinical response to those medications and we will continue to monitor for continued elevation and stabilization of his mood and continued resolution of suicidal ideation.
[2018-11-05 18:00] VITALS: BP 136/78
--- NOTE | 2018-11-05 21:51 | MHIPNPDOC ---
[facility] Progress Note Progress Note DATE OF SERVICE: 11/05/18 HISTORY: CHIEF COMPLAINT: "I can't live like this anymore" HISTORY OF PRESENT ILLNESS: Patient is a 43-year-old male, who according to ED report: PT comes to ED stating he has been depressed overwhelmed for over a month. He states he does not wish to actively kill himself but is hopeful that he wouldn't wake up in the morning or that a truck would hit and kill him. He states he ended a relationship about a month ago as he didn't want to deal with it anymore. He currently is suffering with racing thoughts, paranoia and social anxiety to the point he rarely leaves his home. PT has flat affect and feels if discharged he will be at risk of harming himself "I can't live like this anymore". PT decided about 8 months ago to wean himself off all of his medications without notifying his psychiatrist via the [facility] as he no longer felt he needed them. PT cannot CFS" VITAL SIGNS: See below. NEW TEST RESULTS: See below CURRENT MEDICATIONS: See below. MENTAL STATUS EXAMINATION: General Appearance: unkempt, appears stated age, hospital scrubs/clothing Build: average Demeanor: pleasant, cooperative Eye Contact: poor Activity: active in the Unit, he has been attending groups and socializing in the Unit Behavior: cooperative, calm Speech: clear, spontaneous, normal rate. rhythm, tone an volume Mood: angry/irritable Mood euthymic Affect: congruent with mood Thought Process: logical/linear, intact Thought Content (Delusions): he reports he has not been feeling paranoid lately Thought Content (Other): denies SI/HI Thought Content (Aggressive): none reported Perception (Hallucinations): none reported Perception (Other): flashbacks Cognition (Impairment of): none reported Cognition(Intelligence Est.): average Oriented: Awake, Alert, Oriented times three Insight: poor Judgment: Fair Psychosis: Denies Diagnoses 1. Other specified mood disorder 2. Social Anxiety disorder 3. Panic disorder 4. PTSD 5. cocaine use disorder 6. Marihuana use disorder 7. R/O substance induced mood disorder ASSESSMENT: Patient was playing the guitar at the Activity group, he was pleasant and cooperative, totally different than Monday. His speech was spontaneous and fluent. He said he had a good response to medications, he requested Remeron to be PRN instead of scheduled. He said his anxiety and depression were both, decreased, he was goal orientated, he was deterined, he said, not to smoke cigarettes again. MANAGEMENT PLAN: Cymbalta 30 mgs PO QAM Abilify 2.5 mgs PO QAM Abilify 5 mgs Po QHS Remeron 30 mgs PO QHS Propranolol 10 mgs PO TIDP for anxiety/agitation/panic attacks TIME SPENT: 15 minutes. Vital Signs Vital Signs Date Time Temp Pulse Resp B/P (MAP) Pulse Ox O2 Delivery O2 Flow Rate FiO2 11/05/18 18:00 98.1 86 16 136/78 (97) 10/31/18 15:23 97 Room Air Current Medications Current Medications Acetaminophen (Tylenol Tab) 650 mg Q6HP PRN PO HEADACHE or DISCOMFORT; Start 10/31/18 at 15:00 Al Hydrox/Mg Hydrox/Simethicone (Mylanta) 30 ml Q4HP PRN PO HEARTBURN/INDIGESTION; Start 10/31/18 at 15:00 Aripiprazole (AbiLIFY) 2.5 mg BID PO Last administered on 11/02/18at 09:02; Start 11/01/18 at 09:00; Stop 11/02/18 at 13:19; Status DC Aripiprazole (AbiLIFY) 2.5 mg QAM PO Last administered on 11/05/18at 08:35; Start 11/03/18 at 09:00 Aripiprazole (AbiLIFY) 5 mg QHS PO Last administered on 11/05/18at 20:36; Start 11/02/18 at 21:00 Duloxetine HCl (Cymbalta) 30 mg QAM PO Last administered on 11/02/18at 09:02; Start 11/01/18 at 09:00; Stop 11/02/18 at 13:29; Status DC Duloxetine HCl (Cymbalta) 40 mg DAILY PO Last administered on 11/05/18at 08:35; Start 11/03/18 at 09:00 Home Med (Med Rec Complete!) ASDIRECTED XX ; Start 10/31/18 at 15:30; Stop 10/31/18 at 15:30; Status DC Magnesium Hydroxide (Milk Of Magnesia) 30 ml DAILYPRN PRN PO CONSTIPATION; Start 10/31/18 at 15:00 Mirtazapine (Remeron) 30 mg QHS PO Last administered on 11/04/18at 20:28; Start 11/02/18 at 21:00; Stop 11/05/18 at 14:20; Status DC Mirtazapine (Remeron) 30 mg QHSP PRN PO INSOMNIA; Start 11/05/18 at 14:30 Nicotine (Nicoderm Cq 21mg) 1 patch DAILY TD ; Start 10/31/18 at 09:00; Stop 11/01/18 at 10:39; Status DC Nicotine (Nicoderm Cq 21mg) 1 patch DAILY TD ; Start 11/03/18 at 09:00 Propranolol HCl (Inderal) 10 mg TIDP PRN PO ANXIETY/AGITATION; Start 11/02/18 at 21:45 Trazodone HCl (Desyrel) 50 mg QHSP PRN PO INSOMNIA; Start 10/31/18 at 15:00; Status Cancel Allergies Coded Allergies: Penicillins (Verified Allergy, Intermediate, HIVES, 11/29/12) Penicillins Cross Reactors (Verified Allergy, Intermediate, HIVES, 11/29/12) Quetiapine (Verified Adverse Reaction, Intermediate, Insomnia and restless legs, 01/12/17) Trazodone (Verified Adverse Reaction, Intermediate, Insomnia and restless legs, 01/12/17) FLORIDALMA SLADE MD Nov 05, 2018 21:51
[2018-11-05 22:03] VITALS: BP 134/78
[2018-11-06 06:45] VITALS: BP 137/77
[2018-11-06] MEDS: PILL CRUSHER/CUTTER 1 EACH XX PRN (08:16)
[2018-11-06] MEDS: NICOTINE 21MG/24HR 1 EA TRANSDERMAL TD SCH (08:17)
[2018-11-06] MEDS: DULoxetine 20 MG CAP (CYMBALTA) PO SCH (08:17)
[2018-11-06] MEDS ORDERED: NICO21PAT TD (10:51)
[2018-11-06] MEDS ORDERED: PROP10TAB PO (10:51)
[2018-11-06] MEDS ORDERED: CYMB1CAP4 PO (10:51)
[2018-11-06] MEDS ORDERED: ARIP5TA PO ×2 (10:51)
[2018-11-06] MEDS ORDERED: MIRT15TA3 PO (10:51)
--- NOTE | 2018-11-11 17:03 | MHDSPDOC ---
[facility] Discharge Summary Discharge Summary DATE OF ADMISSION: Oct 31, 2018 at 14:47 DATE OF DISCHARGE: Nov 06, 2018 at 13:20 DISCHARGE DIAGNOSES: 1. Other specified mood disorder 2. Social Anxiety disorder 3. Panic disorder 4. PTSD 5. cocaine use disorder 6. Marihuana use disorder 7. R/O substance induced mood disorder REASON FOR ADMISSION: CHIEF COMPLAINT: "I can't live like this anymore" HISTORY OF PRESENT ILLNESS: Patient is a 43-year-old male, who according to ED report: PT comes to ED stating he has been depressed overwhelmed for over a month. He states he does not wish to actively kill himself but is hopeful that he wouldn't wake up in the morning or that a truck would hit and kill him. He states he ended a relationship about a month ago as he didn't want to deal with it anymore. He currently is suffering with racing thoughts, paranoia and social anxiety to the point he rarely leaves his home. PT has flat affect and feels if discharged he will be at risk of harming himself "I can't live like this anymore". PT decided about 8 months ago to wean himself off all of his medications without notifying his psychiatrist via the [facility] as he no longer felt he needed them. PT cannot CFS" CONSULTANTS INVOLVED: None TREATMENT AND PROGRESS ON THE UNIT : Patient was very depressed, had poor eye contact, flat/sad affect, helplessness, hopelessness, low energy. During his second day of hospitalization, he was feeling irritable, angry, said he didn't like [facility], he complained of being cold, bored, angry, but his improved during the next couple of days, he was happier, he was enjoying playing the SolarReserver at the activity room, he was interacting with other patients, was pleasant and cooperative, started going to groups and he had previously said he was not going to attend. Patient had a good response to medications. TW felt that he fulfilled criteria for PTSD and he had failed many antidepressants before but that probably was because he had used drugs for a long period of time and the drugs most likely interfered with the medications. He received Abilify to boost the an tidepressant effect of Cymbalta, which was the first time he was using (Cymbalta), since he had a history of antidepressants resistance. He also received Propranolol PRN for severe anxiety/panic attacks and Mirtazapine 30 mgs PO QHSP for insomnia. HOSPITAL COURSE: As above DISCHARGE ASSESSMENT: Patient was not homicidal, not suicidal and not psychotic. He was future orientated, he wanted to quit drugs but he thought he would not benefit from going to Rehab because he had been in Rehab many times and he had failed, he thought he didn't have purpose before and now he wanted to change for him and for his family. MENTAL STATUS EXAMINATION ON DISCHARGE: General Appearance: unkempt, appears stated age, hospital scrubs/clothing Build: average Demeanor: pleasant, cooperative Eye Contact: poor Activity: active in the Unit, he has been attending groups and socializing in the Unit Behavior: cooperative, calm Speech: clear, spontaneous, normal rate. rhythm, tone an volume Mood: angry/irritable Mood euthymic Affect: congruent with mood Thought Process: logical/linear, intact Thought Content (Delusions): he reports he has not been feeling paranoid lately Thought Content (Other): denies SI/HI Thought Content (Aggressive): none reported Perception (Hallucinations): none reported Perception (Other): flashbacks Cognition (Impairment of): none reported Cognition(Intelligence Est.): average Oriented: Awake, Alert, Oriented times three Insight: improved Judgment: Fair Psychosis: Denies Diagnoses 1. Other specified mood disorder 2. Social Anxiety disorder 3. Panic disorder 4. PTSD 5. cocaine use disorder 6. Marihuana use disorder 7. R/O substance induced mood disorder MEDICATIONS ON DISCHARGE: Scheduled Aripiprazole (Aripiprazole) 5 Mg Tab, 5 MG PO QHS for mood, #7 Aripiprazole (Aripiprazole) 5 Mg Tab, 2.5 MG PO QAM for mood, #4 Duloxetine HCl (Cymbalta) 20 Mg Cap, 40 MG PO DAILY for depression, #14 Nicotine (Nicotine Transdermal Syst) 21 Mg/24 Hr Dis, 1 PATCH TD DAILY for nicotine withdrawals, #7 Scheduled PRN Mirtazapine (Mirtazapine) 15 Mg Tab, 30 MG PO QHSP PRN for INSOMNIA, #14 Propranolol HCl (Propranolol HCl) 10 Mg Tab, 10 MG PO TIDP PRN for ANXIETY/AGITATION, #21 PLAN/FOLLOWUP ARRANGEMENTS: Follow Up Care Education Label * Mental Health Appt 1 * [facility] * Established With This Provider No * Therapist CRISTY CONDON LCSW * Date Nov 07, 2018 * Time 09:15 * Follow Up Care Education Label * Chemical Dependency Appt1 * Chemical Dependency [facility] * Address of Clinic or Practice [address] [place] [address] * * Additional information Walk in hours from Monday through Monday 8am-4pm Follow Up Care Education Label * Chemical Dependency Appt2 * Address of Clinic or Practice [address] [place] [id number] * * Additional information Walk in hours Monday through Monday from 730am-1230pm Follow Up Care Education Label * Smoking Cessation * Mental Health [facility] * Smoking Cessation [facility] Smoking Cessation * Additional information see attached form Follow Up Care Education Label * Medical * Medical Follow Up [facility]: DR. CHELSI CARR * Established With This Provider No NEW PATIENT APPOINTMENT * Date Nov 13, 2018 * Time 15:00 * The amount of time spent in the coordination of care for this patient was approximately 30 minutes. Vital Signs/I&Os Vital Signs Date Time Temp Pulse Resp B/P (MAP) Pulse Ox O2 Delivery O2 Flow Rate FiO2 11/06/18 08:26 Room Air 11/06/18 06:45 97.3 54 14 137/77 (97) Medications Scheduled Aripiprazole (Aripiprazole) 5 Mg Tab, 5 MG PO QHS for mood, #7 Aripiprazole (Aripiprazole) 5 Mg Tab, 2.5 MG PO QAM for mood, #4 Duloxetine HCl (Cymbalta) 20 Mg Cap, 40 MG PO DAILY for depression, #14 Nicotine (Nicotine Transdermal Syst) 21 Mg/24 Hr Dis, 1 PATCH TD DAILY for nicotine withdrawals, #7 Scheduled PRN Mirtazapine (Mirtazapine) 15 Mg Tab, 30 MG PO QHSP PRN for INSOMNIA, #14 Propranolol HCl (Propranolol HCl) 10 Mg Tab, 10 MG PO TIDP PRN for ANXIETY/AGIT ATION, #21 Allergies Coded Allergies: Penicillins (Verified Allergy, Intermediate, HIVES, 11/29/12) Penicillins Cross Reactors (Verified Allergy, Intermediate, HIVES, 11/29/12) Quetiapine (Verified Adverse Reaction, Intermediate, Insomnia and restless legs, 01/12/17) Trazodone (Verified Adverse Reaction, Intermediate, Insomnia and restless legs, 01/12/17) FLORIDALMA SLADE MD Nov 11, 2018 16:59
== END 2018-11-06 13:20 | disposition home or self-care (01) | DRG 774 ==
LOC: M ED 11:36 → M ED INP 14:47 → M PSY 15:30
PROVIDERS: ADMIT Psychiatry & Neurology Psychiatry; ATTEND Psychiatry & Neurology Psychiatry
DX: F19.94 Other psychoactive substance use, unspecified with psychoactive substance-induced mood disorder (principal); D68.2 Hereditary deficiency of other clotting factors; F14.90 Cocaine use, unspecified, uncomplicated; F12.90 Cannabis use, unspecified, uncomplicated; F43.10 Post-traumatic stress disorder, unspecified; F41.0 Panic disorder [episodic paroxysmal anxiety]; Z88.0 Allergy status to penicillin; Z88.8 Allergy status to other drugs, medicaments and biological substances; M50.30 Other cervical disc degeneration, unspecified cervical region; F17.200 Nicotine dependence, unspecified, uncomplicated

== ENCOUNTER → 2020-08-24 | Outpatient (REF) | payer OTHER, MEDICAID ==
[~2020-08-24] MED LIST changes: +ACET325T43 PO; -ACET32TAB PO; +ARIP1TAB6 PO; +BACT800T5 PO; +CYMB1CAP4 PO; +HYDR-3715 PO; +HYDR1TAB33 PO; -HYDRO50TAB PO; +MIRT15TA3 PO; -NAPR-50 PO; +NAPR-837 PO; +NICO21PAT TD; -NORCOTAB PO; +PROP10TA55 PO
== END ==
LOC: M LAB REF 16:11
PROVIDERS: ATTEND Physician Assistant Medical
DX: Z11.59 Encounter for screening for other viral diseases (principal)

== ENCOUNTER 2020-10-13 04:09 | Inpatient (IN) | payer MEDICAID, OTHER ==
[~2020-10-13] VITALS: Ht 193 cm; Wt 71.4 kg
[~2020-10-13 04:09] MED LIST changes: +ESCI10TA16 PO; -ESCI10TA2 PO; -ESCI20TA; +ESCI20TA16
--- OUTSIDE RECORDS SUMMARY | 2020-10-13 04:15 | CCD ---
Author Author [facility] Organization [facility] Address Unknown Phone Unavailable Care Team Providers Care Oracle Identity Management Consultant Name Role Phone Meredith Bhattsusi FULTON LOG HAUL OPERATOR Unavailable Unavailable Re-disclosure Warning The records that you are about to access may contain information from federally-assisted alcohol or drug abuse programs. If such information is present, then the following federally mandated warning applies: This information has been disclosed to you from records protected by federal confidentiality rules (42 CFR part 2). The federal rules prohibit you from making any further disclosure of this information unless further disclosure is expressly permitted by the written consent of the person to whom it pertains or as otherwise permitted by 42 CFR part 2. A general authorization for the release of medical or other information is NOT sufficient for this purpose. The Federal rules restrict any use of the information to criminally investigate or prosecute any alcohol or drug abuse patient.The records that you are about to access may contain highly sensitive health information, the redisclosure of which is protected by Article 27-F of the [facility] Public Health law. If you continue you may have access to information: Regarding HIV / AIDS; Provided by facilities licensed or operated by the [facility] Office of Mental Health; or Provided by the [facility] Office for People With Developmental Disabilities. If such information is present, then the following [facility] mandated warning applies: This information has been disclosed to you from confidential records which are protected by state law. State law prohibits you from making any further disclosure of this information without the specific written consent of the person to whom it pertains, or as otherwise permitted by law. Any unauthorized further disclosure in violation of state law may result in a fine or senior living sentence or both. A general authorization for the release of medical or other information is NOT sufficient authorization for further disc losure. Encounters Encounter Providers Location Date Indications Data Source(s ) Outpatient Attender: DONALDO MEREDITH 02/04/2020 07:51:[address] [facility] Health Insurance Providers Payer name Policy type / Coverage type Policy ID Covered republican ID Covered republican's relationship to mathews Policy Mathews Plan Information EMEDNY [id number] SP [id number] [facility] MCDO [id number] SP [id number] [place] [id number] SP [id number] LENARD [id number] SP [id number] 300 MEDICAID [id number] SP [id number] SELF PAY ONLY [id number] SP [id number] MEDICAID M [id number] MEDICARE C [id number] S [id number] A SELF PAY ONLY UNAVAILABLE U[place] AILABLE [place] O [id number] S [id number] SELF PAY UNAVAILABLE SP UNAVAILA BLE LENARD [id number] SP [id number] Results ID Date Data Source [id number] 08/24/2020 03:30:00 PM EST [facility] Name Value Range Interpretation Code Description Data Angela rce(s) Supporting Document(s) SARS-CoV-2 (COVID 19) [facility] This lab was ordered by [facility] a nd reported by [facility]. Procedure
[2020-10-13 04:50] LABS: HEMATOCRIT 44.9 % (42.0-52.0); HEMOGLOBIN 14.5 g/dl (13.5-17.5); MEAN CORPUSCULAR HEMOGLOBIN 29.7 pg (27.0-33.0); MEAN CORPUSCULAR HGB CONC 32.3 g/dl (32.0-36.5); MEAN CORPUSCULAR VOLUME 91.8 fl (80.0-96.0); PLATELET COUNT, AUTOMATED 366 10^3/uL (150-450); RED BLOOD COUNT 4.89 10^6/uL (4.30-6.10); WHITE BLOOD COUNT 9.9 10^3/uL (4.0-10.0)
[2020-10-13 05:09] LABS: AMPHETAMINES LEVEL URINE NEGATIVE (NEGATIVE); BARBITURATES URINE NEGATIVE (NEGATIVE); BENZODIAZEPINES URINE NEGATIVE (NEGATIVE); CANNABINOIDS URINE POSITIVE (NEGATIVE); COCAINE METABOLITE URINE NEGATIVE (NEGATIVE); METHADONE URINE NEGATIVE (NEGATIVE); OPIATES URINE NEGATIVE (NEGATIVE); PHENCYCLIDINE URINE NEGATIVE (NEGATIVE)
[2020-10-13 05:55] LABS: ACETAMINOPHEN LEVEL < 2.0 UG/ML (10.0-30.0); ALT/SGPT 24 U/L (12-78); BILIRUBIN,DIRECT < 0.1 MG/DL (0.0-0.2); BILIRUBIN,TOTAL 0.1 MG/DL (0.2-1.0); BLOOD UREA NITROGEN 14 MG/DL (7-18); CALCIUM LEVEL 8.6 MG/DL (8.5-10.1); CARBON DIOXIDE LEVEL 23 MEQ/L (21-32); CHLORIDE LEVEL 113 MEQ/L (98-107); CREATININE FOR GFR 0.89 MG/DL (0.70-1.30); ETHYL ALCOHOL (ETHANOL) 0.126 % (0.000-0.010); GLOMERULAR FILTRATION RATE > 60.0 (>60); GLUCOSE, FASTING 101 MG/DL (70-100); SALICYLATE LEVEL 3.3 MG/DL (5.0-30.0); SODIUM LEVEL 144 MEQ/L (136-145); TOTAL PROTEIN 6.8 GM/DL (6.4-8.2)
[2020-10-13 08:32] LABS: RSV AMPLIFICATION NEGATIVE (NEGATIVE)
--- OUTSIDE RECORDS SUMMARY | 2020-10-13 09:17 | CCD ---
Author Author [facility] Organization [facility] Address Unknown Phone Unavailable Care Team Providers Care Handle Maker Name Role Phone Quiana Bhatt ELECTRICAL TRANSMISSION ENGINEER Unavailable Unavailable Re-disclosure Warning The records that [...] is protected by Article 27-F of the [facility] Public Health law. If you continue you may have access to information: Regarding HIV / AIDS; Provided by facilities licensed or operated by the [facility] Office of Mental Health; or Provided by the [facility] Office for People With Developmental Disabilities. If such information is present, then the following [facility] mandated warning applies: This information has been [...] law may result in a fine or assisted sentence or both. A general authorization for the release of medical or other information is NOT sufficient authorization for further disc losure. Encounters Encounter Providers Location Date Indications Data Source(s ) Outpatient Attender: DONALDO MEREDITH 02/04/2020 07:51:46 P M EDT [facility] Health Insurance Providers Payer name Policy type / Coverage type Policy ID Covered constitution party ID Covered constitution party's relationship to mathews Policy Mathews Plan Information [facility]AN [facility] [id number] SP [id number] EMEDNY [id number] SP [id number] [place] [id number] SP [id number] [facility] [id number] SP [id number] 300 MEDICAID [id number] SP [id number] SELF PAY ONLY [id number] SP [id number] MEDICAID M [id number] S [id number] MEDICARE C [id number] S [id number] A SELF PAY ONLY UNAVAILABLE UNA[place] AILABLE [place] O [id number] S [id number] SELF PAY UNAVAILABLE SP UNAVAILA BLE LENARD [id number] SP [id number] Results ID Date Data Source [id number] 08/24/2020 03:30:00 PM EST [facility] Name Value Range Interpretation Code Description Data Angela rce(s) Supporting Document(s) SARS-CoV-2 (COVID 19) [facility] This lab was ordered by [facility] a nd reported by [facility]. Procedure
[2020-10-13] MEDS ORDERED: MAALOX 30 ML SUSP *UDC PO PRN (14:30)
[2020-10-13] MEDS ORDERED: ACETAMINOPHEN TAB 650MG DOSE (2X325MG) PO PRN (14:30)
[2020-10-13] MEDS ORDERED: MOM 30ML SUSPENSION UDC PO PRN (14:30)
--- OUTSIDE RECORDS SUMMARY | 2020-10-13 14:50 | CCD ---
Author Author [facility] Organization [facility] Address Unknown Phone Unavailable Care Team Providers Care Forge Shop Machine Repairer Name Role Phone Quiana Bhatt TELEPHONE SALES REPRESENTATIVE Unavailable Unavailable Re-disclosure Warning The records that [...] is protected by Article 27-F of the [facility] Public Health law. If you continue you may have access to information: Regarding HIV / AIDS; Provided by facilities licensed or operated by the [facility] Office of Mental Health; or Provided by the [facility] Office for People With Developmental Disabilities. If such information is present, then the following [facility] mandated warning applies: This information has [...] law may result in a fine or fdc sentence or both. A general authorization for the release of medical or other information is NOT sufficient authorization for further disc losure. Encounters Encounter Providers Location Date Indications Data Source(s ) Outpatient Attender: DONALDO MEREDITH 02/04/2020 07:51:46 P M EDT [facility] Health Insurance Providers Payer name Policy type / Coverage type Policy ID Covered libertarian ID Covered libertarian's relationship to mathews Policy Mathews Plan Information [facility]AN [facility] [id number] SP [id number] [facility] COMM[facility]AN [facility] [id number] SP [id number] EMEDNY [id number] SP [id number] [facility] [id number] SP [id number] LENARD [id number] SP [id number] 300 MEDICAID [id number] SP [id number] SELF PAY ONLY [id number] SP [id number] MEDICAID M [id number] S [id number] MEDICARE C [id number] S [id number] A SELF PAY ONLY UNAVAILABLE UNAV AILABLE [place]ARE [place] O [id number] S [id number] SELF PAY UNAVAILABLE SP UNAVAILA BLE LENARD [id number] SP [id number] Results ID Date Data Source [id number] 08/24/2020 03:30:00 PM EST [facility] Name Value Range Interpretation Code Description Data Angela rce(s) Supporting Document(s) SARS-CoV-2 (COVID 19) [facility] This lab was ordered by [facility] a nd reported by [facility]. Procedure
[2020-10-13 17:44] VITALS: BP 118/76
[2020-10-14 06:13] VITALS: BP 137/74
--- NOTE | 2020-10-14 12:28 | HPEPDOC ---
[facility] Medical History & Physical Date of Admission Oct 13, 2020 Date of Service: Oct 14, 2020 History and Physical CHIEF COMPLAINT: routine medical exam HISTORY OF PRESENT ILLNESS: 45 y/o M w pmh significant for factor V leiden mutation, anxiety, depression, suicide ideation, cervical DDD, substance abuse admitted to [facility] for depression, now being evaluated fro a routine medical examination.Pt refused ROS. "I'm alright. Nothing is bothering me. Leave me alone." PAST MEDICAL HISTORY: factor V leiden mutation, anxiety, depression, suicide ideation, cervical DDD, substance abuse PAST SURGICAL HISTORY: left eye foreign body SOCIAL HISTORY: single, 2 children, unemployed 1ppd smoking, h/o methamphetamine, marijuana use s/p rehab at [facility]. FAMILY HISTORY: Father: alive and well Mother:alive and well ALLERGIES: Please see below. REVIEW OF SYSTEMS: refused HOME MEDICATIONS: Please see below. PHYSICAL EXAMINATION: VITAL SIGNS: see below refused exam LABORATORY DATA: See below. MICROBIOLOGY: Please see below. ASSESSMENT: 45 y/o M w pmh significant for factor V deficiency, anxiety, depression, suicide ideation, cervical DDD, substance abuse admitted to [facility], now being evaluated fro a routine medical examination. Factor V leiden mutation : denies prior history of dvt/pe. no c/o. anxiety/depression: managed by psychiatrist substance abuse: counselling provided Cervical DDD: PRN pain meds Hospitalist signing off . pls. call [facility] for a new consult if new acute medical issues arise. Vital Signs Vital Signs Date Time Temp Pulse Resp B/P (MAP) Pulse Ox O2 Delivery O2 Flow Rate FiO2 10/14/20 06:13 98.1 55 20 137/74 (95) 10/13/20 17:44 Room Air 10/13/20 13:03 99 Home Medications No Active Prescriptions or Reported Meds Allergies Coded Allergies: quetiapine (Verified Allergy, Intermediate, insomnia, 08/09/19) trazodone (Verified Allergy, Intermediate, insomnia and restless leg, 08/09/19) Penicillins (Verified Allergy, Unknown, 08/09/19) A-FIB/CHADSVASC A-FIB History Current/History of A-Fib/PAF?: No Current PO Anticoag Therapy: No Age/Risk Factor Scoring CHADSVASC: CHADSVASC Response (Comments) Value Age Risk Factor Age < 65 years old 0 Gender Risk Factor Male 0 Hx of CHF No 0 Hx of HTN No 0 Hx of Stroke/TIA/or VTE No 0 Hx of Diabetes No 0 Hx of Vascular Disease No 0 Total 0 Treatment Treatment ordered: NONE BASIM COLLAZO MD Oct 14, 2020 12:11
[2020-10-14 16:01] VITALS: BP 124/84
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
[2020-10-15 06:33] VITALS: BP 130/66
--- NOTE | 2020-10-15 13:36 | MHIPNPDOC ---
[facility] Progress Note Progress Note DATE OF SERVICE: 10/15/20 HISTORY: 45-year-old male with a history of depression and substance abuse. VITAL SIGNS: See below. NEW TEST RESULTS:. Toxicology positive for marijuana and alcohol. CURRENT MEDICATIONS: See below. MENTAL STATUS EXAMINATION: Patient is a 45-year-old male-year old male, who is complaining of chronic thoughts of wanting to . Speech: Is quiet. Language skills are, normal. Thought processes including: Focused on wanting to . Thought content: Sad. Abstract reasoning, and computation: Able to abstract. Description of associations: Loose associations. Description of abnormal or psychotic thoughts:, No psychotic thoughts. Judgment: Poor Insight:, Poor. Orientation: 3. Recent and remote memory: Intact. Attention span and concentration: Fair. Language:. No difficulties. Fund of knowledge: Full. Mood: Sad. Affect: Downcast. DIAGNOSES: 1. Major depressive illness, recurrent. 2.. Dysthymic personality. 3., Substance abuse. ASSESSMENT: 45-year-old male, with 13-year-old daughter and possible new baby by another woman with poor self-esteem a job failure in general self loathing MANAGEMENT PLAN: At this point, patient does not want a medication. He was able to discuss deep interest in music and guitars. I am hoping he will be more amenable to medication which might include Cymbalta, which Dr. Henao used on his last visit. TIME SPENT:, 35 minutes. Vital Signs Vital Signs Date Time Temp Pulse Resp B/P (MAP) Pulse Ox O2 Delivery O2 Flow Rate FiO2 10/15/20 06:33 98.4 52 18 130/66 (87) 98 Room Air Current Medications Current Medications Medications (Trade) Dose Ordered Sig/Mike Route PRN Reason Start Time Stop Time Status Last Admin Dose Admin Acetaminophen (Tylenol Tab) 650 mg Q6HP PRN PO HEADACHE or DISCOMFORT 10/13/20 14:30 Al Hydrox/Mg Hydrox/Simethicone (Mylanta) 30 ml Q4HP PRN PO HEARTBURN/INDIGESTION 10/13/20 14:30 Home Med (Med Rec Complete!) ASDIRECTED XX 10/13/20 12:00 10/13/20 11:56 DC Magnesium Hydroxide (Milk Of Magnesia) 30 ml DAILYPRN PRN PO CONSTIPATION 10/13/20 14:30 Olanzapine (ZyPREXA ZYDIS) 5 mg Q6HP PRN PO AGITATION 10/13/20 14:30 Allergies Coded Allergies: quetiapine (Verified Allergy, Intermediate, insomnia, 08/09/19) trazodone (Verified Allergy, Intermediate, insomnia and restless leg, 08/09/19) Penicillins (Verified Allergy, Unknown, 08/09/19) PREMA GARDNER MD Oct 15, 2020 13:36
[2020-10-15] MEDS ORDERED: NAPROXEN 250 MG TAB PO PRN (14:45)
[2020-10-15] MEDS ORDERED: IBUPROFEN 200MG TAB PO PRN (14:45)
[2020-10-15] MEDS ORDERED: diphenhydrAMINE 50MG CAP PO PRN (15:00)
[2020-10-15] MEDS: hydrOXYzine 25 MG TAB PO SCH ×2 (15:56→20:48)
[2020-10-15 19:06] VITALS: BP 140/86
[2020-10-16 06:22] VITALS: BP 129/78
[2020-10-16] MEDS: VENLAFAXINE **XR** 75MG CAPSULE PO SCH (08:38)
[2020-10-16] MEDS: hydrOXYzine 25 MG TAB PO SCH ×3 (08:38→20:22)
--- NOTE | 2020-10-16 14:18 | MHIPNPDOC ---
[facility] Progress Note Progress Note DATE OF SERVICE: 10/16/20 HISTORY: Duran is a 45-year-old male, , who was had repetitive admissions for severe depression. Today his mood seems better. He was placed on Effexo this morning and was given Vistaril for anxiety during the day. Today, he discussed guitars, music and says he is trying to suppress any depressive thoughts VITAL SIGNS: See below. NEW TEST RESULTS: None. CURRENT MEDICATIONS: See below. MENTAL STATUS EXAMINATION: Patient is a 45-year old male, who is, admitted for severe depression. Speech: Is improved and normal. Today. Language skills are, intact. Thought processes including: Suicidal thoughts and wanting to kill self on admission. Thought content: Today suppressing any negative thoughts. Abstract reasoning, and computation: Able to abstract and compute. Description of associations: Loose associations. Description of abnormal or psychotic thoughts:. No psychotic thought. Today. Judgment:, Fair. Insight: Poor. Orientation: 3. Recent and remote memory:. No disturbance. Attention span and concentration: Needs to be evaluated. Language:. No disturbance. Fund of knowledge: Full. Mood: Neutral. Affect: bright. DIAGNOSES: 1. Major depression, recurrent. 2.. Rule out substance abuse. 3., Numerous family stressors. ASSESSMENT:. Patient seems improved today from admission, and his previous adm ission under the care of Dr. Oliveros also showed improvement, but patient was in significant depression. With much suicidal thought. On admission. So the question will be what brought about the recurrence and if patient can be brought to get decent follow-up MANAGEMENT PLAN: As above. Will titrate Effexor. TIME SPENT: 35 minutes. Vital Signs Vital Signs Date Time Temp Pulse Resp B/P (MAP) Pulse Ox O2 Delivery O2 Flow Rate FiO2 10/16/20 06:22 98.2 59 16 129/78 (95) 100 Room Air Current Medications Current Medications Medications (Trade) Dose Ordered Sig/Mike Route PRN Reason Start Time Stop Time Status Last Admin Dose Admin Acetaminophen (Tylenol Tab) 650 mg Q6HP PRN PO HEADACHE or DISCOMFORT 10/13/20 14:30 Al Hydrox/Mg Hydrox/Simethicone (Mylanta) 30 ml Q4HP PRN PO HEARTBURN/INDIGESTION 10/13/20 14:30 Diphenhydramine HCl (Benadryl) 50 mg QHSP PRN PO INSOMNIA 10/15/20 15:00 Home Med (Med Rec Complete!) ASDIRECTED XX 10/13/20 12:00 10/13/20 11:56 DC Hydroxyzine HCl (Atarax) 25 mg TID PO 10/15/20 16:00 10/16/20 08:38 Ibuprofen (Advil) 200 mg Q4HP PRN PO PAIN 10/15/20 14:45 10/15/20 15:03 DC Magnesium Hydroxide (Milk Of Magnesia) 30 ml DAILYPRN PRN PO CONSTIPATION 10/13/20 14:30 Naproxen (Naprosyn) 500 mg BIDP PRN PO PAIN 10/15/20 14:45 10/15/20 15:21 Olanzapine (ZyPREXA ZYDIS) 5 mg Q6HP PRN PO AGITATION 10/13/20 14:30 Venlafaxine HCl (Effexor Xr) 75 mg DAILY PO 10/16/20 09:00 10/16/20 08:38 Allergies Coded Allergies: quetiapine (Verified Allergy, Intermediate, insomnia, 08/09/19) trazodone (Verified Allergy, Intermediate, insomnia and restless leg, 08/09/19) Penicillins (Verified Allergy, Unknown, 08/09/19) PREMA GARDNER MD Oct 16, 2020 14:18
[2020-10-16 17:02] VITALS: BP 129/76
[2020-10-16] MEDS: OLANZapine ORAL DISINTEGRATING TAB 5MG PO PRN (20:45)
[2020-10-17 07:03] VITALS: BP 119/78
[2020-10-17] MEDS: hydrOXYzine 25 MG TAB PO SCH ×3 (08:49→20:34)
[2020-10-17] MEDS: VENLAFAXINE **XR** 75MG CAPSULE PO SCH (08:49)
--- NOTE | 2020-10-17 15:29 | MHIPNPDOC ---
[facility] Progress Note Progress Note DATE OF SERVICE: 10/17/20 HISTORY: Mr. Sweeney discussed more in detail about his life. Apparently, there've been many episodes of homelessness, although he did have a girlfriend. He had a home with once, which burned and he moved with a girl to [place] and they had a home for a while. Other descriptions by him include many episodes of homelessness and presently now he is "staying with friends". He has frequently lived out of backpacks and statement tense and homeless areas. He states she's had a hard time keeping a job takes when he has a job. His depression and a nxiety kick in and he screws up or "gets fired. In addition, at times he just doesn't show up at work and he states she's had good jobs. Patient describes although without norm is detail that he used to drink a lot. He still is drinking even though he's been to AA and "all that BS". He also smokes dope. He states in order to develop the courage to come here this visit, he drank.. VITAL SIGNS: See below. NEW TEST RESULTS: None. CURRENT MEDICATIONS: See below. MENTAL STATUS EXAMINATION: Patient is a 45-year old male, who is, suffers from episodic depression with numerous episodes of homelessness, alcohol and marijuana use. Patient also at times sold drugs. Speech: Is. Normal. Language skills are normal. Thought processes including: Description of his life's failures. Thought content: As above. Abstract reasoning, and computation: Able to abstract. Description of associations:. No loose associations. Description of abnormal or psychotic thoughts:. No psychotic thought. Judgment: Poor Insight: Fair. Orientation: 3. Recent and remote memory: Intact. Attention span and concentration: Intact. Language:. No abnormalities. Fund of knowledge:. Full. Mood: Euthymic. Affect:, Congruent. DIAGNOSES: 1., Depression, anxiety. 2., Alcohol and drug abuse. 3. None. ASSESSMENT:. Patient states she is calmer with use of Vistaril, but long history of homelessness and alcoholism seemed to be poorly prognostic for this patient's global improvement MANAGEMENT PLAN:. Continue therapy. Continue medication. We will discuss housing issues with discharge planners. TIME SPENT: 35 minutes. Vital Signs Vital Signs Date Time Temp Pulse Resp B/P (MAP) Pulse Ox O2 Delivery O2 Flow Rate FiO2 10/17/20 11:09 Room Air 10/17/20 07:03 97.3 51 16 119/78 (92) 97 Current Medications Current Medications Medications (Trade) Dose Ordered Sig/Mike Route PRN Reason Start Time Stop Time Status Last Admin Dose Admin Acetaminophen (Tylenol Tab) 650 mg Q6HP PRN PO HEADACHE or DISCOMFORT 10/13/20 14:30 Al Hydrox/Mg Hydrox/Simethicone (Mylanta) 30 ml Q4HP PRN PO HEARTBURN/INDIGESTION 10/13/20 14:30 Diphenhydramine HCl (Benadryl) 50 mg QHSP PRN PO INSOMNIA 10/15/20 15:00 Home Med (Med Rec Complete!) ASDIRECTED XX 10/13/20 12:00 10/13/20 11:56 DC Hydroxyzine HCl (Atarax) 25 mg TID PO 10/15/20 16:00 10/17/20 08:49 Ibuprofen (Advil) 200 mg Q4HP PRN PO PAIN 10/15/20 14:45 10/15/20 15:03 DC Magnesium Hydroxide (Milk Of Magnesia) 30 ml DAILYPRN PRN PO CONSTIPATION 10/13/20 14:30 Naproxen (Naprosyn) 500 mg BIDP PRN PO PAIN 10/15/20 14:45 10/15/20 15:21 Olanzapine (ZyPREXA ZYDIS) 5 mg Q6HP PRN PO AGITATION 10/13/20 14:30 10/16/20 20:45 Venlafaxine HCl (Effexor Xr) 75 mg DAILY PO 10/16/20 09:00 10/17/20 15:10 DC 10/17/20 08:49 Venlafaxine HCl (Effexor Xr) 150 mg DAILY PO 10/18/20 09:00 Allergies Coded Allergies: quetiapine (Verified Allergy, Intermediate, insomnia, 08/09/19) trazodone (Verified Allergy, Intermediate, insomnia and restless leg, 08/09/19) Penicillins (Verified Allergy, Unknown, 08/09/19) PREMA GARDNER MD Oct 17, 2020 15:29
[2020-10-17 16:05] VITALS: BP 136/88
[2020-10-17] MEDS: OLANZapine ORAL DISINTEGRATING TAB 5MG PO PRN (20:34)
[2020-10-18 06:22] VITALS: BP 136/71
[2020-10-18] MEDS: hydrOXYzine 25 MG TAB PO SCH ×3 (08:54→20:29)
[2020-10-18] MEDS: VENLAFAXINE **XR** 75MG CAPSULE PO SCH (08:54)
[2020-10-18 16:09] VITALS: BP 139/90
[2020-10-19 06:56] VITALS: BP 132/79
[2020-10-19] MEDS: hydrOXYzine 25 MG TAB PO SCH ×3 (08:14→20:19)
[2020-10-19] MEDS: VENLAFAXINE **XR** 75MG CAPSULE PO SCH (08:14)
--- NOTE | 2020-10-19 13:48 | MHIPNPDOC ---
[facility] Progress Note Progress Note DATE OF SERVICE: 10/19/20 HISTORY: 45-year-old man with some history of substance abuse, homelessness, job loss, relationship loss and general hopelessness. VITAL SIGNS: See below. NEW TEST RESULTS: None. CURRENT MEDICATIONS: See below. MENTAL STATUS EXAMINATION: Patient is a 45-year old male, who is willing to live in [facility] apartment or hotel and arranging follow-up appointments. He is presently on Effexor and Vistaril which he claims are effective. Speech: Is. Normal. Language skills are intact. Thought processes including: Intact. Patient is bored and wishing for discharge. Thought content:. Focused on discharge. Abstract reasoning, and computation: Able to abstract. Description of associations: Loose associations. Description of abnormal or psychotic thoughts:. No psychotic thought noted. Judgment:. Poor. Insight: Good. Orientation: 3. Recent and remote memory: Intact. Attention span and concentration: Adequate. Language:. No disturbance. Fund of knowledge:. Full. Mood: Euthymic. Affect: Irritable. DIAGNOSES: 1., Dysthymic disorder, rule out major depression. 2. Inadequate personality traits. 3.. Substance abuse. ASSESSMENT: 45-year-old male who is generally in a homeless and seems to be unable to hold a job or a permanent living situation MANAGEMENT PLAN: Will be discharged to [facility] with follow-up plan arranged by facilities planner. TIME SPENT: 35 minutes. Vital Signs Vital Signs Date Time Temp Pulse Resp B/P (MAP) Pulse Ox O2 Delivery O2 Flow Rate FiO2 10/19/20 06:56 97.6 55 14 132/79 (96) 97 Room Air Current Medications Current Medications Medications (Trade) Dose Ordered Sig/Mike Route PRN Reason Start Time Stop Time Status Last Admin Dose Admin Acetaminophen (Tylenol Tab) 650 mg Q6HP PRN PO HEADACHE or DISCOMFORT 10/13/20 14:30 Al Hydrox/Mg Hydrox/Simethicone (Mylanta) 30 ml Q4HP PRN PO HEARTBURN/INDIGESTION 10/13/20 14:30 Diphenhydramine HCl (Benadryl) 50 mg QHSP PRN PO INSOMNIA 10/15/20 15:00 10/17/20 20:34 Home Med (Med Rec Complete!) ASDIRECTED XX 10/13/20 12:00 10/13/20 11:56 DC Hydroxyzine HCl (Atarax) 25 mg TID PO 10/15/20 16:00 10/19/20 08:14 Ibuprofen (Advil) 200 mg Q4HP PRN PO PAIN 10/15/20 14:45 10/15/20 15:03 DC Magnesium Hydroxide (Milk Of Magnesia) 30 ml DAILYPRN PRN PO CONSTIPATION 10/13/20 14:30 Naproxen (Naprosyn) 500 mg BIDP PRN PO PAIN 10/15/20 14:45 10/15/20 15:21 Olanzapine (ZyPREXA ZYDIS) 5 mg Q6HP PRN PO AGITATION 10/13/20 14:30 10/17/20 20:34 Venlafaxine HCl (Effexor Xr) 75 mg DAILY PO 10/16/20 09:00 10/17/20 15:10 DC 10/17/20 08:49 Venlafaxine HCl (Effexor Xr) 150 mg DAILY PO 10/18/20 09:00 10/19/20 08:14 Allergies Coded Allergies: quetiapine (Verified Allergy, Intermediate, insomnia, 08/09/19) trazodone (Verified Allergy, Intermediate, insomnia and restless leg, 08/09/19) Penicillins (Verified Allergy, Unknown, 08/09/19) PREMA GARDNER MD Oct 19, 2020 13:48
[2020-10-19 18:14] VITALS: BP 135/81
[2020-10-19] MEDS: OLANZapine ORAL DISINTEGRATING TAB 5MG PO PRN (20:19)
[2020-10-20 06:00] VITALS: BP 135/78
--- NOTE | 2020-10-20 07:16 | MHDSPDOC ---
[facility] Discharge Summary Discharge Summary DATE OF ADMISSION: Oct 13, 2020 at 14:28 DATE OF DISCHARGE: Sep DISCHARGE DIAGNOSES: 1. Major depressive illness. 2., Substance abuse. REASON FOR ADMISSION:, Depression with suicidal thought CONSULTANTS INVOLVED: None TREATMENT AND PROGRESS ON THE UNIT : Patient improved with Effexor as he improved with previous antidepressants. However, he lives without permanent housing. Addition he has no follow-up. Patient has numerous children from different women and is unsuccessful in keeping jobs or permanent housing. HOSPITAL COURSE: As in his last admission, she improved in mood with the use of Effexor and Vistaril DISCHARGE ASSESSMENT: Major depressive disorder with substance abuse and aspects of inadequate personality MENTAL STATUS EXAMINATION ON DISCHARGE: Patient is a 45-year old male, who is being discharged to [facility] with psychiatric follow-up. Speech is normal. Language skills are intact. Thought processes including: Boredom and new patients to leave. Thought content: As above. Abstract reasoning, and computation: Able to abstract. Description of associations:. No loose associations. Description of abnormal or psychotic thoughts: No psychotic thoughts. Judgment: Poor Insight: Poor Orientation to 3. Recent and remote memory: Intact. Attention span and concentration: Intact. Language:. No disturbance. Fund of knowledge: Full. Mood:, Euthymic. Affect: Congruent. MEDICATIONS ON DISCHARGE: -Effexor were 150 mg for depression. -, Vistaril for, anxiety. PLAN/FOLLOWUP ARRANGEMENTS: [facility] and psychotherapy. Psychiatric follow-up as per community planner. The amount of time spent in the coordination of care for this patient was approximately 35 minutes. Vital Signs/I&Os Vital Signs Date Time Temp Pulse Resp B/P (MAP) Pulse Ox O2 Delivery O2 Flow Rate FiO2 10/19/20 18:14 97.8 85 16 135/81 (99) 10/19/20 06:56 97 Room Air Medications No Active Prescriptions or Reported Meds Allergies Coded Allergies: quetiapine (Verified Allergy, Intermediate, insomnia, 08/09/19) trazodone (Verified Allergy, Intermediate, insomnia and restless leg, 1 10/10/18) Penicillins (Verified Allergy, Unknown, 08/09/19) PREMA GARDNER MD Oct 20, 2020 07:16
[2020-10-20] MEDS: hydrOXYzine 25 MG TAB PO SCH (08:15)
[2020-10-20] MEDS: VENLAFAXINE **XR** 75MG CAPSULE PO SCH (08:15)
[2020-10-20] MEDS ORDERED: HYDR-3363 PO (10:22)
[2020-10-20] MEDS ORDERED: VENL75CA47 PO (10:22)
[2020-10-20] MEDS: OLANZapine ORAL DISINTEGRATING TAB 5MG PO PRN (11:03)
== END 2020-10-20 11:30 | disposition home or self-care (01) | DRG 754 ==
LOC: M ED 04:09 → M ED INP 14:28 → M PSY 17:40
PROVIDERS: ADMIT Psychiatry & Neurology Psychiatry; ATTEND Psychiatry & Neurology Child & Adolescent Psychiatry
DX: F32.9 Major depressive disorder, single episode, unspecified (principal); D68.2 Hereditary deficiency of other clotting factors; R45.851 Suicidal ideations; Z88.0 Allergy status to penicillin; Z88.8 Allergy status to other drugs, medicaments and biological substances; F41.9 Anxiety disorder, unspecified; F17.200 Nicotine dependence, unspecified, uncomplicated; M50.90 Cervical disc disorder, unspecified, unspecified cervical region

== ENCOUNTER 2021-08-17 16:04 | Inpatient (IN) | payer MEDICAID ==
[~2021-08-17] VITALS: Ht 188 cm
[~2021-08-17 16:04] MED LIST changes: -HALO5TA PO; +HALO5TAB33 PO; +HYDR-3363 PO; +VENL75CA47 PO
[2021-08-17 16:54] LABS: AMPHETAMINES LEVEL URINE NEGATIVE (NEGATIVE); BARBITURATES URINE NEGATIVE (NEGATIVE); BENZODIAZEPINES URINE NEGATIVE (NEGATIVE); CANNABINOIDS URINE POSITIVE (NEGATIVE); COCAINE METABOLITE URINE NEGATIVE (NEGATIVE); METHADONE URINE NEGATIVE (NEGATIVE); OPIATES URINE NEGATIVE (NEGATIVE); PHENCYCLIDINE URINE NEGATIVE (NEGATIVE)
[2021-08-17 16:58] LABS: HEMATOCRIT 43.8 % (42.0-52.0); HEMOGLOBIN 14.6 g/dl (13.5-17.5); MEAN CORPUSCULAR HEMOGLOBIN 29.8 pg (27.0-33.0); MEAN CORPUSCULAR HGB CONC 33.3 g/dl (32.0-36.5); MEAN CORPUSCULAR VOLUME 89.4 fl (80.0-96.0); PLATELET COUNT, AUTOMATED 438 10^3/uL (150-450)
[2021-08-17 17:31] LABS: ACETAMINOPHEN LEVEL < 2.0 UG/ML (10.0-30.0); ALBUMIN 3.9 GM/DL (3.2-5.2); ALT/SGPT 24 U/L (12-78); BILIRUBIN,DIRECT 0.1 MG/DL (0.0-0.2); BILIRUBIN,TOTAL 0.4 MG/DL (0.2-1.0); BLOOD UREA NITROGEN 14 MG/DL (7-18); CALCIUM LEVEL 9.1 MG/DL (8.5-10.1); CARBON DIOXIDE LEVEL 29 MEQ/L (21-32); CHLORIDE LEVEL 110 MEQ/L (98-107); CREATININE FOR GFR 1.05 MG/DL (0.70-1.30); ETHYL ALCOHOL (ETHANOL) < 0.003 % (0.000-0.010); GLOMERULAR FILTRATION RATE > 60.0 (>60); GLUCOSE, FASTING 109 MG/DL (70-100); POTASSIUM SERUM 4.6 MEQ/L (3.5-5.1); SALICYLATE LEVEL 2.9 MG/DL (5.0-30.0); SODIUM LEVEL 142 MEQ/L (136-145); THYROID STIMULATING HORMONE 0.656 uIU/ML (0.358-3.740); TOTAL PROTEIN 7.1 GM/DL (6.4-8.2)
[2021-08-17 17:45] LABS: RSV AMPLIFICATION NEGATIVE (NEGATIVE)
[2021-08-17] MEDS ORDERED: HOME MED LIST COMPLETE! XX SCH (22:05)
[2021-08-18] MEDS ORDERED: hydrOXYzine 25 MG TAB PO PRN (11:35)
[2021-08-18] MEDS ORDERED: MAALOX 30 ML SUSP *UDC PO PRN (11:35)
[2021-08-18] MEDS ORDERED: traZODone 50 MG TAB PO PRN (11:35)
[2021-08-18] MEDS ORDERED: ACETAMINOPHEN TAB 650MG DOSE (2X325MG) PO PRN (11:35)
[2021-08-18] MEDS ORDERED: MOM 30ML SUSPENSION UDC PO PRN (11:35)
[2021-08-18] MEDS ORDERED: LORazepam 2 MG/ML VIAL IM ONE (14:20)
[2021-08-18] MEDS ORDERED: HALOPERIDOL 5MG/ML VIAL (J1630 PER 1) IM ONE (14:20)
[2021-08-18] MEDS ORDERED: diphenhydrAMINE 50MG/ML VIAL (J1200) IM ONE (14:20)
[2021-08-18 14:35] VITALS: BP 120/68
[2021-08-19] MEDS ORDERED: OLANZapine ORAL DISINTEGRATING TAB 5MG PO PRN (14:25)
[2021-08-20] MEDS: VENLAFAXINE 25 MG TAB PO SCH (09:00)
[2021-08-21 06:48] VITALS: BP 136/81
[2021-08-21 06:56] VITALS: BP 136/81
[2021-08-21] MEDS: VENLAFAXINE 25 MG TAB PO SCH (09:00)
[2021-08-21 18:43] VITALS: BP 129/84
[2021-08-22 06:17] VITALS: BP 135/68
[2021-08-22] MEDS: VENLAFAXINE 25 MG TAB PO SCH (09:00)
[2021-08-22 15:34] VITALS: BP 142/80
[2021-08-23 07:01] VITALS: BP 118/69
[2021-08-23] MEDS: VENLAFAXINE 25 MG TAB PO SCH (09:00)
== END 2021-08-23 09:56 | disposition home or self-care (01) | DRG 754 ==
LOC: M ED 16:04 → M ED INP 08-18 11:33 → M PSY 08-18 14:08
PROVIDERS: ADMIT Student in an Organized Health Care Education/Training Program; ATTEND Psychiatry & Neurology Psychiatry
DX: F32.9 Major depressive disorder, single episode, unspecified (principal); Z78.1 Physical restraint status; U07.1 COVID-19; R45.851 Suicidal ideations; Z62.810 Personal history of physical and sexual abuse in childhood; Z56.0 Unemployment, unspecified; Z59.1 Inadequate housing; Z63.8 Other specified problems related to primary support group; F12.10 Cannabis abuse, uncomplicated; D68.2 Hereditary deficiency of other clotting factors; Z88.0 Allergy status to penicillin; Z88.8 Allergy status to other drugs, medicaments and biological substances; F41.9 Anxiety disorder, unspecified; M50.90 Cervical disc disorder, unspecified, unspecified cervical region; Z91.51 Personal history of suicidal behavior; F17.210 Nicotine dependence, cigarettes, uncomplicated; F60.9 Personality disorder, unspecified

== ENCOUNTER 2022-04-21 09:29 | Emergency (ER) | payer MEDICAID ==
[~2022-04-21] VITALS: Ht 188 cm; Wt 84.8 kg
[2022-04-21 09:30] VITALS: BP 129/73
== END 2022-04-21 10:53 | disposition left against medical advice (07) ==
LOC: M ED 09:29
DX: Z53.21 Procedure and treatment not carried out due to patient leaving prior to being seen by health care provider (principal)

== ENCOUNTER 2023-04-08 13:31 | Emergency (ER) | payer MEDICAID, OTHER ==
[~2023-04-08] VITALS: Ht 188 cm; Wt 69.7 kg
[2023-04-08 13:32] VITALS: BP 125/81; TEMP 96.7; O2SAT 100
[2023-04-08] MEDS ORDERED: CLINDAMYCIN 150MG CAPSULE PO ONE (18:30)
[2023-04-08] MEDS ORDERED: KETOROLAC 60MG 2ML VIAL IM ONE (18:30)
[2023-04-08] MEDS ORDERED: CLEO300C2 PO (18:34)
[2023-04-08] MEDS ORDERED: HYDR-3713 PO (18:34)
== END 2023-04-08 18:44 | disposition home or self-care (01) ==
LOC: M ED 13:31
DX: K04.7 Periapical abscess without sinus (principal); K03.81 Cracked tooth; M51.36 Other intervertebral disc degeneration, lumbar region; Z88.0 Allergy status to penicillin; Z88.8 Allergy status to other drugs, medicaments and biological substances; F41.9 Anxiety disorder, unspecified; F32.A Depression, unspecified
CPT/HCPCS: 96372; 99283; J1885

== ENCOUNTER 2023-04-26 11:34 | Inpatient (IN) | payer MEDICAID, OTHER ==
[~2023-04-26] VITALS: Ht 188 cm; Wt 76.3 kg
[~2023-04-26 11:34] MED LIST changes: +HYDR-3713 PO
[2023-04-26] MEDS ORDERED: MED REC IN PROGRESS XX SCH (12:15)
[2023-04-26 12:40] LABS: HEMATOCRIT 41.8 % (42.0-52.0); HEMOGLOBIN 13.8 g/dl (13.5-17.5); MEAN CORPUSCULAR HEMOGLOBIN 29.9 pg (27.0-33.0); MEAN CORPUSCULAR VOLUME 90.5 fl (80.0-96.0); PLATELET COUNT, AUTOMATED 407 10^3/uL (150-450); RED BLOOD COUNT 4.62 10^6/uL (4.30-6.10); WHITE BLOOD COUNT 8.4 10^3/uL (4.0-10.0)
[2023-04-26] MEDS ORDERED: HOME MED LIST COMPLETE! XX SCH (12:40)
[2023-04-26 13:07] LABS: AMPHETAMINES LEVEL URINE NEGATIVE (NEGATIVE); BARBITURATES URINE NEGATIVE (NEGATIVE); BENZODIAZEPINES URINE NEGATIVE (NEGATIVE); COCAINE METABOLITE URINE NEGATIVE (NEGATIVE); METHADONE URINE NEGATIVE (NEGATIVE); OPIATES URINE NEGATIVE (NEGATIVE); PHENCYCLIDINE URINE NEGATIVE (NEGATIVE)
[2023-04-26 13:10] LABS: CANNABINOIDS URINE POSITIVE (NEGATIVE); ETHYL ALCOHOL (ETHANOL) < 0.003 % (0.000-0.010)
[2023-04-26 13:12] LABS: ACETAMINOPHEN LEVEL < 2.0 UG/ML (10.0-20.0); ALBUMIN 3.8 G/DL (3.2-5.2); ALKALINE PHOSPHATASE 44 U/L (46-116); ALT/SGPT 57 U/L (7.0-40); AST/SGOT 21 U/L (<34); BILIRUBIN,DIRECT 0.1 MG/DL (<0.4); BILIRUBIN,TOTAL 0.3 MG/DL (0.3-1.2); BLOOD UREA NITROGEN 23 MG/DL (9-23); CALCIUM LEVEL 9.2 MG/DL (8.5-10.1); CARBON DIOXIDE LEVEL 31 MMOL/L (20-31); CHLORIDE LEVEL 106 MMOL/L (98-107); CREATININE FOR GFR 1.09 MG/DL (0.70-1.30); GLOMERULAR FILTRATION RATE > 60.0 (>60); GLUCOSE, FASTING 71 MG/DL (60-100); POTASSIUM SERUM 4.4 MMOL/L (3.5-5.1); SALICYLATE LEVEL < 3.0 MG/DL (<30); SODIUM LEVEL 142 MMOL/L (136-145); TOTAL PROTEIN 6.5 G/DL (5.7-8.2)
[2023-04-26 13:13] LABS: THYROID STIMULATING HORMONE 1.422 uIU/ML (0.55-4.78)
[2023-04-28] MEDS ORDERED: MAALOX 30 ML SUSP *UDC PO PRN (10:10)
[2023-04-28] MEDS ORDERED: MOM 30ML SUSPENSION UDC PO PRN (10:10)
[2023-04-28] MEDS ORDERED: traZODone 50 MG TAB PO PRN (10:10)
[2023-04-28] MEDS ORDERED: IBUPROFEN 400MG TAB PO PRN (10:10)
[2023-04-28] MEDS ORDERED: diphenhydrAMINE 25MG CAP PO PRN (10:10)
[2023-04-28] MEDS ORDERED: ACETAMINOPHEN TAB 650MG DOSE (2X325MG) PO PRN (10:10)
[2023-04-28 13:09] VITALS: BP 119/69; TEMP 97.8; O2SAT 100
[2023-04-28] MEDS: PARoxetine 25MG CR TAB (PAXIL CR) PO SCH (17:07)
[2023-04-28 18:50] VITALS: BP 127/83; TEMP 97.1
[2023-04-28] MEDS: MIRTAZAPINE 15 MG TAB PO SCH (21:06)
[2023-04-29 06:49] VITALS: BP 121/84; TEMP 97.1; O2SAT 99
[2023-04-29] MEDS: PARoxetine 25MG CR TAB (PAXIL CR) PO SCH (07:57)
[2023-04-29 18:04] VITALS: BP 130/76; TEMP 98.3; O2SAT 100
[2023-04-29] MEDS: MIRTAZAPINE 15 MG TAB PO SCH (21:24)
[2023-04-30 06:33] VITALS: BP 125/69; TEMP 97.3; O2SAT 98
[2023-04-30] MEDS: PARoxetine 25MG CR TAB (PAXIL CR) PO SCH (08:25)
[2023-04-30] MEDS ORDERED: cloNIDine 0.1MG TABLET PO SCH (09:00)
[2023-04-30] MEDS: hydrOXYzine 50 MG TAB PO SCH ×2 (09:49→20:22)
[2023-04-30 18:37] VITALS: BP 134/84; TEMP 97.9; O2SAT 95
[2023-04-30] MEDS: MIRTAZAPINE 15 MG TAB PO SCH (20:22)
[2023-05-01 06:35] VITALS: BP 140/86; TEMP 97.8; O2SAT 99
[2023-05-01] MEDS: hydrOXYzine 50 MG TAB PO SCH ×4 (09:06→23:56)
[2023-05-01] MEDS: PARoxetine 25MG CR TAB (PAXIL CR) PO SCH (09:06)
[2023-05-01] MEDS: risperiDONE 3 MG TAB PO SCH (14:50)
[2023-05-01] MEDS: BENZTROPINE 1 MG TAB PO SCH (14:50)
[2023-05-01 17:09] VITALS: BP 137/93; TEMP 96.9
[2023-05-01] MEDS: MIRTAZAPINE 15 MG TAB PO SCH (21:32)
[2023-05-02] MEDS: hydrOXYzine 50 MG TAB PO SCH ×4 (05:37→21:33)
[2023-05-02 06:40] VITALS: BP 134/89; TEMP 97.8; O2SAT 100
[2023-05-02] MEDS: BENZTROPINE 1 MG TAB PO SCH (08:19)
[2023-05-02] MEDS: risperiDONE 3 MG TAB PO SCH (08:19)
[2023-05-02] MEDS: PARoxetine 25MG CR TAB (PAXIL CR) PO SCH (08:19)
[2023-05-02] MEDS: LIDOCAINE 5% (LIDODERM) PATCH TD SCH (11:38)
[2023-05-02 15:19] VITALS: BP 145/86; TEMP 98.3; O2SAT 95
[2023-05-02] MEDS: MIRTAZAPINE 15 MG TAB PO SCH (21:33)
[2023-05-03 06:56] VITALS: BP 126/81; TEMP 98.6
[2023-05-03] MEDS: PARoxetine 25MG CR TAB (PAXIL CR) PO SCH (08:05)
[2023-05-03] MEDS: hydrOXYzine 50 MG TAB PO SCH ×4 (08:05→20:17)
[2023-05-03] MEDS: risperiDONE 3 MG TAB PO SCH (08:05)
[2023-05-03] MEDS: BENZTROPINE 1 MG TAB PO SCH (08:05)
[2023-05-03] MEDS: LIDOCAINE 5% (LIDODERM) PATCH TD SCH (08:06)
[2023-05-03 18:00] VITALS: BP 134/98; TEMP 99.1
[2023-05-03] MEDS: MIRTAZAPINE 15 MG TAB PO SCH (20:17)
[2023-05-04 06:46] VITALS: BP 141/95; TEMP 96.6; O2SAT 98
[2023-05-04] MEDS ORDERED: PARO25TA11 PO (07:10)
[2023-05-04] MEDS ORDERED: MIRT-10 PO (07:10)
[2023-05-04] MEDS ORDERED: HYDR50TA70 PO (07:10)
[2023-05-04] MEDS ORDERED: BENZ1TAB5 PO (07:10)
[2023-05-04] MEDS ORDERED: RISP-10 PO (07:10)
[2023-05-04] MEDS: BENZTROPINE 1 MG TAB PO SCH (08:24)
[2023-05-04] MEDS: hydrOXYzine 50 MG TAB PO SCH (08:24)
[2023-05-04] MEDS: PARoxetine 25MG CR TAB (PAXIL CR) PO SCH (08:24)
[2023-05-04] MEDS: risperiDONE 3 MG TAB PO SCH (08:24)
[2023-05-04] MEDS: LIDOCAINE 5% (LIDODERM) PATCH TD SCH (09:00)
== END 2023-05-04 11:31 | disposition home or self-care (01) | DRG 751 ==
LOC: M ED 11:34 → M ED INP 04-28 10:10 → M PSY 04-28 12:17
PROVIDERS: ADMIT Student in an Organized Health Care Education/Training Program; ATTEND Psychiatry & Neurology Child & Adolescent Psychiatry
DX: F33.3 Major depressive disorder, recurrent, severe with psychotic symptoms (principal); D68.51 Activated protein C resistance; R45.851 Suicidal ideations; F15.20 Other stimulant dependence, uncomplicated; K21.9 Gastro-esophageal reflux disease without esophagitis; M51.36 Other intervertebral disc degeneration, lumbar region; M50.30 Other cervical disc degeneration, unspecified cervical region; F41.9 Anxiety disorder, unspecified; F12.10 Cannabis abuse, uncomplicated; F60.89 Other specific personality disorders; F17.290 Nicotine dependence, other tobacco product, uncomplicated; Z59.02 Unsheltered homelessness; Z81.8 Family history of other mental and behavioral disorders; Z88.0 Allergy status to penicillin; Z88.8 Allergy status to other drugs, medicaments and biological substances